=== PATIENT | male | born 1975 | race African-American/Black ===

== ENCOUNTER 2018-10-13 10:26 | Emergency (ER) | payer OTHER ==
--- NOTE | 2018-10-13 11:02 | ED ---
Influenza-Like Illness - HPI Summary HPI Summary: A 42 y/o male accompanied by his presents to the ED c/o influenza-like symptoms reaching 7/10 in severity. In the ED room, the patient has a pulse of 84 BPM, O2 saturation of 98%, and blood pressure of 158/82. As per triage, "Chills, lightheadedness, body pain, vomiting, headache, weakness for 2 days. Hx renal failure, fistula to left upper arm". 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 She stated that the patient was heading to work even though he was vomiting and feeling dizzy, however, in the midst of him going to work he called her and stated that he felt like he was going to pass out. When the patient came home, his friends were holding him up. According to the patient, his symptoms started around 0300 this morning. He denies any CP, SOB (earlier, not currently), abdominal pain, back pain, burning with urination, blood in stool, rash, depression, anxiety, edema, headache, nausea, dizziness (earlier, not currently), vomiting (earlier, not currently), diarrhea, edema, blurred vision, double vision, ear ache, sore throat, however, he feels like his ears are "beating" and does have neck pain (aching). Additionally, he had chills. He noted that he urinates frequently, but that is his baseline. He took his HBP medications this morning, but vomited shortly after that. Patient has left arm fistula on bicep. 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 - History of Current Complaint Chief Complaint: EDFluSymptoms Hx Obtained From: Patient, Family/Optometrist/Practice Owner - Onset/Duration: Sudden Onset, Lasting Days, Still Present Severity: Moderate - 7/10 Associated Signs & Symptoms: Fever, Myalgia, Headache, Vomiting - Allergy/Home Medications Allergies/Adverse Reactions: Allergies Allergy/AdvReac Type Severity Reaction Status Date / Time NSAIDS (Non-Steroidal Allergy See Comment Verified 10/13/18 10:38 Anti-Inflamma Home Medications: Home Medications Clotrimazole 1% CREAM* [Clotrimazole 1%*] 1 applic TOPICAL BID 10/13/18 [ History Confirmed 10/13/18] DOXYcycline CAP(*) [DOXYcycline 100MG CAP(*)] 100 mg PO DAILY PRN 10/13/18 [ History Confirmed 10/13/18] Diltiazem TAB* [Cardizem 60 MG Tab*] 120 mg PO BID 10/13/18 [History Confirmed 10/13/18] Febuxostat(NF) [Uloric(NF)] 40 mg PO DAILY 10/13/18 [History Confirmed 10/13/18] hydrALAZINE TAB* [Apresoline TAB*] 25 mg PO TID 10/13/18 [History Confirmed 01/26] predniSONE TAB* [Deltasone 10 MG TAB*] 10 mg PO DAILY 10/13/18 [History Confirmed 10/13/18] PMH/Surg Hx/FS Hx/Imm Hx Endocrine/Hematology History: Denies: Hx Diabetes Cardiovascular History: Reports: Hx Hypertension - Surgical History Surgery Procedure, Year, and Place: 2 FISTULAS PUT IN (2014, BOTH). Infectious Disease History: No Infectious Disease History: Denies: Traveled Outside the [place] in Last 30 Days - Family History Known Family History: Positive: Cardiac Disease - MOTHER, Diabetes, Other - CANCER - Social History Alcohol Use: None Substance Use Type: Reports: None Hx Tobacco Use: No Smoking Status (MU): Never Smoked Tobacco Review of Systems Positive: Fever, Chills Positive: Other - NEGATIVE: DOUBLE VISION. Negative: Blurred Vision Positive: Other - POSITIVE: PATIENT'S EARS ARE "BEATING". Negative: Sore Throat , Ear Ache Negative: Chest Pain Negative: Shortness Of Breath Positive: Vomiting - RESOLVED, Other - NEGATIVE: BLOOD IN STOOL, CONSTIPATION. Negative: Abdominal Pain, Diarrhea, Nausea Positive: frequency - BASELINE. Negative: dysuria, hematuria Positive: Myalgia - RESOLVED, Other - POSITIVE: NECK PAIN; NEGATIVE: BACK PAIN. Negative: Edema Negative: Rash, Bruising Neurological: Other - POSITIVE: LIGHTHEADEDNESS (RESOLVED), DIZZINESS (RESOLVED) ; NEGATIVE: LOC Positive: Headache - RESOLVED, Weakness Negative: Anxious, Depressed All Other Systems Reviewed And Are Negative: No Physical Exam - Summary Physical Exam Summary: Appearance: Alert, conversive, nontoxic appearing Skin: Warm, dry, no mottling, no rashes, no contusions HEENT: EOMI, PERRL, moist mucous membranes Neck: No masses on the neck, supple Respiratory: Clear to auscultation, breath sounds present, no rales, no rhonchi , no wheezes Cardiovascular: RRR, pulses are symmetrical in both lower and upper extremities , systolic ejection murmur Abdomen: Soft, non-tender Bowel Sounds: Present Musculoskeletal: No CVA tenderness, no obvious deformity, moving all extremities in a grossly normal manner Neurological: A&Ox3, CN II-XII Intact, moving all extremities symmetrically Psychiatric: Normal affect and mood Triage Information Reviewed: Yes Vital Signs On Initial Exam: Initial Vitals Temp Pulse Resp BP Pulse Ox 100.2 F 80 19 174/79 100 10/13/18 10:33 10/13/18 10:33 10/13/18 10:33 10/13/18 10:33 10/13/18 10:33 Vital Signs Reviewed: Yes Diagnostics - Vital Signs Vital Signs Temp Pulse Resp BP Pulse Ox 10/13/18 10:33 100.2 F 80 19 174/79 100 - Laboratory Lab Results: Lab Results 10/13/18 Range/Units 10:48 Influenza A (Rapid) Negative (Negative) Influenza B (Rapid) Negative (Negative) Result Diagrams: 10/13/18 11:45 10/13/18 15:09 Lab Statement: Any lab studies that have been ordered have been reviewed, and results considered in the medical decision making process. - Radiology CXR Radiology Interpretation Completed By: Radiologist Summary of Radiographic Findings: No evidence for acute intrathoracic disease. ED PHYSICIAN REVIEWED THIS RADIOLOGY REPORT. - EKG 1246 Cardiac Rate: NL - 81 BPM EKG Rhythm: Sinus Rhythm - 81 BPM Summary of EKG Findings: QRS NORMAL, QTc NORMAL, HYPERACUTE T-WAVES NOTED, MILD EARLY REPOLARIZATION PATTERN, NON-STEMI 1343 Cardiac Rate: NL - 94 BPM EKG Rhythm: Sinus Rhythm - 94 BPM Summary of EKG Findings: QRS NORMAL, QTc NORMAL, IMPROVEMENT OF HYPERACUTE T- WAVES, NON-STEMI. Re-Evaluation - Re-Evaluation First Eval Re-Evaluation Time: 12:28 Change: Unchanged Comment: PATIENT WAS GIVEN HIS LAB RESULTS. PATIENT ASKED MD TO CALL LIQUIFIED NATURAL GAS SPECIALIST IN [place]. CURRENTLY, PATIENT IS BEING TREATED FOR HIS HYPERKALEMIA WITH DEXTROSE, REGULAR INSULIN, CALCIUM GLUCONATE, AND MORE IV FLUIDS. Second Eval Re-Evaluation Time: 12:54 Change: Unchanged Comment: ED MD CALLED FOR PATIENT'S LIQUIFIED NATURAL GAS SPECIALIST. NO ANSWER, BUT LEFT MESSAGE. Third Eval Re-Evaluation Time: 14:15 Change: Unchanged Comment: UPDATE PATIENT ON RESULTS AND PLAN. Fourth Eval Re-Evaluation Time: 16:18 Change: Improved Comment: PATIENT CAN WALK AROUND ED, HOWEVER, HIS STOMACH IS STILL UPSET. PATIENT NOTED THAT HE FEELS LIKE HE CAN GO HOME. Fifth Eval Re-Evaluation Time: 17:00 Change: Unchanged Comment: DISCUSSED RESULTS AND PLAN/DISCHARGE WITH PATIENT. Flu Symptom Course/Dx - Course Course Of Treatment: A 42 y/o male accompanied by his presents to the ED c/ o influenza-like symptoms reaching 7/10 in severity. In the ED room, the patient has a pulse of 84 BPM, O2 saturation of 98%, and blood pressure of 158/ 82. Patient stated that he has been experiencing influenza like-symptoms since 0300 this morning such as vomiting, dizziness, lightheadedness, headache, body pain, and weakness. Physical examination findings significant for systolic ejection murmur. A CXR revealed no evidence for acute intrathoracic disease. An EKG revealed NSR of 81 BPM, normal QRS and QTc, hyperacute T-waves noted, mild early repolarization pattern, non-stemi. Another EKG revealed NSR of 94 BPM, normal QRS and QTc, improvement of hyperacute T-waves, non-stemi. Hematology, Chemistry, and serology screens were done. No significant laboratory abnormalities were found except hyperkalemia of 6 mmol/L. Additionally, influenza screens were negative. In the ED course, the patient received Calcium Gluconate, Magnesium Sulfate, Dextrose, Zofran, Regular Insulin, and IV fluids. Patient care was discussed with hospitalist, Dr. Gaetano Jaramillo, who recommended repeating potassium and having the patient walk around the ED. Patient was able to walk around ED with no issues. Patient will be discharged with a diagnosis of viral syndrome, dehydration, hyperkalemia, and acute renal insufficiency. Patient is agreeable with this plan. - Diagnoses Provider Diagnoses: Viral syndrome, Acute renal insufficiency, Dehydration, Hyperkalemia - Physician Notifications Discussed Care Of Patient With: Gaetano Jaramillo Time Discussed With Above Provider: 13:05 Instructed by Provider To: Other - ASKED ED MD TO REPEAT POTASSIUM AND HAVE HIM WALK AROUND THE ED. 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 return if worse or any new symptoms. It is important to take all medications as previously instructed. I have sent a prescription for zofran to your pharmacy. Take for nausea. Take tylenol for any fever. - Billing Disposition and Condition Condition: STABLE Disposition: Home - Attestation Statements Document Initiated by Chel: Yes Documenting Scribe: Tyrese Finley Provider For Whom Chel is Documenting (Include Credential): Meli Spencer MD Scribe Attestation: Tyrese Flowers, scribed for Meli Spencer MD on 10/13/18 at 1830. Scribe Documentation Reviewed: Yes Provider Attestation: The documentation as recorded by the Tyrese joe accurately reflects the service I personally performed and the decisions made by , Meli Spencer MD Status of Scribe Document: Viewed
[2018-10-13] MEDS ORDERED: NS 0.9% 1000 ML* 1,000 ML IV ONE ×2 (11:16→12:24)
[2018-10-13] MEDS ORDERED: Ondansetron INJ* 2 MG/ML VIAL IV ONE (11:17)
[2018-10-13 11:52] LABS: ABS Basophils 0 10^3/ul (0-0.2); ABS Eosinophils 0 10^3/ul (0-0.6); ABS Lymphocytes 0.1 10^3/ul (1.0-4.8); ABS Monocytes 0.3 10^3/ul (0-0.8); ABS Neutrophils 6.5 10^3/ul (1.5-7.7); ABS Nucleated RBC 0 10^3/ul; Eosinophil % 0 %; Hematocrit 35 % (42-52); Lymphocyte % 1.7 %; Mean Corpuscular HGB Conc 34 g/dl (31-36); Mean Corpuscular Hemoglobin 32 pg (27-31); Mean Corpuscular Volume 94 fL (80-94); Mean Platelet Volume 7.6 fL (7.4-10.4); Nucleated Red Blood Cells % 0; Platelet Count 190 10^3/ul (150-450); Red Blood Count 3.78 10^6/ul (4.00-5.40); Red Cell Distribution Width 13 % (10.5-15); White Blood Count 6.9 10^3/ul (3.5-10.8)
[2018-10-13 12:08] LABS: Albumin 4.6 g/dL (3.2-5.2); Albumin/Globulin Ratio 1.5 (1-3); BUN/Creatinine Ratio 10.2 (8-20); Calcium 8.6 mg/dL (8.6-10.3); EGFR Non-African American 7.3 (>60); Magnesium 1.7 mg/dL (1.9-2.7); Phosphorus 3.7 mg/dL (2.5-5.0); Total Bilirubin 0.6 mg/dL (0.2-1.0); Total Protein 7.6 g/dL (6.4-8.9)
[2018-10-13] MEDS ORDERED: Magnesium Sulfate 2 GM IV* 2 GM/50 ML BAG IVPB ONE (12:22)
[2018-10-13] MEDS ORDERED: Dextrose 50% Syringe 50 ML* 25 GM/50 ML SYRINGE IV PUSH ONE (12:22)
[2018-10-13] MEDS ORDERED: Calcium Gluconate INJ* 1 GM in NS 0.9% 100 ML* 100 ML IVPB ONE (12:23)
[2018-10-13] MEDS ORDERED: Insulin REGULAR(*) 1 UNITS UNIT IV PUSH ONE (12:24)
[2018-10-13] MEDS ORDERED: NS 0.9% 100 ML* 100 ML ONE (12:42)
[2018-10-13] MEDS ORDERED: Sodium Polystyrene ORAL.SOL* 15 GM/60 ML BTL PO ONE (13:09)
[2018-10-13] MEDS ORDERED: Patiromer POWDER* 8.4 GM PAK PO SCH (15:00)
[2018-10-13 15:38] LABS: BUN/Creatinine Ratio 10.4 (8-20); Calcium 8.4 mg/dL (8.6-10.3); EGFR Non-African American 7.6 (>60); Potassium 4.8 mmol/L (3.5-5.0)
[2018-10-13] MEDS ORDERED: Acetaminophen TAB* 325 MG PO ONE (15:48)
[2018-10-13] MEDS ORDERED: Ondansetron ODT TAB* 4 MG PO ONE (16:18)
[2018-10-13 17:46] VITALS: BP 133/67
== END 2018-10-13 17:45 | disposition home or self-care (01) ==
LOC: ED 10:26
DX: B34.9 Viral infection, unspecified (principal); E86.0 Dehydration; E87.5 Hyperkalemia; R50.9 Fever, unspecified; N28.9 Disorder of kidney and ureter, unspecified; R11.10 Vomiting, unspecified; R42 Dizziness and giddiness
CPT/HCPCS: 36415; 71045; 80048; 80053; 83605; 83735; 84100; 85025; 87040; 93005; 96361; 96365; 96366; 96375; 99283; A9270-GY; J0610; J2405; J3475

== ENCOUNTER → 2018-10-29 12:44 | Emergency (ER) | payer OTHER ==
[~2018-10-29 12:44] MED LIST: Morphine VIAL* 4 MG/ML VIAL (1 ml vial) IV ONE; Ondansetron INJ* 2 MG/ML VIAL IV ONE; methylPREDNISolone SOD 40 MG* 1 ML VIAL IV ONE
--- NOTE | 2018-10-29 13:06 | ED ---
Lower Extremity - HPI Summary HPI Summary: Patient presents with acute onset right lateral ankle pain over the past 2-3 days. He's noted some mild swelling here and very tender to palpation. Also hurts to bear weight and move. He has a history of gout in his hallux on this side and this feels similar. Denies injury but does play basketball - may have tweaked something? Additionally he denies numbness, tingling, weakness. No dipika fever but has felt warm and a little "off" lately. History of stage IV renal failure with fistula in place to left arm. Has been following a renal diet until he qualifies for dialysis. History of gout and has done well with prednisone in the past via IV (prefers this to PO or IM). He currently takes allopurinol and uloric prevent gout flair ups - cannot take cholchicine. Obviously due to his renal failure he cannot use NSAID's. reports he was admitted recently w/ hyperkalemia. - History of Current Complaint Chief Complaint: EDExtremityLower Stated Complaint: RIGHT ANKLE PAIN Time Seen by Provider: 10/29/18 12:49 Hx Obtained From: Patient, Family/Business Executive - , 3 young children Pain Intensity: 9 - Allergies/Home Medications Allergies/Adverse Reactions: Allergies Allergy/AdvReac Type Severity Reaction Status Date / Time NSAIDS (Non-Steroidal Allergy See Comment Verified 10/29/18 12:50 Anti-Inflamma Home Medications: Home Medications Allopurinol 100 mg PO DAILY 10/29/18 [History Confirmed 10/29/18] Calcitriol CAP* [Rocaltrol CAP*] 1 cap PO DAILY 10/29/18 [History Confirmed ] PMH/Surg Hx/FS Hx/Imm Hx Previously Healthy: Yes Endocrine/Hematology History: Denies: Hx Diabetes Cardiovascular History: Reports: Hx Hypertension History: Reports: Hx Chronic Renal Failure - stage 4, CC 17, fistula in Lt arm, pending dialysis Musculoskeletal History: Reports: Hx Gout - Lt hallux - Surgical History Surgery Procedure, Year, and Place: 2 FISTULAS PUT IN (2014, BOTH). Infectious Disease History: No Infectious Disease History: Denies: Traveled Outside the [place] in Last 30 Days - Family History Known Family History: Positive: Cardiac Disease - MOTHER, Diabetes, Other - CANCER - Social History Lives: With Family Alcohol Use: None Hx Substance Use: No Substance Use Type: Reports: None Hx Tobacco Use: No Smoking Status (MU): Never Smoked Tobacco Review of Systems Constitutional: Negative Cardiovascular: Negative Respiratory: Negative Gastrointestinal: Negative Positive: no symptoms reported Positive: Arthralgia, Edema Negative: Rash, Bruising Neurological: Negative Psychological: Normal All Other Systems Reviewed And Are Negative: Yes Physical Exam Triage Information Reviewed: Yes Vital Signs On Initial Exam: Initial Vitals Temp Pulse Resp BP Pulse Ox 99.2 F 91 16 163/85 99 10/29/18 12:54 10/29/18 12:54 10/29/18 12:54 10/29/18 12:54 10/29/18 12:54 Vital Signs Reviewed: Yes Appearance: Positive: Well-Appearing, Well-Nourished, Pain Distress - mild at rest - moderate with movement, palpation Skin: Positive: Warm, Skin Color Reflects Adequate Perfusion, Dry - no lesions, no ecchymosis Head/Face: Positive: Normal Head/Face Inspection Eyes: Positive: EOMI ENT: Positive: Hearing grossly normal Respiratory/Lung Sounds: Positive: Breath Sounds Present Cardiovascular: Positive: Pulses are Symmetrical in both Upper and Lower Extremities Musculoskeletal: Positive: Pain @ - Rt lateral ankle very tender to even light touch - mild edema compared to Lt - FROM (active and passive); no streaking, mild erythema Neurological: Positive: Normal, Sensory/Motor Intact, Alert, Oriented to Person Place, Time, CN Intact II-III Psychiatric: Positive: Normal Diagnostics - Vital Signs Vital Signs Temp Pulse Resp BP Pulse Ox 10/29/18 12:54 99.2 F 91 16 163/85 99 - Laboratory Result Diagrams: 10/29/18 13:22 10/29/18 13:22 Lab Statement: Any lab studies that have been ordered have been reviewed, and results considered in the medical decision making process. Lower Extremity Course/Dx - Course Course Of Treatment: XR: no fx, no effusion. Labs: 8.9 uric acid - BUN 75 ( better) Creat 9.25 (worse) - electrolytes WNL, ESR 24. Provided with prednisone - pt prefers IV d/t pain level and past experience. Reports no relief minutes after prednisone which he understands this will take time but will order morphine in the meantime to address acute pain - he's had this w/o difficulty. He will f/u w/ outpt team to address this issue tomorrow and return to ED if danger s/sx present. - Diagnoses Provider Diagnoses: Gout of right ankle Discharge - Sign-Out/Discharge Documenting (check all that apply): Patient Departure - Discharge Plan Condition: Stable Disposition: HOME Prescriptions: predniSONE TAB* [Deltasone TAB*] 50 mg PO DAILY #5 tab Patient Education Materials: Low Purine Diet (ED), Gout (ED) Forms: *Work Release Referrals: Anival BUSTAMANTE,Caden [Medical Doctor] - Additional Instructions: Take medication as directed Use crutches to avoid weight bearing then advance to weight bearing as tolerated Follow-up with PCP this week - call tomorrow to schedule an appointment *IF YOU FEEL WORSE, RETURN TO THE ED - Billing Disposition and Condition Condition: STABLE Disposition: Home
[2018-10-29 13:37] LABS: ABS Basophils 0 10^3/ul (0-0.2); ABS Eosinophils 0.1 10^3/ul (0-0.6); ABS Monocytes 0.6 10^3/ul (0-0.8); ABS Neutrophils 4.3 10^3/ul (1.5-7.7); ABS Nucleated RBC 0 10^3/ul; Hematocrit 36 % (42-52); Hemoglobin 12.1 g/dl (14.0-18.0); Mean Corpuscular HGB Conc 33 g/dl (31-36); Mean Corpuscular Hemoglobin 31 pg (27-31); Mean Corpuscular Volume 93 fL (80-94); Mean Platelet Volume 7.3 fL (7.4-10.4); Nucleated Red Blood Cells % 0; Platelet Count 266 10^3/ul (150-450); Red Blood Count 3.89 10^6/ul (4.00-5.40); Red Cell Distribution Width 13 % (10.5-15)
[2018-10-29 13:52] LABS: Albumin 4.5 g/dL (3.2-5.2); Albumin/Globulin Ratio 1.5 (1-3); C Reactive Protein 5.14 mg/L (<8.01); Calcium 9.2 mg/dL (8.6-10.3); EGFR Non-African American 6.3 (>60); Globulin 3.1 g/dL (2-4); Potassium 4.7 mmol/L (3.5-5.0); Total Bilirubin 0.5 mg/dL (0.2-1.0); Total Protein 7.6 g/dL (6.4-8.9); Uric Acid 8.9 mg/dL (4.4-7.6)
[2018-10-29 14:33] LABS: Erythrocyte Sed Rate 24 mm/Hr (0-14)
[2018-10-29 17:49] VITALS: BP 124/77
== END | disposition home or self-care (01) ==
LOC: ED 12:44
DX: M10.9 Gout, unspecified (principal); I10 Essential (primary) hypertension; I12.9 Hypertensive chronic kidney disease with stage 1 through stage 4 chronic kidney disease, or unspecified chronic kidney disease; N18.4 Chronic kidney disease, stage 4 (severe)
CPT/HCPCS: 36415; 80053; 83605; 84550; 85025; 85652; 86140; 96374; 96375; 99283; J2270; J2405; J2920

== ENCOUNTER → 2019-04-03 17:43 | Emergency (ER) | payer OTHER ==
[2019-04-03 19:28] LABS: ABS Eosinophils 0.1 10^3/ul (0-0.6); ABS Lymphocytes 1.2 10^3/ul (1.0-4.8); ABS Monocytes 0.4 10^3/ul (0-0.8); ABS Neutrophils 1.8 10^3/ul (1.5-7.7); Eosinophil % 2.7 %; Hematocrit 27 % (42-52); Hemoglobin 9.3 g/dL (14.0-18.0); Lymphocyte % 32.8 %; Mean Corpuscular HGB Conc 34 g/dL (31-36); Mean Corpuscular Hemoglobin 32 pg (27-31); Mean Corpuscular Volume 92 fL (80-94); Mean Platelet Volume 7.3 fL (7.4-10.4); Nucleated Red Blood Cells % 0.1; Platelet Count 167 10^3/uL (150-450); Red Blood Count 2.93 10^6 /uL (4.18-5.48); Red Cell Distribution Width 13 % (10-15); White Blood Count 3.6 10^3/uL (3.5-10.8)
[2019-04-03 19:42] LABS: ALT 36 U/L (7-52); AST 29 U/L (13-39); Albumin 3.8 g/dL (3.2-5.2); Albumin/Globulin Ratio 1.5 (1-3); Alkaline Phosphatase 72 U/L (34-104); Anion Gap 12 mmol/L (2-11); BUN/Creatinine Ratio 8.9 (8-20); Blood Urea Nitrogen 122 mg/dL (6-24); C Reactive Protein < 1.00 mg/L (<8.01); CO2 Carbon Dioxide 21 mmol/L (22-32); Calcium 6.7 mg/dL (8.6-10.3); Chloride 104 mmol/L (101-111); EGFR African American 4.9 (>60); Globulin 2.6 g/dL (2-4); Glucose 83 mg/dL (70-100); Potassium 5.6 mmol/L (3.5-5.0); Sodium 137 mmol/L (135-145); Total Protein 6.4 g/dL (6.4-8.9)
[2019-04-03 19:43] LABS: Troponin I 0.01 ng/mL (<0.04)
[2019-04-03 19:50] LABS: Urine Appearance Cloudy; Urine Bacteria Absent (Absent); Urine Bilirubin Negative (Negative); Urine Blood 2+ (Negative); Urine Color Straw; Urine Glucose Negative (Negative); Urine Ketones Negative (Negative); Urine Nitrite Negative (Negative); Urine Protein 2+(100 mg/dL) (Negative); Urine Red Blood Cell Trace(0-2/hpf) (Absent); Urine Specific Gravity 1.006 (1.010-1.030); Urine Urobilinogen Negative (Negative); Urine White Blood Cell Trace(0-5/hpf) (Absent)
--- NOTE | 2019-04-03 19:58 | ED ---
Complaint/Male - History of Current Complaint Chief Complaint: EDUrogenitalProblems Time Seen by Provider: 04/03/19 18:05 - Allergies/Home Medications Allergies/Adverse Reactions: Allergies Allergy/AdvReac Type Severity Reaction Status Date / Time NSAIDS (Non-Steroidal Allergy See Comment Verified 04/03/19 17:50 Anti-Inflamma PMH/Surg Hx/FS Hx/Imm Hx Endocrine/Hematology History: Denies: Hx Diabetes Cardiovascular History: Reports: Hx Hypertension Denies: Hx Pacemaker/ICD History: Reports: Hx Chronic Renal Failure - stage 4, CC 17, fistula in Lt arm, pending dialysis, Hx Renal Disease Musculoskeletal History: Reports: Hx Gout - Lt hallux Sensory History: Denies: Hx Hearing Aid Psychiatric History: Denies: Hx Panic Disorder - Surgical History Surgery Procedure, Year, and Place: 2 FISTULAS PUT IN (2014, BOTH). Infectious Disease History: No Infectious Disease History: Denies: Traveled Outside the [place] in Last 30 Days - Family History Known Family History: Positive: Cardiac Disease - MOTHER, Diabetes, Other - CANCER - Social History Alcohol Use: None Hx Substance Use: No Substance Use Type: Reports: None Hx Tobacco Use: No Smoking Status (MU): Never Smoked Tobacco Physical Exam Vital Signs On Initial Exam: Initial Vitals Temp Pulse Resp BP Pulse Ox 97.6 F 77 16 173/101 100 04/03/19 17:47 04/03/19 17:47 04/03/19 17:47 04/03/19 17:47 04/03/19 17:47 Diagnostics - Vital Signs Vital Signs Temp Pulse Resp BP Pulse Ox 04/03/19 19:31 68 3 160/96 100 04/03/19 19:01 72 150/91 98 04/03/19 19:00 68 100 04/03/19 18:31 67 146/87 99 04/03/19 18:04 65 100 04/03/19 18:03 71 158/94 100 04/03/19 18:01 69 170/99 100 04/03/19 17:47 97.6 F 77 16 173/101 100 - Laboratory Lab Results: Lab Results 04/03/19 04/03/19 04/03/19 Range/Units 19:17 19:17 19:19 WBC 3.6 (3.5-10.8) 10^3/uL RBC 2.93 L (4.18-5.48) 10^6 /uL Hgb 9.3 L (14.0-18.0) g/dL Hct 27 L (42-52) % MCV 92 (80-94) fL MCH 32 H (27-31) pg MCHC 34 (31-36) g/dL RDW 13 (10-15) % Plt Count 167 (150-450) 10^3/uL MPV 7.3 L (7.4-10.4) fL Neut % (Auto) 51.7 % Lymph % (Auto) 32.8 % [place] % (Auto) 11.7 % Eos % (Auto) 2.7 % Baso % (Auto) 1.1 % Absolute Neuts (auto) 1.8 (1.5-7.7) 10^3/ul Absolute Lymphs (auto) 1.2 (1.0-4.8) 10^3/ul Absolute Monos (auto) 0.4 (0-0.8) 10^3/ul Absolute Eos (auto) 0.1 (0-0.6) 10^3/ul Absolute Basos (auto) 0.0 (0-0.2) 10^3/ul Absolute Nucleated RBC 0.0 10^3/ul Nucleated RBC % 0.1 Sodium 137 (135-145) mmol/L Potassium 5.6 H (3.5-5.0) mmol/L Chloride 104 (101-111) mmol/L Carbon Dioxide 21 L (22-32) mmol/L Anion Gap 12 H (2-11) mmol/L BUN 122 H (6-24) mg/dL Creatinine 13.68 H (0.67-1.17) mg/dL Est GFR ( Amer) 4.9 (>60) Est GFR (Non-Af Amer) 4.0 (>60) BUN/Creatinine Ratio 8.9 (8-20) Glucose 83 (70-100) mg/dL Calcium 6.7 L (8.6-10.3) mg/dL Total Bilirubin 0.40 (0.2-1.0) mg/dL AST 29 (13-39) U/L ALT 36 (7-52) U/L Alkaline Phosphatase 72 (34-104) U/L Troponin I 0.01 (<0.04) ng/mL C-Reactive Protein < 1.00 (<8.01) mg/L Total Protein 6.4 (6.4-8.9) g/dL Albumin 3.8 (3.2-5.2) g/dL Globulin 2.6 (2-4) g/dL Albumin/Globulin Ratio 1.5 (1-3) Urine Color Straw Urine Appearance Cloudy Urine pH 5.0 (5-9) Ur Specific [place] 1.006 L (1.010-1.030) Urine Protein 2+(100 mg/dl) A (Negative) Urine Ketones Negative (Negative) Urine Blood 2+ A (Negative) Urine Nitrate Negative (Negative) Urine Bilirubin Negative (Negative) Urine Urobilinogen Negative (Negative) Ur Leukocyte Esterase Negative (Negative) Urine WBC (Auto) Trace(0-5/hpf) (Absent) Urine RBC (Auto) Trace(0-2/hpf) (Absent) Urine Bacteria Absent (Absent) Urine Glucose Negative (Negative) Result Diagrams: 04/03/19 19:17 04/03/19 19:17 Lab Statement: Any lab studies that have been ordered have been reviewed, and results considered in the medical decision making process.
--- NOTE | 2019-04-03 21:11 | ED ---
GI/ HPI - HPI Summary HPI Summary: Patient complains of increased urinary frequency and irritation at the tip of his penis with urination. States he had similar symptoms when he had a UTI before. Also complains of exertional SOB 1 week. Patient states he works out with weights with no decrease in function, but has noticed that when he walks up a hill he has to stop 5 or 6 times with some associated chest tightness. Denies fever, cough, sore throat, CP, N/V/D, abdominal pain, change in BM, testicular symptoms or pain or penile discharge. Medical history is FSGS, associated hypertension. Nonsmoker. Sexually active with one partner. Patient states he has fistula in his left arm but has not started dialysis. 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 - History of Current Complaint Chief Complaint: EDUrogenitalProblems Time Seen by Provider: 04/03/19 18:05 Stated Complaint: FUNNY TASTE IN MOUTH LIKE METAL, UTI PER PT Hx Obtained From: Patient Onset/Duration: Started Days Ago Timing: Intermittent Severity: Mild Current Severity: Mild Pain Intensity: 2 Additional Locations for Males: Penis Associated Signs and Symptoms: Positive: Dysuria Aggravating Factor(s): Urination Alleviating Factor(s): Nothing - Allergy/Home Medications Allergies/Adverse Reactions: Allergies Allergy/AdvReac Type Severity Reaction Status Date / Time NSAIDS (Non-Steroidal Allergy See Comment Verified 04/03/19 17:50 Anti-Inflamma PMH/Surg Hx/FS Hx/Imm Hx Endocrine/Hematology History: Denies: Hx Diabetes Cardiovascular History: Reports: Hx Hypertension Denies: Hx Pacemaker/ICD History: Reports: Hx Chronic Renal Failure - stage 4, CC 17, fistula in Lt arm, pending dialysis, Hx Renal Disease Musculoskeletal History: Reports: Hx Gout - Lt hallux Sensory History: Denies: Hx Hearing Aid Opthamlomology History: Denies: Hx Eye Prosthesis EENT History: Denies: Hx Deafness Neurological History: Denies: Hx Dementia Psychiatric History: Denies: Hx Panic Disorder - Surgical History Surgery Procedure, Year, and Place: 2 FISTULAS PUT IN (2014, BOTH). Infectious Disease History: No Infectious Disease History: Denies: Traveled Outside the [place] in Last 30 Days - Family History Known Family History: Positive: Cardiac Disease - MOTHER, Diabetes, Other - CANCER - Social History Alcohol Use: None Hx Substance Use: No Substance Use Type: Reports: None Hx Tobacco Use: No Smoking Status (MU): Never Smoked Tobacco Review of Systems Constitutional: Negative Eyes: Negative ENT: Negative Cardiovascular: Negative Respiratory: Negative Gastrointestinal: Negative Positive: dysuria. Negative: discharge Musculoskeletal: Negative Skin: Negative Neurological: Negative Psychological: Normal All Other Systems Reviewed And Are Negative: Yes Physical Exam - Summary Physical Exam Summary: No peripheral edema. Lung sounds clear to auscultation bilaterally. Fistula in left arm pain by auscultation. Vital Signs On Initial Exam: Initial Vitals Temp Pulse Resp BP Pulse Ox 97.6 F 77 16 173/101 100 04/03/19 17:47 04/03/19 17:47 04/03/19 17:47 04/03/19 17:47 04/03/19 17:47 Vital Signs Reviewed: Yes Appearance: Positive: Well-Appearing Skin: Positive: Warm Head/Face: Positive: Normal Head/Face Inspection Eyes: Positive: Normal Neck: Positive: Supple Respiratory/Lung Sounds: Positive: Clear to Auscultation Cardiovascular: Positive: Normal Abdomen Description: Positive: Nontender Male Genital Exam: Positive: Normal Genitalia Musculoskeletal: Positive: Normal Neurological: Positive: Normal Psychiatric: Positive: Normal AVPU Assessment: Alert - [place] Coma Scale Best Eye Response: 4 - Spontaneous Best Motor Response: 6 - Obeys Commands Best Verbal Response: 5 - Oriented Coma Scale Total: 15 Diagnostics - Vital Signs Vital Signs Temp Pulse Resp BP Pulse Ox 04/03/19 19:31 68 3 160/96 100 04/03/19 19:01 72 150/91 98 04/03/19 19:00 68 100 04/03/19 18:31 67 146/87 99 04/03/19 18:04 65 100 04/03/19 18:03 71 158/94 100 04/03/19 18:01 69 170/99 100 04/03/19 17:47 97.6 F 77 16 173/101 100 - Laboratory Lab Results: Lab Results 04/03/19 04/03/19 04/03/19 Range/Units 19:17 19:17 19:19 WBC 3.6 (3.5-10.8) 10^3/uL RBC 2.93 L (4.18-5.48) 10^6 /uL Hgb 9.3 L (14.0-18.0) g/dL Hct 27 L (42-52) % MCV 92 (80-94) fL MCH 32 H (27-31) pg MCHC 34 (31-36) g/dL RDW 13 (10-15) % Plt Count 167 (150-450) 10^3/uL MPV 7.3 L (7.4-10.4) fL Neut % (Auto) 51.7 % Lymph % (Auto) 32.8 % [place] % (Auto) 11.7 % Eos % (Auto) 2.7 % Baso % (Auto) 1.1 % Absolute Neuts (auto) 1.8 (1.5-7.7) 10^3/ul Absolute Lymphs (auto) 1.2 (1.0-4.8) 10^3/ul Absolute Monos (auto) 0.4 (0-0.8) 10^3/ul Absolute Eos (auto) 0.1 (0-0.6) 10^3/ul Absolute Basos (auto) 0.0 (0-0.2) 10^3/ul Absolute Nucleated RBC 0.0 10^3/ul Nucleated RBC % 0.1 Sodium 137 (135-145) mmol/L Potassium 5.6 H (3.5-5.0) mmol/L Chloride 104 (101-111) mmol/L Carbon Dioxide 21 L (22-32) mmol/L Anion Gap 12 H (2-11) mmol/L BUN 122 H (6-24) mg/dL Creatinine 13.68 H (0.67-1.17) mg/dL Est GFR ( Amer) 4.9 (>60) Est GFR (Non-Af Amer) 4.0 (>60) BUN/Creatinine Ratio 8.9 (8-20) Glucose 83 (70-100) mg/dL Calcium 6.7 L (8.6-10.3) mg/dL Total Bilirubin 0.40 (0.2-1.0) mg/dL AST 29 (13-39) U/L ALT 36 (7-52) U/L Alkaline Phosphatase 72 (34-104) U/L Troponin I 0.01 (<0.04) ng/mL C-Reactive Protein < 1.00 (<8.01) mg/L Total Protein 6.4 (6.4-8.9) g/dL Albumin 3.8 (3.2-5.2) g/dL Globulin 2.6 (2-4) g/dL Albumin/Globulin Ratio 1.5 (1-3) Urine Color Straw Urine Appearance Cloudy Urine pH 5.0 (5-9) Ur Specific [place] 1.006 L (1.010-1.030) Urine Protein 2+(100 mg/dl) A (Negative) Urine Ketones Negative (Negative) Urine Blood 2+ A (Negative) Urine Nitrate Negative (Negative) Urine Bilirubin Negative (Negative) Urine Urobilinogen Negative (Negative) Ur Leukocyte Esterase Negative (Negative) Urine WBC (Auto) Trace(0-5/hpf) (Absent) Urine RBC (Auto) Trace(0-2/hpf) (Absent) Urine Bacteria Absent (Absent) Urine Glucose Negative (Negative) Result Diagrams: 04/03/19 19:17 04/03/19 19:17 Lab Statement: Any lab studies that have been ordered have been reviewed, and results considered in the medical decision making process. GIGU Course/Dx - Course Course Of Treatment: Patient complains of increased urinary frequency and irritation at the tip of his penis with urination. States he had similar symptoms when he had a UTI before. Also complains of exertional SOB 1 week. Patient states he works out with weights with no decrease in function, but has noticed that when he walks up a hill he has to stop 5 or 6 times with some associated chest tightness. Denies fever, cough, sore throat, CP, N/V/D, abdominal pain, change in BM, testicular symptoms or pain or penile discharge. Medical history is FSGS, associated hypertension. Nonsmoker. Sexually active with one partner. Patient states he has fistula in his left arm but has not started dialysis. 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 Vital signs within normal limits. No peripheral edema. Lung sounds clear to auscultation bilaterally. Fistula in left arm pain by auscultation. Chest X-ray unremarkable. Hgb 9.3. Potassium 5.6. BUN 122. Creatinine 13.68. Calcium 6.7. Discussed patient and patient labs with patient's haunted history tour guide. on-call for patient's haunted history tour guide recommended transfer to their affiliate [facility] in [place] for dialysis. Patient agreed. Accepting physician at [place] Dr. Mckee attending for family medicine. Patient will be transferred ED to floor bed. - Diagnoses Provider Diagnoses: Acute renal failure Discharge - Sign-Out/Discharge Documenting (check all that apply): Patient Departure Patient Received Moderate/Deep Sedation with Procedure: No - Discharge Plan Condition: Stable Disposition: TRANS HIGHER LVL OF CARE FAC Referrals: Caden Florian MD [Primary Care Provider] - - Billing Disposition and Condition Condition: STABLE Disposition: Trans Higher Lvl of Care Fac
[2019-04-03 23:10] VITALS: BP 144/92
[2019-04-04 13:28] LABS: Neisseria gonorrhoeae (GC) RNA Negative (Negative)
== END | disposition short-term general hospital (02) ==
LOC: ED 17:43
DX: N17.9 Acute kidney failure, unspecified (principal); I12.9 Hypertensive chronic kidney disease with stage 1 through stage 4 chronic kidney disease, or unspecified chronic kidney disease; N18.4 Chronic kidney disease, stage 4 (severe)
CPT/HCPCS: 36415; 71046; 80053; 81003; 81015; 83880; 84484; 85025; 86140; 87086; 87491; 87591; 93005; 99284

== ENCOUNTER 2019-06-12 18:07 | Emergency (ER) | payer OTHER ==
[2019-06-12 20:44] LABS: ABS Basophils 0.1 10^3/ul (0-0.2); ABS Eosinophils 0.1 10^3/ul (0-0.6); ABS Monocytes 0.5 10^3/ul (0-0.8); ABS Neutrophils 2.4 10^3/ul (1.5-7.7); Eosinophil % 3.5 %; Hematocrit 26 % (42-52); Lymphocyte % 25.3 %; Mean Corpuscular HGB Conc 34 g/dL (31-36); Mean Corpuscular Hemoglobin 31 pg (27-31); Mean Corpuscular Volume 92 fL (80-94); Mean Platelet Volume 7.1 fL (7.4-10.4); Nucleated Red Blood Cells % 0.1; Platelet Count 187 10^3/uL (150-450); Red Blood Count 2.87 10^6 /uL (4.18-5.48); Red Cell Distribution Width 13 % (10-15); White Blood Count 4.1 10^3/uL (3.5-10.8)
[2019-06-12 21:01] LABS: Albumin/Globulin Ratio 1.5 (1-3); Calcium 6.6 mg/dL (8.6-10.3); EGFR African American 4.1 (>60); EGFR Non-African American 3.4 (>60); Globulin 2.6 g/dL (2-4); Potassium 4.8 mmol/L (3.5-5.0); Total Bilirubin 0.4 mg/dL (0.2-1.0); Total Protein 6.6 g/dL (6.4-8.9)
--- NOTE | 2019-06-12 21:18 | ED ---
GI/ HPI - HPI Summary HPI Summary: This patient is a 43 year old M w a hx of focal sclerosing glomerulonephritis presenting to ED with a chief complaint of bilateral flank pain since two days ago. His last urine two days ago was dark and he feels like his bladder is distended. While urinating, patient had abdominal cramping and low back pain, which has been constant since. Patient has not urinated in two days. Patient is not on dialysis but had fistula placed years ago for concern he may need dialysis. The patient rates the pain 6/10 in severity, achy in his lower abdomen and kidneys. Patient reports diarrhea for the past two days. Patient denies fever. His electro plater is out of [facility]. - History of Current Complaint Chief Complaint: EDUrogenitalProblems Time Seen by Provider: 06/12/19 20:17 Stated Complaint: I HAVENT PEED IN TWO DAYS,BAKE HURTS PER PT Hx Obtained From: Patient Onset/Duration: Started Days Ago - 2 days ago, Still Present Timing: Constant Severity: Moderate Current Severity: Moderate Pain Intensity: 6 Pain Characteristics: Cramping Associated Signs and Symptoms: Positive: Back Pain, Diarrhea, Flank Pain. Negative: Fever Aggravating Factor(s): Nothing Alleviating Factor(s): Nothing - Allergy/Home Medications Allergies/Adverse Reactions: Allergies Allergy/AdvReac Type Severity Reaction Status Date / Time NSAIDS (Non-Steroidal Allergy See Comment Verified 04/03/19 17:50 Anti-Inflamma Home Medications: Home Medications Diltiazem TAB* [Cardizem 60 MG Tab*] 120 mg PO BID 06/12/19 [History Confirmed 06/12/19] hydrALAZINE TAB* [Apresoline TAB*] 40 mg PO BID 06/12/19 [History Confirmed 12/26] PMH/Surg Hx/FS Hx/Imm Hx Endocrine/Hematology History: Denies: Hx Diabetes Cardiovascular History: Reports: Hx Hypertension Denies: Hx Pacemaker/ICD History: Reports: Hx Chronic Renal Failure - stage 4, CC 17, fistula in Lt arm, pending dialysis, Hx Renal Disease - focal segmental glomerulosclerosis Musculoskeletal History: Reports: Hx Gout - Lt hallux Sensory History: Denies: Hx Eye Prosthesis, Hx Deafness, Hx Hearing Aid Opthamlomology History: Denies: Hx Eye Prosthesis Neurological History: Denies: Hx Dementia Psychiatric History: Denies: Hx Panic Disorder - Surgical History Surgery Procedure, Year, and Place: 2 FISTULAS PUT IN (2015, BOTH). Infectious Disease History: No Infectious Disease History: Denies: Traveled Outside the US in Last 30 Days - Family History Known Family History: Positive: Cardiac Disease - MOTHER, Diabetes, Other - CANCER - Social History Alcohol Use: None Hx Substance Use: No Substance Use Type: Reports: None Hx Tobacco Use: No Smoking Status (MU): Never Smoked Tobacco Review of Systems Negative: Fever Positive: Abdominal Pain - Cramping, Diarrhea Positive: flank pain, other - Unable to urinate Musculoskeletal: Other - Low back pain All Other Systems Reviewed And Are Negative: Yes Physical Exam - Summary Physical Exam Summary: Constitutional: Well-developed, Well-nourished, Alert. (-) Distressed Skin: Warm, Dry HENT: Normocephalic; Atraumatic Eyes: Conjunctiva normal Neck: Musculoskeletal ROM normal neck. (-) JVD, (-) Stridor, (-) Nuchal rigidity Cardio: Rhythm regular, rate normal, Heart sounds normal; Intact distal pulses; Radial pulses are 2+ and symmetric (-) Murmur Pulmonary/Chest wall: Effort normal. (-) Respiratory distress, (-) Wheezes, (-) Rales Abd: Suprapubic fullness Musculoskeletal: (-) Edema, fistula in LUE Lymph: (-) Cervical adenopathy Neuro: Alert, Oriented x3 Psych: Mood and affect Normal Triage Information Reviewed: Yes Vital Signs On Initial Exam: Initial Vitals Temp Pulse Resp BP Pulse Ox 98.8 F 77 18 154/93 100 06/12/19 18:23 06/12/19 18:23 06/12/19 18:23 06/12/19 18:23 06/12/19 18:23 Vital Signs Reviewed: Yes Diagnostics - Vital Signs Vital Signs Temp Pulse Resp BP Pulse Ox 06/12/19 18:23 98.8 F 77 18 154/93 100 - Laboratory Lab Results: Lab Results 06/12/19 06/12/19 Range/Units 20:36 20:36 WBC 4.1 (3.5-10.8) 10^3/uL RBC 2.87 L (4.18-5.48) 10^6 /uL Hgb 9.0 L (14.0-18.0) g/dL Hct 26 L (42-52) % MCV 92 (80-94) fL MCH 31 (27-31) pg MCHC 34 (31-36) g/dL RDW 13 (10-15) % Plt Count 187 (150-450) 10^3/uL MPV 7.1 L (7.4-10.4) fL Neut % (Auto) 58.5 % Lymph % (Auto) 25.3 % Lucas % (Auto) 11.2 % Eos % (Auto) 3.5 % Baso % (Auto) 1.5 % Absolute Neuts (auto) 2.4 (1.5-7.7) 10^3/ul Absolute Lymphs (auto) 1.0 (1.0-4.8) 10^3/ul Absolute Monos (auto) 0.5 (0-0.8) 10^3/ul Absolute Eos (auto) 0.1 (0-0.6) 10^3/ul Absolute Basos (auto) 0.1 (0-0.2) 10^3/ul Absolute Nucleated RBC 0.0 10^3/ul Nucleated RBC % 0.1 Sodium 137 (135-145) mmol/L Potassium 4.8 (3.5-5.0) mmol/L Chloride 102 (101-111) mmol/L Carbon Dioxide 22 (22-32) mmol/L Anion Gap 13 H (2-11) mmol/L BUN Pending Creatinine 15.99 H (0.67-1.17) mg/dL Est GFR ( Amer) 4.1 (>60) Est GFR (Non-Af Amer) 3.4 (>60) BUN/Creatinine Ratio Pending Glucose 85 (70-100) mg/dL Calcium 6.6 L (8.6-10.3) mg/dL Total Bilirubin 0.40 (0.2-1.0) mg/dL AST 12 L (13-39) U/L ALT 16 (7-52) U/L Alkaline Phosphatase 80 (34-104) U/L Total Protein 6.6 (6.4-8.9) g/dL Albumin 4.0 (3.2-5.2) g/dL Globulin 2.6 (2-4) g/dL Albumin/Globulin Ratio 1.5 (1-3) Result Diagrams: 06/12/19 20:36 06/12/19 20:36 Lab Statement: Any lab studies that have been ordered have been reviewed, and results considered in the medical decision making process. - Ultrasound Renal Ultrasound Interpretation Completed By: Radiologist Summary of Ultrasound Findings: 1. Mild prostatomegaly with bladder outlet obstruction. 2. Right vesicoureteral reflux versus distal ureteral obstruction. 3. Severe right renal atrophy. Dr. Redd has reviewed this radiology report. Re-Evaluation - Re-Evaluation First Eval Re-Evaluation Time: 22:00 Comment: Patient states his is at work, so he wants to go home to watch his kids. He also does not want the Pickering and would prefer a pill to urinate. Second Eval Re-Evaluation Time: 23:20 Comment: US w enlarged prostate and >300 cc urine in bladder. d/w patient need for pickering but he wants to try and urinate. Patient also states he still wants leave despite being told that this could worsen his kidney failure and he could be on dialysis Third Eval Re-Evaluation Time: 23:50 Comment: Patient insists on leaving due to family concerns. Reports he was able to urinate a small amount but forgot to get sample. Repeat bladder scan w >300 cc urine. Declining pickering at this time. Given flomax. Patient will be signed out AMA. Discussed risks of leaving with patient including worsening of his renal failure, hyperkalemia leading to cardiac arrest. Patient understands. Patient is AAOx4 with clear sensorium, no signs of intoxication, no SI/HI, a normal gait and normal speech pattern and capacity to refuse care. I had an extensive conversation with the patient regarding return precautions and encouraged them to return sooner for any worsening condition, new symptoms or ANY other concerns. GIGU Course/Dx - Course Course Of Treatment: 43-year-old male with a history of focal sclerosing glomerulonephritis who presents with anuria. - Physical exam w palpable bladder , about 300 cc on bladder scan. Check ultrasound kidneys and bladder, concern for bladder obstruction. Check UA. Creatinine 15.9 from 13. Normal potassium. Patient is high risk for renal failure. - Diagnoses Provider Diagnoses: Urinary retention, Chronic kidney disease - Physician Notifications Discussed Care Of Patient With: Corry Cameron Time Discussed With Above Provider: 21:33 Instructed by Provider To: Other - Discussed patient case with Dr. Cameron who accepted patient for admission to [facility] [place]. At [id number], discussed patient case with Dr. Cameron and updated her on patient's decision to AMA. Discharge ED - Sign-Out/Discharge Documenting (check all that apply): Patient Departure - AMA Patient Received Moderate/Deep Sedation with Procedure: No - Discharge Plan Condition: Fair Disposition: AGAINST MEDICAL ADVICE Prescriptions: Tamsulosin CAP* [Flomax CAP*] 0.4 mg PO BEDTIME 10 Days #10 cap Patient Education Materials: Chronic Kidney Disease (ED) Referrals: Anival BUSTAMANTE,Caden [Primary Care Provider] - Ashley Medina MD [Medical Doctor] - Additional Instructions: You were seen in the emergency department for inability to urinate. Your ultrasound showed an enlarged prostate and a bladder obstruction which is why you cannot urinate. We recommended that you stay, and be seen by our electro plater as well as get a Pickering. We understand that you are unable to stay , however recommend that you seek medical attention as soon as you are able to come back to the emergency department as your kidneys are very fragile and you could end up on dialysis. You can call the electro plater as well for an outpatient appointment. Please return for continued inability to urinate, pain , or if you are concerned. If any studies were not completed at the time of discharge you will be called with the relevant results. Please follow up with your primary care doctor in next 2-3 days and return to emergency department for worsening or concerning symptoms. - Billing Disposition and Condition Condition: FAIR Disposition: Against Medical Advice - Attestation Statements Document Initiated by Chel: Yes Documenting Scribe: Edward Patterson Provider For Whom Chel is Documenting (Include Credential): Wale Redd MD Scribe Attestation: I, Edward Patterson, scribed for Wale Redd MD on 06/13/19 at 0157. Scribe Documentation Reviewed: Yes Provider Attestation: The documentation as recorded by the Edward joe accurately reflects the service I personally performed and the decisions made by me, Wale Redd MD Status of Scribe Document: Viewed
[2019-06-12 21:24] LABS: BUN/Creatinine Ratio 9.5 (8-20)
[2019-06-12] MEDS ORDERED: Tamsulosin CAP* 0.4 MG PO ONE ×2 (21:57→23:49)
[2019-06-13 00:14] VITALS: BP 178/109
== END 2019-06-13 00:12 | disposition left against medical advice (07) ==
LOC: ED 18:07
DX: R33.9 Retention of urine, unspecified (principal); N18.4 Chronic kidney disease, stage 4 (severe); M54.9 Dorsalgia, unspecified; R19.7 Diarrhea, unspecified; R10.84 Generalized abdominal pain; I10 Essential (primary) hypertension; I12.9 Hypertensive chronic kidney disease with stage 1 through stage 4 chronic kidney disease, or unspecified chronic kidney disease; M10.9 Gout, unspecified; Z53.21 Procedure and treatment not carried out due to patient leaving prior to being seen by health care provider
CPT/HCPCS: 36415; 76775; 80053; 85025; 99282

== ENCOUNTER 2019-09-28 10:35 | Emergency (ER) | payer OTHER ==
--- NOTE | 2019-09-28 11:28 | ED ---
GI/ HPI - HPI Summary HPI Summary: This pt is a 43 y/o male presenting to [facility] c/o urinary urgency and dysuria for the past few weeks. Pt reports he has hx of ESRD (for 30 years) and is on dialysis Tuesdays, , and Saturdays. He notes he did not have dialysis yesterday () but did have it 3 days ago (Tuesday). Pt reports for the past few weeks when he is done urinating he feels like "something is stuck" at the tip of his penis. He also notes he has the urgency to urinate every 15 minutes but only has urine dribbling out and not a normal stream. Additionally pt states he has dysuria. Pt reports he is straining so hard and has a bowel movement every 30 minutes, described as not loose stool but also not solid. Denies fever, chills, nausea, vomiting. Pt denies having these symptoms in the past. Yesterday he notes he had right testicular pain, "like something was there" along with lower abd pain. Denies testicular pain today. Denies penile discharge. He reports he can smell urine in his underwear. Denies hx of STDs. Pt reports he only has 1 sexual partner but notes he has not had recent sex. 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 Allergic to NSAIDs. Pt notes he used to smoke marijuana. Denies tobacco or alcohol use. Medications reviewed. Allergies noted. - History of Current Complaint Chief Complaint: EDUrogenitalProblems Time Seen by Provider: 09/28/19 11:13 Stated Complaint: POSSIBLE UTI Hx Obtained From: Patient Onset/Duration: Started Weeks Ago, Still Present Timing: Lasting Weeks Current Severity: Moderate Pain Intensity: 10 Additional Locations for Males: Penis Pain Characteristics: Burning Associated Signs and Symptoms: Positive: Dysuria, UTI Symptoms - urinary urgency. Negative: Nausea, Vomiting, Fever, Chills, New Sexual Partner Additional Signs & Symptoms: Negative: Penile Discharge Aggravating Factor(s): Nothing Alleviating Factor(s): Nothing - Allergy/Home Medications Allergies/Adverse Reactions: Allergies Allergy/AdvReac Type Severity Reaction Status Date / Time NSAIDS (Non-Steroidal Allergy See Comment Verified 09/28/19 10:47 Anti-Inflamma Home Medications: Home Medications Calcium Acetate CAP* [Phoslo CAP*] 667 mg PO TID WITH MEALS 09/28/19 [History Confirmed 09/28/19] PMH/Surg Hx/FS Hx/Imm Hx Endocrine/Hematology History: Denies: Hx Diabetes Cardiovascular History: Reports: Hx Hypertension Denies: Hx Pacemaker/ICD History: Reports: Hx Chronic Renal Failure - stage 4, CC 17, fistula in Lt arm, pending dialysis, Hx Renal Disease - focal segmental glomerulosclerosis Musculoskeletal History: Reports: Hx Gout - Lt hallux Sensory History: Denies: Hx Eye Prosthesis, Hx Deafness, Hx Hearing Aid Opthamlomology History: Denies: Hx Eye Prosthesis Neurological History: Denies: Hx Dementia Psychiatric History: Denies: Hx Panic Disorder - Surgical History Surgical History: Yes Surgery Procedure, Year, and Place: 2 FISTULAS PUT IN (2014, BOTH). Infectious Disease History: No Infectious Disease History: Denies: Traveled Outside the [place] in Last 30 Days - Family History Known Family History: Positive: Cardiac Disease - MOTHER, Diabetes, Other - CANCER Family History: No FHx of kidney problems. - Social History Alcohol Use: None Hx Substance Use: No Substance Use Type: Reports: None Hx Tobacco Use: No Smoking Status (MU): Never Smoked Tobacco Review of Systems Negative: Fever, Chills Negative: Vomiting, Nausea Genitourinary: Other - POSITIVE: right testicle pain Positive: dysuria, frequency. Negative: discharge All Other Systems Reviewed And Are Negative: Yes Physical Exam - Summary Physical Exam Summary: Constitutional: Well-developed, Well-nourished, Alert. (-) Distressed Skin: Warm, Dry HENT: Normocephalic; Atraumatic Eyes: Conjunctiva normal Neck: Musculoskeletal ROM normal neck. (-) JVD, (-) Stridor, (-) Tracheal deviation Cardio: Rhythm regular, rate normal, Heart sounds normal; Intact distal pulses; The pedal pulses are 2+ and symmetric. Radial pulses are 2+ and symmetric. (-) Murmur Pulmonary/Chest wall: Effort normal. (-) Respiratory distress, (-) Wheezes, (-) Rales Abd: Soft, (-) tenderness, (-) Distension, (-) Guarding, (-) Rebound Musculoskeletal: (-) Edema. Left AV fistula, benign. Lymph: (-) Cervical adenopathy Neuro: Alert, Oriented x3 Psych: Mood and affect Normal Triage Information Reviewed: Yes Vital Signs On Initial Exam: Initial Vitals Temp Pulse Resp BP Pulse Ox 98.7 F 74 16 194/111 100 09/28/19 10:46 09/28/19 10:46 09/28/19 10:46 09/28/19 10:46 09/28/19 10:46 Vital Signs Reviewed: Yes Procedures - Sedation Patient Received Moderate/Deep Sedation with Procedure: No Diagnostics - Vital Signs Vital Signs Temp Pulse Resp BP Pulse Ox 09/28/19 10:46 98.7 F 74 16 194/111 100 - Laboratory Result Diagrams: 09/28/19 11:29 09/28/19 11:29 Lab Statement: Any lab studies that have been ordered have been reviewed, and results considered in the medical decision making process. Re-Evaluation - Re-Evaluation First Eval Re-Evaluation Time: 12:25 Comment: Pt reports he is having issues at home, having worsening thoughts. He thinks about hurting himself but he is not there yet. Pt is not telling me all the details but wants to speak with psychiatrist. He is medically cleared. Second Eval Re-Evaluation Time: 14:21 Comment: Arianne, mental health radio repairman, did an evaluation and reports patient is not suicidal. Case was reviewed by Dr. Sweet, psychiatrist, and recommends discharge. Patient will be discharged home with referral to [facility]. GIGU Course/Dx - Course Course Of Treatment: Patient is here dysuria and urgency over the past week. Patient is on dialysis and missed his dialysis yesterday. Patient had a UA which showed UTI and was started on Bactrim. Patient does not need emergent dialysis per his labs and clinical picture. Patient did state that he is having some mental health issues related to his family life and his starting dialysis. Patient was seen by the psychiatric team and they recommended outpatient treatment. - Diagnoses Provider Diagnoses: UTI (urinary tract infection), Mood disorder Discharge ED - Sign-Out/Discharge Documenting (check all that apply): Patient Departure - Discharge home - Discharge Plan Condition: Stable Disposition: HOME Prescriptions: Sulfamethox/Trimethoprim DS* [Bactrim DS 800/160 TAB*] 1 tab PO BID 7 Days #14 tab Referrals: No Primary Care Phys,NOPCP [Primary Care Provider] - - Billing Disposition and Condition Condition: STABLE Disposition: Home - Attestation Statements Document Initiated by Chel: Yes Documenting Scribe: Mary Crawley Provider For Whom Chel is Documenting (Include Credential): Gómez Naqvi MD Scribe Attestation: Mary Flowers, scribed for Gómez Naqvi MD on 09/28/19 at 1625. Scribe Documentation Reviewed: Yes Provider Attestation: The documentation as recorded by the Mary joe accurately reflects the service I personally performed and the decisions made by me, Gómez Naqvi MD Status of Scribe Document: Viewed
[2019-09-28 11:46] LABS: ABS Eosinophils 0.1 10^3/ul (0-0.6); ABS Lymphocytes 1.1 10^3/ul (1.0-4.8); ABS Monocytes 0.4 10^3/ul (0-0.8); ABS Neutrophils 2.9 10^3/ul (1.5-7.7); Eosinophil % 1.8 %; Hematocrit 32 % (42-52); Hemoglobin 10.7 g/dL (14.0-18.0); Lymphocyte % 24.1 %; Mean Corpuscular HGB Conc 33 g/dL (31-36); Mean Corpuscular Hemoglobin 32 pg (27-31); Mean Corpuscular Volume 95 fL (80-94); Mean Platelet Volume 6.9 fL (7.4-10.4); Nucleated Red Blood Cells % 0.1; Platelet Count 246 10^3/uL (150-450); Red Cell Distribution Width 15 % (10-15); White Blood Count 4.5 10^3/uL (3.5-10.8)
[2019-09-28 11:52] LABS: Urine Appearance Clear; Urine Bilirubin Negative (Negative); Urine Blood Negative (Negative); Urine Color Straw; Urine Glucose Negative (Negative); Urine Ketones Negative (Negative); Urine Nitrite Negative (Negative); Urine Protein 2+(100 mg/dL) (Negative); Urine Specific Gravity 1.009 (1.010-1.030); Urine Urobilinogen Negative (Negative)
[2019-09-28 12:04] LABS: BUN/Creatinine Ratio 3.9 (8-20); Calcium 9.5 mg/dL (8.6-10.3); EGFR African American 4.5 (>60); EGFR Non-African American 3.7 (>60); Potassium 5.1 mmol/L (3.5-5.0)
[2019-09-28 12:05] LABS: Urine Bacteria Absent (Absent); Urine Red Blood Cell Trace(0-2/hpf) (Absent); Urine Squamous Epithelial Cell Present (Absent); Urine White Blood Cell 2+(11-20/hpf) (Absent)
[2019-09-28] MEDS ORDERED: Sulfamethox/Trimethoprim DS 800/160* TAB PO ONE (12:26)
[2019-09-28 13:06] LABS: HIV 4th Generation Nonreactive (Nonreactive)
[2019-09-28 14:45] VITALS: BP 163/97
== END 2019-09-28 14:44 | disposition home or self-care (01) ==
LOC: ED 10:35
DX: N39.0 Urinary tract infection, site not specified (principal); I12.9 Hypertensive chronic kidney disease with stage 1 through stage 4 chronic kidney disease, or unspecified chronic kidney disease; N18.4 Chronic kidney disease, stage 4 (severe); Z99.2 Dependence on renal dialysis; Z88.6 Allergy status to analgesic agent
CPT/HCPCS: 36415; 80048; 81003; 81015; 85025; 87086; 87389; 99284; A9270-GY

== ENCOUNTER → 2020-01-06 15:01 | Emergency (ER) | payer SELFPAY ==
--- NOTE | 2020-01-06 15:17 | ED ---
GI/ HPI - HPI Summary HPI Summary: Patient is a 44 y/o M presenting to the ED for a chief complaint of urinary frequency and urinary urgency. Patient reports having difficulty with urinary voiding which he describes as having to "strain." Patient denies fever. Prior to this episode, patient last had urinary problems 2-3 months ago. At that time , he was [facility] at [facility] and prescribed antibiotics with some relief. No aggravating or alleviating factors are reported. PMHx is significant for a left AV fistula and focal segmental glomerulosclerosis. In the past, patient has had a Lynn catheter placed for a urinary problem. Patient is on dialysis which he receives at [facility] 3 times weekly, last receiving treatment on 01/04/20. Dr. Juno Bundy is his urologist. - History of Current Complaint Chief Complaint: EDUrogenitalProblems Time Seen by Provider: 01/06/20 15:04 Stated Complaint: CANT URINATE PER PT Hx Obtained From: Patient Onset/Duration: Atraumatic Timing: Constant Severity: Moderate Current Severity: Moderate Associated Signs and Symptoms: Positive: UTI Symptoms - Positive urinary frequency, urinary urgency, and difficulty with urinary voiding. Negative: Fever Aggravating Factor(s): Nothing Alleviating Factor(s): Nothing - Allergy/Home Medications Allergies/Adverse Reactions: Allergies Allergy/AdvReac Type Severity Reaction Status Date / Time NSAIDS (Non-Steroidal Allergy See Comment Verified 09/28/19 10:47 Anti-Inflamma Home Medications: Home Medications Diltiazem TAB* [Cardizem 60 MG Tab*] 120 mg PO BID 06/12/19 [History Confirmed 09/28/19] hydrALAZINE TAB* [Apresoline TAB*] 25 mg PO TID 06/12/19 [History Confirmed ] Calcium Acetate CAP* [Phoslo CAP*] 667 mg PO TID WITH MEALS 09/28/19 [History Confirmed 09/28/19] Sulfamethox/Trimethoprim DS* [Bactrim DS 800/160 TAB*] 1 tab PO BID 7 Days #14 tab 09/28/19 [Rx] PMH/Surg Hx/FS Hx/Imm Hx Previously Healthy: Yes Endocrine/Hematology History: Denies: Hx Diabetes Cardiovascular History: Reports: Hx Hypertension Denies: Hx Pacemaker/ICD History: Reports: Hx Chronic Renal Failure - stage 4, CC 17, fistula in Lt arm, pending dialysis, Hx Dialysis - M, W, F, Hx Renal Disease - focal segmental glomerulosclerosis, Other Problems/Disorders - Left AV fistula Musculoskeletal History: Reports: Hx Gout - Lt hallux Sensory History: Denies: Hx Eye Prosthesis, Hx Legally Blind, Hx Deafness, Hx Hearing Aid Opthamlomology History: Denies: Hx Eye Prosthesis, Hx Legally Blind EENT History: Denies: Hx Deafness Neurological History: Denies: Hx Dementia Psychiatric History: Denies: Hx Panic Disorder - Surgical History Surgical History: Yes Surgery Procedure, Year, and Place: 2 FISTULAS PUT IN (2015, BOTH). Infectious Disease History: No Infectious Disease History: Denies: Traveled Outside the [place] in Last 30 Days - Family History Known Family History: Positive: Cardiac Disease - MOTHER, Diabetes, Other - CANCER Family History: No FHx of kidney problems. - Social History Occupation: Employed Full-time Lives: With Family Alcohol Use: None Hx Substance Use: No Substance Use Type: Reports: None Substance Use Comment - Amount & Last Used: weekly Hx Tobacco Use: No Smoking Status (MU): Never Smoked Tobacco Review of Systems Negative: Fever Positive: frequency - Urinary, urgency - Urinary, other - Positive difficulty with urinary voiding All Other Systems Reviewed And Are Negative: Yes Physical Exam - Summary Physical Exam Summary: Constitutional: Well-developed, Well-nourished, Alert. (-) Distressed Skin: Warm, Dry HENT: Normocephalic; Atraumatic Eyes: Conjunctiva normal Neck: Musculoskeletal ROM normal neck. (-) JVD, (-) Stridor, (-) Nuchal rigidity Cardio: Rhythm regular, rate normal, Heart sounds normal; Intact distal pulses; Radial pulses are 2+ and symmetric. (-) Murmur Pulmonary/Chest wall: Effort normal. (-) Respiratory distress, (-) Wheezes, (-) Rales Abd: Soft, (-) tenderness, (-) Distension, (-) Guarding, (-) Rebound Musculoskeletal: (-) Edema Lymph: (-) Cervical adenopathy Neuro: Alert, Oriented x3 Psych: Mood and affect Normal Triage Information Reviewed: Yes Vital Signs Reviewed: Yes Procedures - Sedation Patient Received Moderate/Deep Sedation with Procedure: No Diagnostics - Laboratory Result Diagrams: 01/06/20 15:27 03/29/20 15:27 Lab Statement: Any lab studies that have been ordered have been reviewed, and results considered in the medical decision making process. - EKG 16:37 Cardiac Rate: NL - 68 BPM EKG Rhythm: Sinus Rhythm ST Segment: Normal Ectopy: None EKG Comparison: No Significant Change - From 04/03/19 Summary of EKG Findings: An EKG at 16:37 reveals normal sinus rhythm with 68 BPM , T wave inversion in lead III, nml axis, nml intervals. No STEMI. No acute changes. When compared to 04/03/19, no significant change. ED physician has reviewed and interpreted this EKG. Re-Evaluation - Re-Evaluation First Eval Re-Evaluation Time: 15:20 Change: Unchanged Comment: At 15:20, patient emptied all 11 mL shown on bladder scan. GIGU Course/Dx - Course Course Of Treatment: 44 y/o male w hx ESRD on dialysis T/Th/Sat p/w dysuria and frequency. - PE well appearing. Abd soft. Post void 11 mL. Recent UC negative, will resend UA, Gc/Chlam. - check basic labwork. - K 5.5, no EKG changes. Has dialysis tomorrow. - Diagnoses Provider Diagnoses: ESRD (end stage renal disease), Dysuria, Hyperkalemia Discharge ED - Sign-Out/Discharge Documenting (check all that apply): Patient Departure - Discharge - Discharge Plan Condition: Stable Disposition: HOME Patient Education Materials: Dysuria (ED) Referrals: [facility] [Outside] Additional Instructions: You were seen in the emergency department for dysuria. Your urine showed trace bacteria, last time your urine culture did not show any growth therefore we will hold off on antibiotics until urine culture results. Please go to dialysis tomorrow, your potassium is 5.5 today which is slightly high. Please follow up with your primary care doctor in next 2-3 days and return to emergency department for worsening or concerning symptoms. It was a pleasure taking care of you today. - Billing Disposition and Condition Condition: STABLE Disposition: Home - Attestation Statements Document Initiated by Scribe: Yes Documenting Scribe: Jagruti King Provider For Whom Scribe is Documenting (Include Credential): Wale Redd MD Scribe Attestation: I, Jagruti King, scribed for Wale Redd MD on 01/06/20 at 1736. Scribe Documentation Reviewed: Yes Provider Attestation: The documentation as recorded by the scribe, Jagruti King accurately reflects the service I personally performed and the decisions made by me, Wale Redd MD Status of Scribe Document: Viewed
[2020-01-06 15:37] LABS: ABS Eosinophils 0.1 10^3/ul (0-0.6); ABS Monocytes 0.4 10^3/ul (0-0.8); ABS Neutrophils 2.4 10^3/ul (1.5-7.7); Eosinophil % 3.6 %; Hematocrit 32 % (42-52); Hemoglobin 11.1 g/dL (14.0-18.0); Lymphocyte % 25.9 %; Mean Corpuscular HGB Conc 35 g/dL (31-36); Mean Corpuscular Hemoglobin 34 pg (27-31); Mean Corpuscular Volume 99 fL (80-94); Mean Platelet Volume 7.2 fL (7.4-10.4); Platelet Count 237 10^3/uL (150-450); Red Blood Count 3.25 10^6 /uL (4.18-5.48); Red Cell Distribution Width 14 % (10-15)
[2020-01-06 15:38] LABS: Urine Appearance Clear; Urine Bilirubin Negative (Negative); Urine Blood 1+ (Negative); Urine Color Yellow; Urine Glucose 1+(50 mg/dL) (Negative); Urine Ketones Negative (Negative); Urine Nitrite Negative (Negative); Urine Protein 2+(100 mg/dL) (Negative); Urine Urobilinogen Negative (Negative)
--- OUTSIDE RECORDS SUMMARY | 2020-01-06 15:47 | XMS REPORT | Continuity of Care Document ---
:1975 Author Organization 0001 - [employer] [facility] Address [address] [place] [address] Phone Care Team Providers Name Role Phone JYOTSNA GALVAN MD Unavailable Unavailable Allergies, Adverse Reactions, Alerts Substance Reaction Status Substance Type Unknown WARNIN allergy(ies) could not be collected because the type is not supported. Please contact [facility] for further details. Medications Medication Instructions Dosage Effective Dates Status Comments (start - stop) sildenafil 50 mg take 1 tablet by oral 50 MG - Active tablet route every day as needed approximately 1 hour before sexual activity Cardizem 120 mg take 1 tablet by oral 120 MG - Active tablet route 2 times every day hydralazine 25 mg take 1 tablet by oral 25 MG - Active tablet route 3 times every day with food Renvela 800 mg tablet take 1 (800MG) by oral 800 MG - Active route 4 times every day with meals calcitriol 0.25 mcg take 1 capsule once a - Active capsule day Viagra 100 mg tablet take 1 tablet by oral 100 MG - Active route every day as needed approximately 1 hour before sexual activity Viagra 25 mg tablet take 1 tablet by oral 25 MG - Active route every day as needed approximately 1 hour before sexual activity Blood Pressure Cuff Large, automatic - Active Problems Condition Effective Dates (start - Clinical Status stop) Superior glenoid labrum lesion of right - shoulder, subs Other chronic pain - Other articular cartilage disorders, - right shoulder Elevated blood-pressure reading, w/o - diagnosis of htn Incomplete rotatr-cuff tear/ruptr of r - shoulder, not trauma Superior glenoid labrum lesion of right - shoulder, subs Chronic right shoulder pain Other chronic pain Dysuria Erectile dysfunction, unspecified erectile dysfunction type Chronic kidney disease, stage 5 Hyp chr kidney disease w stage 5 chr - kidney disease or ESRD Secondary hyperparathyroidism of renal - origin Anemia in chronic kidney disease - Unspecified hydronephrosis - Personal history of nicotine dependence - Chronic kidney disease, stage 5 Hypertension secondary to other renal disorders Other specified disorders of kidney and ureter Pre-op evaluation Superior glenoid labrum lesion of right shoulder, subs Encounter for immunization - Superior glenoid labrum lesion of right - shoulder, subs Other sprain of right shoulder joint, - subsequent encounter Separation of right acromioclavicular joint, subsequent encounter Chronic kidney disease, stage 5 Hyp chr kidney disease w stage 5 chr - kidney disease or ESRD Secondary hyperparathyroidism of renal - origin Anemia in chronic kidney disease - Personal history of nicotine dependence - Superior glenoid labrum lesion of right - shoulder, subs Unspecified sprain of right shoulder - joint, subs encntr Elevated blood-pressure reading, w/o - diagnosis of htn Chronic kidney disease, stage 5 Erectile dysfunction due to diseases classified elsewhere Obstructive uropathy Essential hypertension ESRD (end stage renal disease) Chronic right shoulder pain Hyp chr kidney disease w stage 5 chr - kidney disease or ESRD Personal history of nicotine dependence - End stage renal disease Pain in right shoulder - Elevated blood-pressure reading, w/o - diagnosis of htn Right anterior shoulder pain Chronic kidney disease, stage 5 Essential hypertension Hyp chr kidney disease w stage 5 chr - kidney disease or ESRD Pain in unspecified shoulder Pain in unspecified shoulder Chronic kidney disease, stage 5 Hyp chr kidney disease w stage 5 chr - kidney disease or ESRD Unspecified hydronephrosis - Separation of right acromioclavicular joint, sequela Chronic kidney disease, stage 5 Essential hypertension Hyp chr kidney disease w stage 5 chr - kidney disease or ESRD Hydronephrosis, unspecified hydronephrosis type Chronic kidney disease, stage 4 (severe) Testicular pain Impotence Incomplete bladder emptying Nocturia Chronic kidney disease, stage 5 Erectile dysfunction due to diseases classified elsewhere Essential hypertension Hypertensive chronic kidney disease w - stg 1-4/unsp chr kdny Hyp chr kidney disease w stage 5 chr - kidney disease or ESRD Encounter for screening for other viral - diseases Encounter for screening for human - immunodeficiency virus Essential (primary) hypertension Chronic kidney disease, stage 5 Tinea corporis Hypertensive chronic kidney disease w - stg 1-4/unsp chr kdny Personal history of nicotine dependence - Hyp chr kidney disease w stage 5 chr - kidney disease or ESRD Chronic kidney disease, stage 5 FSGS (focal segmental glomerulosclerosis) Essential hypertension Obstructive uropathy Hyp chr kidney disease w stage 5 chr - kidney disease or ESRD Personal history of nicotine dependence - Arm numbness left Chronic kidney disease, stage 5 Essential (primary) hypertension Obstructive uropathy Hyp chr kidney disease w stage 5 chr - kidney disease or ESRD Personal history of nicotine dependence - Left arm pain Essential (primary) hypertension Chronic kidney disease, stage 4 (severe) Hypertensive chronic kidney disease w - stg 1-4/unsp chr kdny Nicotine dependence, cigarettes, - uncomplicated Chronic kidney disease, stage 4 (severe) Hypertensive kidney disease with CKD stage IV Obstructive uropathy Focal segmental glomerulosclerosis Nicotine dependence, cigarettes, - uncomplicated Dysuria Encounter for screening for other viral - diseases Other prostatic inflammatory diseases Tinea unguium Essential (primary) hypertension Personal history of nicotine dependence - Chronic kidney disease, stage 5 Stage 5 chronic kidney disease due to benign hypertension Chronic kidney disease, stage 5 Obstructive uropathy Gout of big toe Tinea Hypertension Dysuria Chronic Kidney Disease, Stage IV (severe) Hypertension, Unspecified Disease, hypertensive renal NOS, w/o RF - Pain in shoulder Urinary frequency Pain in joint, shoulder region Hypertension, essential NOS Pain in joint, shoulder region Varix, scrotal - Shoulder pain Accidental fall NEC Shoulder pain Wrist pain Hypertension, essential NOS Accidental fall on/from stairs or steps - NEC Gout NOS Chronic renal insufficiency Testicular pain Hypertension, essential NOS Testicular pain Gout NOS Gout NOS Chronic Kidney Disease, Stage IV (severe) Chronic Kidney Disease, Stage IV (severe) Erectile dysfunction Hypertension, essential NOS Urethritis Discharge, urethral - Dysuria Fx closed radius, head Dislocation closed acromioclavicular Wrist pain Aftercare, healing traumatic fx, upper - arm Aftercare, healing traumatic fx, lower - arm Radial head fracture Acromioclavicular joint separation Lumbago Lumbago Accidental fall NEC - Place of occurrence, industrial - Chronic renal insufficiency Lumbago Lumbago - Lumbago - Lumbago - UPJ obstruction, acquired Gout NOS Gout NOS - Gout NOS - Open wound Wound open, scalp w/o complication - Wound open, site NOS w/o complication - Wound open, site NOS w/o complication - Gout Gout NOS - Gout NOS Hypertension, essential NOS Screening for viral disease NEC - Gout NOS - Hypertension, essential NOS - Gout NOS - Gout NOS - Dermatophytosis, scalp and myers Hypertension, essential NOS Dermatitis NEC - Dermatophytosis, scalp and myers - Hypertension, essential NOS - Dermatophytosis, scalp and myers Hypertension, essential NOS Retention, urine NOS Chronic Kidney Disease, Stage IV (severe) Dermatophytosis, scalp and myers - Hypertension, essential NOS - Retention, urine NOS - Urinary retention Retention, urine NOS - Gout Gout NOS - Tinea capitis Cerumen impaction Dermatophytosis, scalp and myers - Impacted cerumen - Urinary Tract Infection - Urethritis NEC - Urethritis NEC - Dysuria Dysuria - Bleeding nose Epistaxis - Hypertension, essential NOS Chronic Kidney Disease, Stage IV (severe) Dermatitis NOS Chronic renal disease, stage IV Erectile dysfunction Hypertension Foot pain, left Disorder, psychosexual NOS - Renal failure, acute NOS - Chest pain Acute Gout NOS Acute Urethritis NEC Acute Urethritis NEC Acute Orchitis/epididymitis NOS Acute Urethritis NEC Acute Orchitis/epididymitis NOS Acute Hypertension, essential NOS - Chronic Procedures Procedure Date Procedure Unknown Results Test Name Date and Time Measure Units Reference Range Abnormal Flag Status Comments Unknown Encounters Encounter Practice Location Reason(s) Diagnoses Date Provider Providers Description For Visit Copied on Encounter 0001 - S Ortho Superior MANDY S Inc, Ctr Ortho glenoid labrum [facility] 33-57 lesion of 0 [address] right Tristiany Miguel, [place], [place], [place] subsOther [address]. [place], [facility] tel:[phone], [place] painOther [address] tel:+60 articular [phone] cartilage disorders, right shoulderElevat ed blood-pressure reading, w/o diagnosis of htnIncomplete rotatr-cuff tear/ruptr of r shoulder, not trauma 0001 - S Ortho ISABELLA MOSELEY. S Inc, Ctr Ortho S [address] Sean E, [place], [address]. [place] tel:[phone] [place], [address], [place] tel:[phone] 0001 - S Ortho Superior ISABELLA MOSELEY. S Inc, Ctr Ortho glenoid labrum [facility] [address] lesion of [address] Sean right E, [place], Street, [place], [place], [address]. [place] tel:[phone] [place], [address], [place] tel:[phone] 0001 - [facility] Primary Chronic right Castro-0 TREADWELL S Inc, Care [place] shoulder 3- DANISHA. [address] [place] [address], [place] [address], painDysuriaEre [place], [place] ctile [address]. [place], dysfunction, tel:[phone], [place] unspecified [address] tel:[phone] erectile [phone] dysfunction type 0001 - [facility] Primary Oct-0 TREADWELL S Inc, Care [place] 2-OctE. [address] [place] [address] City 0 [facility] [address], Sean [place] [address], [place], [place] [address]. [place], tel:[phone], [place] [address] tel:[phone] 0001 - [facility] Primary Nov- AMELIA GRACE. [facility] Inc, Care [place] 1-[address] [place] [address] 9 [place], [place], Street, [address]. [place] tel:[phone] [place], [address], [place] tel:[phone] 0001 - [facility] Chronic kidney Sep-1 MICHAEL [facility], Nephrology disease, stage 9-201 [facility]. -57 5Hyp chr [address], [place] kidney disease Floor 5, Street, w stage 5 chr [place], [place], [address]. [place], or tel:[phone], [place] ESRDSecondary [address] tel:[phone] hyperparathyro [phone] idism of renal originAnemia in chronic kidney diseaseUnspeci fied hydronephrosis Personal history of nicotine dependence 0001 - [facility] Primary Chronic kidney Sep-1 AMELIA GRACE. S Inc, Care [place] disease, stage 8-[address] [place] [address] 5Hypertension 9 [facility] secondary to [place], [place], Street, other renal [address]. [place] disordersOther tel:[phone] [place], specified [phone], [place] disorders of tel: kidney and [phone] ureterPre-op evaluationSupe rior glenoid labrum lesion of right shoulder, subs 0001 - [facility] Primary Encounter for BAKARI S Inc, Care [place] immunization SHARIF. [address], Sean [facility], Street, [place], [place], [place], [address]. [address], [place] tel:[phone] tel: [phone] 0001 - [facility] Ortho Superior Calvin-0 GALVAN [facility] Inc, Ctr Ortho glenoid labrum - JYOTSNA. [facility] 33- lesion of 9 4433 [facility] right [address], Street, [facility], [place], [place], [place] subsOther [address]. [place], sprain of tel:[phone], [place] right shoulder [address] tel: joint, [phone] subsequent encounter 2019 - [facility] Primary Separation of TREADWELL S Inc, Care [place] right DANISHA. [facility] -57 [facility] acromioclavicu [address], [place] lar joint, [place] Street, subsequent [place], [place] encounter [address]. [place], tel:[phone], [place] [address] tel: [phone] 0001 - [facility] Chronic kidney Nov- MICHAEL S Inc, Nephrology disease, stage 5-201 [facility]. Leonard 5Hyp chr [address], Sean kidney disease Floor 5, Street, w stage 5 chr [place], [place], [address]. [place], or tel:[phone], [place] ESRDSecondary [address] tel:60 hyperparathyro [phone] idism of renal originAnemia in chronic kidney diseasePersona l history of nicotine dependence 0001 - S Ortho Superior Feb- GALVAN [employer] Inc, Ctr Ortho glenoid labrum 1- JYOTSNA. [facility] 33-57 lesion of 9 [address], Street, shoulder, [place], [place], [place] subsUnspecifie [address]. [place], [place], d sprain of tel:[phone], [place] right shoulder [address] tel: joint, subs [phone] encntrElevated blood-pressure reading, w/o diagnosis of htn 0001 - [facility] Urology Chronic kidney b-0 IOFFE [facility] Inc, disease, stage 8-201 EDWARD. 30 -57 5Erectile 9 [facility], [place] dysfunction [address], Street, due to [facility] diseases [place], [place], classified [address]. [address], [place] elsewhereObstr tel:776 tel:60 uctive [phone] uropathy 0001 - [facility] Primary Essential Nov-0 TREADWELL S Inc, Care [place] hypertensionES 7- DANISHA. [address] (end stage 9 [facility] renal [facility], disease)Chroni [place], [place] c right [address]. [place], shoulder tel:[phone], [place] painHyp chr [address]901 tel: kidney disease [phone] w stage 5 chr kidney disease or ESRDPersonal history of nicotine dependence 0001 - [facility] Primary End stage Castro-2 TREADWELL [employer] Inc, Care [place] renal disease OctE. 507 -57 City 9 [facility], [facility] Street, [place], [place] [address]. [place], tel:[phone], [place] [address] tel: [phone] 0001 - [facility] Ortho Pain in right LOWRIE PRADIP. S Inc, Ctr O Rad shoulderElevat 6- [facility] 4433 33-[address] Sean blood-pressure E, [place], [place], tensed, [place], [address]. [place] diagnosis of tel:[phone] [place], htn [address], [place] tel:[phone] 0001 - S Ortho Right anterior LOWRIE PRADIP. S Inc, Ctr Ortho shoulder pain [facility] 4433 33[address], [place], [place], [address]. [place] tel:[phone] [place], [address], [place] tel:+ [phone] 0001 - S Primary Chronic kidney Oct- TREADWELL S Inc, Care [place] disease, stage 5-201 DANISHA. 507 33-57 City [address], Sean hypertensionHy [place] [address], p chr kidney [facility], [place], [place] [address]. [place], stage 5 chr tel:[phone], [place] kidney disease [address] tel:+60 or ESRD [phone] 0001 - S Ortho Pain in LOWRIE PRADIP. [facility] Inc, Ctr Ortho unspecified 5-201 S 4433 33-[address], [place], [place], [address]. [place] tel:[phone] [place], [address], [place] tel:[phone] 0001 - S Ortho Pain in GALVAN S Inc, Ctr Ortho unspecified - JYOTSNA. [facility] 33-57 shoulder 9 [address], [place], [place], [place] [address]. [place], tel:[phone], [place] [address] tel:[phone] 0001 - S Chronic kidney Oct-0 MICHAEL S Inc, Nephrology disease, stage 3-201 [facility]. 57 5Hyp chr [address], Sean kidney disease Floor 5, Street, w stage 5 chr [place], [place], [address]. [place], or tel:[phone], [place] ESRDUnspecifie [address] tel:+[phone] d [phone] hydronephrosis 0001 - S Primary Separation of TREADWELL [employer] Inc, Care [place] right 7-201 DANISHA. 507 33-57 [facility] acromioclavicu [address], Sean lar joint, [place] Street, sequelaChronic [place], [place] kidney [address]. [place], disease, stage tel:[phone], [place] 5Essential [address] tel:[phone] hypertensionHy [phone] p chr kidney disease w stage 5 chr kidney disease or ESRD 0001 - [facility] Urology Hydronephrosis Nov- IOFFE [facility], , unspecified 0-201 EDWARD. 30 33-57 hydronephrosis 8 [facility] typeChronic [address], Street, kidney [facility] disease, stage [place], [place], [address]. [address], [place] (severe)Testic tel:+[phone] tel:+[phone] ular [phone] painImpotenceI ncomplete bladder emptyingNoctur ia 0001 - [facility] Primary Nov-0 TREADWELL S Inc, Care [place] 1-OctE. 50 33-57 City 8 [facility], [facility] Street, [place], [place] [address]. [place], tel:[phone], [place] [address] tel:[phone] [place] [address] Primary Chronic kidney Oct-2 TREADWELL [facility] Inc, Care [place] disease, stage 6-201 DANISHA. 50 33-57 City 5Erectile 8 [facility], [facility], due to [place], [place] diseases [address]. [place], classified tel:[phone], [place] elsewhereEssen [address] tel:+60 tial [phone] hypertensionHy pertensive chronic kidney disease w stg 1-4/unsp chr kdnyHyp chr kidney disease w stage 5 chr kidney disease or ESRD 0001 - [facility] Walk-In Encounter for Sep-2 JAZMYN [facility] Inc, Center screening for 0-201 YENNI. [address] 33[address]57 [place] other viral 6 [facility] diseasesEncoun [facility], Street, ter for [place], [place], [address]. [place], human tel:[phone], [place] immunodeficien [address] tel:+60 cy virus [phone] 0001 - [facility] Primary Essential Aug-0 PONTICIELLO S Inc, Care (primary) 5-201 SHARIF. 33-57 Gabriel hypertensionCh 6 [address] [place] ronic kidney [address], [place], disease, stage [place], [place], [place] 5Tinea [address]. [place], corporisHypert tel:[phone], [place] ensive chronic [address] tel:+60 kidney disease [phone] w stg 1-4/unsp chr kdnyPersonal history of nicotine dependenceHyp chr kidney disease w stage 5 chr kidney disease or ESRD 0001 - [facility] Chronic kidney Han-1 QUASEM [employer] Inc, Nephrology disease, stage 9-201 [place]. 3357 5FSGS (focal 6 [facility] [address], Street, glomeruloscler [facility] [place], [address]. [place], hypertensionOb tel:[phone], [place] structive [address] tel:+160 uropathyHyp [phone] chr kidney disease w stage 5 chr kidney disease or ESRDPersonal history of nicotine dependence 0001 - [facility] Surgery Arm numbness Calvin-1 [facility], left 0-201 MYRANDA. 30 57 6 [facility], [place], [address], [place], [place], [place], [address], [place] [address]. tel:+60 tel:[phone] 2019 - [facility] Chronic kidney Aclvin-0 [facility], Nephrology disease, stage 9 [place]. 33 5Essential 6 [facility] [address] (primary) [address] Fl 5, Street, hypertensionOb [facility] [place], [address]. [place], uropathyHyp tel:[phone], chr kidney [address] tel:+60 disease w [phone] stage 5 chr kidney disease or ESRDPersonal history of nicotine dependence 0001 - [facility] Walk-In Left arm pain Calvin-0 TOKOS RONAL. [facility] [facility], Center [address], [facility], [place], [address]. [place] tel:[phone] [place], [address], [place] tel:[phone] 0001 - [facility] Primary Essential Mar-2 PONTICIELLO [facility], Care (primary) 8 SHARIF. 57 Gabriel hypertensionCh 6 [address] [place] ronic kidney [facility], [place], disease, stage [place], [facility] 4 [address]. [place], (severe)Hypert tel:[phone], [place] ensive chronic [address] tel: kidney disease [phone] w stg 1-4/unsp chr kdnyNicotine dependence, cigarettes, uncomplicated 0001 - [facility] Chronic kidney Mar-0 [facility], Nephrology disease, stage 3-201 [place]. 33-57 4 6 [facility] [address] (severe)Hypert [address] Fl 5, Street, ensive [place], [address]. [place], CKD stage tel:[phone], [place] IVObstructive [address] tel:60 uropathyFocal [phone] segmental glomeruloscler osisNicotine dependence, cigarettes, uncomplicated 0001 - [facility] Walk-In DysuriaEncount TOKOS RONAL. [facility], Center er for [address]57 Gabriel screening for 6 , [facility] other viral [place], [place], [place], [address]. [place] tel:775 [place], [address], [place] tel: [phone] 0001 - [facility] Primary Other Oct-2 PONTICIELLO S Inc, Care prostatic 7- SHARIF. 33-57 Gabriel inflammatory 6 [address], Street, unguiumEssenLake [facility] al (primary) [address]. [place], hypertensionPe tel:[phone], [place] rsonal history [address] tel: of nicotine [phone] dependence 0001 - [facility] Surgery Chronic kidney LINDA [facility] Inc, disease, stage 3-201 MYRANDA. 30 33-57 5 6 [address] [place], Street, [address], [place], [place], [place], [address], [place] [address]. tel: tel:[phone] 39581 0001 - [facility] Stage 5 Castro-0 [employer], Nephrology chronic kidney 8-201 [place]. 33-57 disease due to 6 [facility] [address], Street, hypertensionCh [place], [address]. [place], disease, stage tel:[phone], [place] 5Obstructive [address] tel:+60 uropathy [phone] 0001 - S Walk-In Gout of big Castro-0 TOKOS RONAL. S Inc, Center toe 7-201 [address], [facility], [facility], [place], [address]. [place] tel:+[phone] [place], [address], [place] tel:[phone] 0001 - S Walk-In TineaHypertens Dec-2 YARDE S Inc, Center ion 3-201 DAVINIA. 33-57 Gabriel [address] [place] [address], [place], [place], [place], [address]. [address], [place] tel:[phone] tel:[phone] 0001 - S Walk-In Dysuria Apr-0 [facility] Inc, Center 9-201 CED. 33-57 [place] 5 [facility]7 [facility], [place], [place], [place], [address]. [address], [place] tel:[phone] tel:[phone] 0001 - S Chronic Kidney Mar-1 S Inc, Nephrology Disease, Stage 2-201 33-57 Leonard IV 5 [place] (severe)[facility] UnspecifiedDis [place], ease, [address], [place] hypertensive tel:+60 renal NOS, w/o [phone] RF 0001 - S Pain in Mar-0 BENTLEY S Inc, Orthopedics shoulder 4-201 KIKI. 93 33-57 [place] 5 [facility], [facility], [place], [facility], [address]. [place], tel:[phone], [place] [address] tel:[phone] 0001 - S Walk-In Urinary Mar-0 YARDE [employer] Inc, Center frequency 1-201 DAVINIA. 33-57 [address] [place] [address], [place], [place], [place], [address]. [address], [place] tel:[phone] tel:[phone] 0001 - [facility] Primary Pain in joint, Fe- PONTICIELLO S Inc, Care shoulder SHARIF. [facility] 5 [address] [facility], Street, [facility] NOS [place], [place], [place] [address]. [place], tel:[phone], [place] [address] tel:[phone] 0001 - [facility] Walk-In Chest pain Dec-0 S Inc, Center [place] 4 [place], [address], [place] tel:[phone] 0001 - [facility] Pain in joint, XIAO ELAINE. S Inc, Orthopedics shoulder 30 [place] 57 [facility] 4 [place] [address], [place], [place], [place], [address]. [address], [place] tel:[phone] tel:[phone] 0001 - S Urology Varix, scrotal Aug- PAREEK S Inc, NATWAR. 30 4 [facility], [place], [address], [place], [place], [address], [place] [address]. tel:+[phone] tel:[phone] 23066 0001 - [facility] Primary Shoulder pain Nov- HORNE S Inc, Care 0 KHUSHBOO. [address] [place] 4 [facility] Center, [facility], [facility], [address]. [place], tel:[phone], [place] [address] tel:[phone] 0001 - Outpatient - Accidental Nov-0 PONTICGlobal Registry of [employer] S Inc, Other - [facility] fall NEC SHARIF. 4 [address] Sean [facility], [place], [facility] [address]. [place], tel:[phone], [place] [address] tel:[phone] 0001 - [facility] Primary Shoulder Oct-3 HORNE S Inc, Care painWrist 1-201 KHUSHBOO. 1302 E 33-57 Gabriel painHypertensi [address], Sean on, essential [facility]HSP[facility], Street, NOSAccidental [facility] [place], [address]. [place], stairs or tel:[phone], [place] steps NEC [address] tel:[phone] 0001 - S Primary Gout Jul-2 PONTICIELLO S Inc, Care NOSChronic 0-201 SHARIF. 33-57 Gabriel renal 4 116 A Sean insufficiencyT [facility], Street, [place], [place] painHypertensi [address]. [facility], [place], on, essential tel:[phone], [place] [address] tel:[phone] 0001 - S Walk-In Testicular Oct-0 [email or web address] S Inc, Center pain 7-201 CHAVA. 33-57 [place] 4 [address] [facility], [facility], [place], [facility], [address]. [place], tel:[phone], [place] [address] tel:[phone] 0001 - S Walk-In Gout NOS Sep-2 ZAJasper S Inc, Center 6-201 CHAVA. 33-57 [place] 4 [address] [facility], [facility], [place], [facility], [address]. [place], tel:[phone], [place] [address] tel:[phone] 0001 - S Walk-In Gout Sep-1 GIANGRIECO S Inc, Center NOSChronic 6-201 MONISHA. 33-57 [place] Kidney 4 [address] [place] [facility], Stage St, Street, IV (severe) [facility], [address]. [place], tel:[phone], [place] [address] tel:[phone] 0001 - [facility] Primary Chronic Kidney February- HORNE S [facility], Care Disease, Stage 3-201 KHUSHBOO. 130[address] 33-57 [place] IV [address], Sean (severe)Erecti SPC, Street, [place], [address]. [place], ertension, tel:[phone], [place] essential NOS [address] tel:[phone] 0001 - S Walk-In UrethritisDisc Referring S [facility], [facility], Provider: Sally Leonard urethral 4 WALKIN [facility], Street, [address] [facility] [address], [place], [place], [place], [address], [place] [address]. tel:+ [phone] 0001 - S Walk-In Dysuria Referring S [facility], [place] Provider: Sally Kaplanicott [address] [facility] [place], [address], [place] tel:[phone] 0001 - [facility] Fx closed [facility][note 3], Orthopedics radius, [place]. [facility] [place] headDislocatio 3 [address] [facility] n [address], [place], acromioclavicu [facility] larWrist [address]. [place], painAftercare, tel:[phone], [place] healing [address] tel:[phone] traumatic fx, [phone] upper armAftercare, healing traumatic fx, lower arm 0001 - [facility] Radial head [facility], Orthopedics fractureAcromi [place]. [facility] 57 [place] oclavicular 3 [address] [facility] [facility] [address], Street, [place], [place], [place] [address]. [place], tel:[phone], [place] [address] tel:[phone] 0001 - S Walk-In LumbagoLumbago Referring S Inc, [place] Accidental Provider: Sally Gabriel fall NECPlace 3 NDWI Sean of occurrence, GABRIEL. Street, [place], [address], [place] tel:[phone] 0001 - [facility] Urology Chronic renal AJIT S Inc, insufficiency 6- AHMED. [facility] -57 2 30 [facility] [address], [place], [place], [place], [place], [address]. [address], [place] tel:[phone] tel:[phone] 0001 - S Walk-In LumbagoLumbago ZARRINI Referring S Inc, Center LumbagoLumbago CHAVA. Provider: Sally [place] 2 [address] [facility], SWIC, GABRIEL. Street, [facility], [address]. [place], tel:[phone], [place] [address] tel:[phone] 0001 - [facility] Urology UPJ May- AJIT S Inc, obstruction, 7 AHMED. [facility] acquired 2 30 [facility] [address], [place], [place], [place], [address]. [address], [place] tel:[phone] tel:[phone] 0001 - [facility] Primary Gout NOSGout May- [facility] Inc, Care NOS 1-201 SHARIF. Gabriel [address], [place], [place], [place] [address]. [place], tel:[phone], [place] [address] tel:[phone] 0001 - [facility] Primary Gout NOS Apr- [facility] Inc, Care 4-201 SHARIF. Gabriel [address], [place], [place] [address]. [place], tel:[phone], [place] [address] tel:[phone] 0001 - S Walk-In Open Apr- WALKER Referring S Inc, Center woundWound 5-201 RADHA. 1302 Provider: Sally Zelaya open, scalp [address], NDWI Sean w/o [place], GABRIEL. [facility], [address]. [facility] nanette, site tel:[phone] [place], N[place] w/o [phone], [place] complicationWo tel:+ und open, site [phone] NOS w/o complication 0001 - S Primary GoutGout NOS Calvin-1 PONTICIELLO S Inc, Care 2-201 SHARIF. Gabriel 2 [address] Jacquese, [place], [place], [place], [place] [address]. [place], tel:[phone], [place] [address] tel:[phone] 0001 - S Primary Gout May-1 PONTICIELLO S Inc, Care NOSHypertensio 6-201 SHARIF. Gabriel n, essential 2 [address] Sean NOSScreening [facility], [place], for viral [place], [place], [place] disease [address]. [place], NECGout tel:[phone], NOSHypertensio [address] tel:+ n, essential [phone] NOS 0001 - S Walk-In Gout NOSGout May-0 WALKER Referring S Inc, Center NOSGout NOS RADHA. 1302 Provider: [place] [address] [facility] [place], [address]. [place] tel:[phone] [place], [address], [place] tel:[phone] 0001 - [facility] Urology Hypertension, Fe- AJIT S Inc, essential NOS 9201 AHMED. [facility] 57 2 30 [facility] [address], Street, [place], [place], [place], [address]. [address], [place] tel:[phone] tel:[phone] 0001 - S Primary Dermatophytosi Nov-1 PONTICIELLO S Inc, Care s, scalp and 8 SHARIF. [place] beardHypertens 1 [address] A Sean ion, essential [facility], [place], NOSDermatitis [place], [place], [place] NECDermatophyt [address]. [place], osis, scalp tel:[phone], [place] and [address] tel:[phone] beardHypertens [phone] ion, essential NOS 0001 - [facility] Primary Dermatophytosi Nov- [facility] Inc, Care s, scalp and SHARIF. 3357 [place] beardHypertens 1 [address] A Sean ion, essential [facility], Street, NOSRetention, [place], [place], [place] urine [address]. [place], NOSChronic tel:[phone], [place] Kidney [address] tel:[phone] Disease, Stage [id number] IV (severe)Dermat ophytosis, scalp and beardHypertens ion, essential NOSRetention, urine NOS 0001 - [facility] Walk-In Urinary Jul- Referring [facility], [place] retentionReten Provider: Sally Gabriel tion, urine 1 NDWI Sean NOS GABRIEL. [place], [place], [address], [place] tel:[phone] 0001 - [facility] Walk-In GoutGout NOS Sep-0 WALKER Referring S [facility], [place] RADHA. 1302 Provider: Sally Gabriel [address], JAYLENE Estrada Gabriel, [place], [address]. [place] tel:[phone] [place], [address], [place] tel: [phone] 0001 - [facility] Primary Tinea Aug- [facility] Referring S [facility], Care capitisCerumen SHARIF. Provider: 33-57 Gabriel impactionDerma 1 116 A SHARIF Estrada tophytosis, [facility], [facility] Street, scalp and [place], [place], , 116 A [place] beardImpacted [address]. [place], [place], cerumen tel:[phone] Av, [address], [place] [address] [place], [place], tel:[phone] tel:[phone] - [facility] Walk-In Urinary Tract LOWRIMiguel MOSELEY. Referring S [facility], Center InfectionUreth S 4433 Provider: 33-57 Gabriel ritis [address] NDWI Sean NECUrethritis E, Leonard, GABRIEL. [place], [place], [address]. [place] NEC tel:[phone] [place], [address], [place] tel:[phone] 0001 - [facility] Walk-In DysuriaDysuria Apr- WALKER Referring [facility], Center 2201 RADHA. 1302 Provider: 33-57 [place] 1 E [facility], NDNH Sean [place], [place], [address]. [place] tel:[phone] [place], [address], [place] tel:[phone] 0001 - [facility] Walk-In Bleeding Calvin- WALK[place] Referring [facility], Center noseEpistaxis RADHA. 1302 Provider: 33-57 Gabriel 1 E [facility], NDISIDRA Estrada Gabriel, [place], [address]. [place] tel:[phone] [place], [address], [place] tel:[phone] 0001 - [facility] Primary Hypertension, Apr-0 [facility] Referring [facility] essential 6 SHARIF. Provider: 33-Hung Zelaya NOSChronic 1 116 A SHARIF Sean Kidney [facility], Disease, Stage [place], [place], , [address] [place] [address]. [place], [place], (severe)Dermat tel:[phone] [facility], [address], [place] itis [place] [address] [place], [place], tel:[phone]. [phone] tel:[phone] - [facility] Walk-In Urethritis Apr-0 LOWRIE PRADIP. Referring [facility], Center NECOrchitis/ep 4-201 [facility] 4433 Provider: 33-57 [place] ididymitis [address] NDNH Sean NOSUrethritis E, Leonard, GABRIEL. Street, NECOrchitis/[place], [address]. [place] ididymitis NOS tel:[phone] [place], [address], [place] tel:[phone] 0001 - [facility] Primary Chronic renal Feb-2 [facility], Care [address] disease, stage 4-201 33-57 [address], ertensionFoot [place], [place], [address], [place] tel:[phone] [facility] - [facility] Primary Calvin- MICHAEL [employer], Care 5-200 FLORY. [place] [address], Sean Floor 5, Street, [place] [facility], [address]. [place], tel:[phone], [place] [address] tel:[phone] [facility] - [facility] Primary Disorder, Calvin- MICHAEL [employer], Care psychosexual 4-200 [facility]. [place] NOSRenal [address], Sean failure, acute Floor 5, Street, NOS [place] [facility], [address]. [place], tel:[phone], [place] [address] tel:[phone] Family History Family Member Diagnosis Age At Onset Brother Alive and well Brother Alive and well Sister Alive and well Sister Alive and well Brother Alive and well Sister Alive and well Father Mother Alive and well Brother Alive and well Father AIDs (Cause Of ) Sister Alive and well Immunizations Vaccine Date Status Comments Hep B, adult, 3 dose administered Source: New Immunization Record Influenza, injectable, pending Source: New Immunization quadrivalent, preservative Record free, split virus Pneumococcal conjugate PCV 13 pending Source: New Immunization Record TDAP (Boostrix or Adacel) pending Source: New Immunization Record Payers Payer name Insurance type Covered constitution party ID Authorization(s) Blake Malik [facility] [place] [id number] [place] He [id number] Social History Type Description Quantity Date Captured Comments Alcohol Use Details Unknown Caffeine Use Details Unknown Tobacco Use Status Unknown Smoking Status Unknown Vital Signs Date / Height Weight BMI Pulse Blood Temperature Respiratory Body Head BMI Time: Rate Pressure Rate Surface Circumference percentile Area Unknown Chief Complaint And Reason For Visit No information Reason For Referral Reason For Referral Unknown Plan Of Care Date Type Action Status Referral Ordered: ordered Physical Therapy (related to Separation of right acromioclavicular joint, subsequent encounter) Referral Referred To: ordered Physical Therapy Ordered: Referrals: Physical Therapy. Evaluate and treat Referral Ordered: ordered MRI upr extr joint, w/o contrast RT shoulder Referral Referred To: ordered Physical Therapy Ordered: Referrals: Physical Therapy. Location: [facility] Director Of Events & Rehab Ves. Evaluate and treat Referral Ordered: ordered Transplant Surgery (related to Chronic kidney disease, stage 5) Referral Ordered: ordered Referrals: Transplant Surgery. Evaluate and treat Appointment date/timeframe: 4 Weeks Referral Ordered: ordered Transplant Surgery AT [facility] Appointment date/timeframe: 4 Weeks Referral Ordered: ordered Referrals: Orthopedic Surgery. Evaluate and treat Appointment date/timeframe: 10/20/2018 Referral Ordered: ordered CT Abdomen & Pelvis w/o Contrast Appointment date/timeframe: 10/05/2018 Referral Ordered: ordered U/S Arterial Duplex upper extremity unilateral specify side Left Appointment date/timeframe: Stat Referral Ordered: ordered U/S Vascular Vein Mapping Hemodialysis Appointment date/timeframe: Today Referral Referred To: ordered JOHAN ALMENDAREZ [address], [address] [phone] Ordered: Vascular Surgery REFERRAL WITH JOHAN ALMENDAREZ AT [facility] Surgery - Vascular Appointment date/timeframe: 1 Month Referral Ordered: ordered . Ortho Surg. Appointment date/timeframe: 2014 Referral Ordered: ordered . Cardiology/Leonard. Appointment date/timeframe: 01/02/2015 Referral Ordered: ordered . Ortho Surg. Consult and treat. Appointment date/timeframe: 09/03/2014 Referral Ordered: ordered Xray Humerus (Must choose side) Left Referral Ordered: ordered MRI upr extr joint, w/o contrast Right shoulder Appointment date/timeframe: 08/16/2014 Referral Ordered: ordered . Urology. Referral Ordered: ordered . Nephrology. Consult and treat. Appointment date/timeframe: 04/25/2014 Referral Ordered: ordered MRI upr extr joint, w/o contrast Right wrist Referral Ordered: ordered Arthrogram, Upper Extremity Right wrist Referral Ordered: ordered Xray Elbow 2 views (Must choose side) Right elbow Referral Ordered: ordered Xray Spine Lumbar complete Referral Ordered: ordered . Physical Therapy. Evaluate patient, develop plan and implement plan. Referral Ordered: ordered . Rheumatology. Referral Ordered: ordered . Dermatology. Referral Ordered: ordered . Nephrology. Referral Referred To: ordered FLORY RODRIGUEZ [address] [place], [address] [phone] Ordered: FLORY RODRIGUEZ. Nephrology. Consult and treat. Appointment date/timeframe: 12/29/2010 Referral Referred To: ordered MARTY CAMACHO [facility] [address] [place], [address] [phone] Ordered: MARTY CAMACHO. Urology. Consult and treat. Appointment date/timeframe: 12/16/2010 Unknown Immunization Influenza, injectable, quadrivalent, preservative ordered free, split virus Unknown Immunization Pneumococcal conjugate PCV 13 ordered Unknown Immunization TDAP (Boostrix or Adacel) ordered Date Type Problem Goal Intervention Status Start Date Unknown History Of Present Illness Encounter Date Complaint History Of Present Illness No information Functional Status Encounter Date Functional Assessment Cognitive Assessment Unknown Medications Administered Medication Instructions Dosage Effective Dates (start - stop) Status Comments Drug Treatment Unknown Instructions Date Instruction Additional Information You do not have a UTI today. Please Related to Chronic right shoulder pain call your urologist to talk about your scrotal pain, also call your orthopaedic surgeon for your shoulder. I have sent your medication to your preferred pharmacy. Please let us know if you need anything else I have called your kidney doctor, Related to Chronic kidney disease, they will be reaching out to you to stage 5 set up an appointment to ensure from his stand point you are ok for surgery. If he is ok with you going for surgery we will follow recommendation.Your blood pressure also needs to be under better control so I have refilled your hydralazine and you need to be taking that and the cardizem to have better blood pressure control. Right now it is too high and if it doesn't improve for surgery you will not be able to have it Please take medication: Cardizem Related to Essential hypertension twice a dayHydralazine 3 times a day you can try to set alarms on your phone to remember! please try to take all your medications before coming to see me next (and Dr flores) so we know what your blood pressure looks like. Please follow up with Dr Flores Related to ESRD (end stage renal on Tuesday. Please talk to him about disease) the headache you are getting from blood pressure medications. Also let him know about [place] putting you on uloric. Filled out your form, please come Related to Chronic kidney disease, and see me in 1 month or earlier if stage 5 needed Please take your medication as soon Related to Essential hypertension as you get home!! and make sure to take it three times a day (morning, noon, and night) Please follow up with Dr Flores, Related to Essential hypertension I would not like to change medications before he sees you. Please see Dr Flores! We need to Related to Chronic kidney disease, know what he would like to do about stage 5 your blood pressure, as well as what he is thinking about your kidneys. I have sent in apt for Related to Separation of right Orthopaedics, they will call you acromioclavicular joint, sequela with date and time rx sent Related to Erectile dysfunction due to diseases classified elsewhere See above Related to Essential hypertension Please start taking 2 of your Related to Chronic kidney disease, Diltiazem a day, We will see how stage 5 this effects your blood pressure at your apt with Dr Flores, He will continue to adjust your medications. continue lwo protein diet. Please have labs done, please follow up with me after your apts with specialists so we can follow up on their plan. Schedule apt in 1 month. HIV testing is non-reactive in the Related to Encounter for screening for office. Thank you for choosing the other viral diseases [facility] Walk [facility]. We hope that you will be feeling better soon.Any condition can change and some diseases may worsen despite proper treatment. Other problems may begin with vague or unusual symptoms and only over time will the problem become more clear, making it possible to arrive at the correct diagnosis. Your visit today is not a substitute for, or an effort to provide complete medical care. In most cases, you should let your primary care doctor check you again. Tell your doctor about any new or lasting problems. If you do not have a primary care provider, you have been given a list today of local providers who are accepting new patients. All x-rays are interpreted by a radiologist, usually within 48 hours. If there is any important difference between the radiologist's interpretation and what you were told today by the provider, you will be notified. If you had cultures done today, results will be available in 72 hours, depending on specimen. Continue care of specialist Related to Chronic kidney disease, stage 5 Use cream Related to Tinea corporis Resume cardizem and hydralazine, Related to Essential (primary) home BP cuff ordered, return in 1 hypertension week on meds stat left arterial to rule out Related to Arm numbness left ischemia due to worsening pain of left arm Related to Left arm pain it is recommended to seek Er attention for further evaluation ?cellulitis, gout, clot?an ambulance has been called as you do not have transportation - Thank you for choosing the [facility] Walk In. We hope that you will be feeling better soon.Any condition can change and some diseases may worsen despite proper treatment. Other problems may begin with vague or unusual symptoms and only over time will the problem become more clear, making it possible to arrive at the correct diagnosis. Your visit today is not a substitute for, or an effort to provide complete medical care. In most cases, you should let your primary care doctor check you again. Tell your doctor about any new or lasting problems. If you do not have a primary care provider, you have been given a list today of local providers who are accepting new patients. All x-rays are interpreted by a radiologist, usually within 48 hours. If there is any important difference between the radiologist's interpretation and what you were told today by the provider, you will be notified. If you had cultures done today, the results will be available in 72 hours, depending on the specimen. Continue cardizem 120mg 2 x daily, Related to Essential (primary) your BP is high, but I am hesitant hypertension to give you anything else due to your kidney functions decreasing Continue care of marketing research coordinator, Related to Chronic kidney disease, fistula site healing well stage 4 (severe) Avoid sexual intercourse until Related to Dysuria cultures return.For future encounters pelase have safe sex.Follow up with primary doctor, urologist, and marketing research coordinator - Thank you for choosing the [facility] Walk In. We hope that you will be feeling better soon.Any condition can change and some diseases may worsen despite proper treatment. Other problems may begin with vague or unusual symptoms and only over time will the problem become more clear, making it possible to arrive at the correct diagnosis. Your visit today is not a substitute for, or an effort to provide complete medical care. In most cases, you should let your primary care doctor check you again. Tell your doctor about any new or lasting problems. If you do not have a primary care provider, you have been given a list today of local providers who are accepting new patients. All x-rays are interpreted by a radiologist, usually within 48 hours. If there is any important difference between the radiologist's interpretation and what you were told today by the provider, you will be notified. If you had cultures done today, the results will be available in 72 hours, depending on the specimen. UNcontrolled, take medication, Related to Essential (primary) increase morning dose, continue pm hypertension dose take antibiotic fully, follow up Related to Other prostatic with marketing research coordinator, and urologist as inflammatory diseases scheduled Cream faxed Related to Tinea unguium Patient scheduled for left AVF Related to Chronic kidney disease, creation with Dr. Almendarez. Vein stage 5 mapping ordered see educational handouttake Related to Gout of big toe medication as directed - Thank you for choosing the [facility] Walk In. We hope that you will be feeling better soon.Any condition can change and some diseases may worsen despite proper treatment. Other problems may begin with vague or unusual symptoms and only over time will the problem become more clear, making it possible to arrive at the correct diagnosis. Your visit today is not a substitute for, or an effort to provide complete medical care. In most cases, you should let your primary care doctor check you again. Tell your doctor about any new or lasting problems. If you do not have a primary care provider, you have been given a list today of local providers who are accepting new patients. All x-rays are interpreted by a radiologist, usually within 48 hours. If there is any important difference between the radiologist's interpretation and what you were told today by the provider, you will be notified. If you had cultures done today, the results will be available in 72 hours, depending on the specimen. Use medication as directed. Avoid Related to Tinea over-drying skin. No scratching, use mild moisturizing soaps such as olay or dove. Take lukewarm showers. Use moisturizing creams such as aquaphor, cetaphil or [employer]. Follow-up with your primary doctor within 2 weeks for recheck. Please monitor your blood Related to Hypertension pressure, stop into a pharmacy and check it daily, record readings. Low salt diet, increase fruits, vegetables in your diet. If you develop chest pain, SOB, vision changes, numbness or weakness in extremities please go to ER. Thank you for choosing the [facility]. We hope that you will be feeling better soon.Any condition can change and some diseases may worsen despite proper treatment. Other problems may begin with vague or unusual symptoms and only over time will the problem become more clear, making it possible to arrive at the correct diagnosis. Your visit today is not a substitute for, or an effort to provide complete medical care. In most cases, you should let your primary care doctor check you again. Tell your doctor about any new or lasting problems. If you do not have a primary care provider, you have been given a list today of local providers who are accepting new patients. All x-rays are interpreted by a radiologist, usually within 48 hours. If there is any important difference between the radiologist's interpretation and what you were told today by the provider, you will be notified. If you had cultures done today, the results will be available in 72 hours, depending on the specimen. Please take new medication as Related to Dysuria directed. Drink plenty of fluids. We will call with results of urine testing in 2-3 days. Thank you for choosing a [facility]. We hope and expect that you will be feeling better soon.Any condition can change and some diseases may worsen despite proper treatment. Other problems may begin with vague or unusual symptoms and only over time will the problem become more clear, making it possible to arrive at the correct diagnosis. Your visit today is not a substitute for, or an effort to provide complete medical care. In most cases, you should let your primary care doctor check you again. Tell your doctor about any new or lasting problems. If you do not have a primary care provider, you have been given a list today of local providers who are accepting new patients. All x-rays are interpreted by a radiologist, usually within 48 hours. If there is any important difference between the radiologist's interpretation and what you were told today by the provider, you will be notified. If you had cultures done today, the results will generally be available within 2-3 days. I explained the diagnosis to the Related to Pain in shoulder patient, including common signs and symptoms, natural course, prognostic factors and treatment options, surgical vs non-surgical. After discussion we agreed upon the following treatment plan:- A course of physical therapy, focusing on modalities to decrease inflammation and pain, improve painless range of motion, endurance and function ([facility] PT Gabriel, java front end web developer to schedule).- He is not interested in discussing surgical options at this time, but understands this consultation could be requested in the future if conservative treatment fails and is in agreement with that.- Follow up scheduled in 8 weeks. To consider corticosteroid injection(s) and/or surgical consult if symptoms worsen or fail to improve. The patient was advised and encouraged to call the office with any questions or concerns. U/A has protein, no leukocytes or Related to Urinary frequency blood, will send for culture. Will also send urine for gonorrhea and chlamydia, call office in two days for results. Please follow up with PCP this week, any new or worsening of symptoms go to ER. Thank you for choosing the [facility]. We hope that you will be feeling better soon.Any condition can change and some diseases may worsen despite proper treatment. Other problems may begin with vague or unusual symptoms and only over time will the problem become more clear, making it possible to arrive at the correct diagnosis. Your visit today is not a substitute for, or an effort to provide complete medical care. In most cases, you should let your primary care doctor check you again. Tell your doctor about any new or lasting problems. If you do not have a primary care provider, you have been given a list today of local providers who are accepting new patients. All x-rays are interpreted by a radiologist, usually within 48 hours. If there is any important difference between the radiologist's interpretation and what you were told today by the provider, you will be notified. If you had cultures done today, the results will be available in 72 hours, depending on the specimen. 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 We hope that you will be feeling better soon. Any condition can change and some diseases may worsen despite treatment. Other problems may begin with vague or unusual symptoms and only over time will the problem become more clear, making it possible to arrive at the correct diagnosis. Your visit today is not a substitute for, or an effort to provide complete medical care. In most cases, you should let your primary care doctor check you again. Tell your doctor about any new or lasting problems. If you do not have a primary care provider, ask at the java front end web developer for a list of local providers who are accepting new patients. X-rays are interpreted by a radiologist, usually within 48 hours. If there is any important difference between the radiologist's interpretation and what you were told today by the provider, you will be notified. If you had cultures done today, the results will be available in 72 hours, depending on the specimen. Referral to urology Related to Testicular pain High today, but you missed your Related to Hypertension, essential NOS pill today. 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 prednisone for 7 days , vicodin for pain f/u with your pcp in one week. Thank you for choosing the Related to Chronic Kidney Disease, [place] Stage IV (severe) Walk In. We hope and expect that you will be feeling better soon.Any condition can change and some diseases may worsen despite proper treatment. Other problems may begin with vague or unusual symptoms and only over time will the problem become more clear, making it possible to arrive at the correct diagnosis. Your visit today is not a substitute for, or an effort to provide complete medical care. In most cases, you should let your primary care doctor check you again. Tell your doctor about any new or lasting problems. If you do not have a primary care provider, you have been given a list today of local providers who are accepting new patients. All x-rays are interpreted by a radiologist, usually within 48 hours. If there is any important difference between the radiologist's interpretation and what you were told today by the provider, you will be notified. If you had cultures done today, the results will generally be availab
--- OUTSIDE RECORDS SUMMARY | 2020-01-06 15:47 | XMS REPORT | Continuity of Care Document ---
:1975 Author Organization 0001 - [employer] Address [address] [place] [address] Phone Care Team Providers Name Role Phone JYOTSNA GALVAN MD Unavailable Unavailable Allergies, Adverse Reactions, Alerts Substance Reaction Status Substance Type Unknown WARNIN allergy(ies) could not be collected because the type is not supported. Please contact [facility] for further details. Medications Medication Instructions Dosage [...] For Visit Copied on Encounter 0001 - [facility] Ortho Superior MANDY [employer], Ctr Ortho glenoid labrum JYOTSNA. [facility] 3357 lesion of 0 [address], Street, shoulder, [place], [place], [place] subsOther [address]. [place], [facility] tel:[phone], [place] painOther [address] tel:[phone] articular [phone] cartilage disorders, right shoulderElevat ed blood-pressure reading, w/o diagnosis of htnIncomplete rotatr-cuff tear/ruptr of r shoulder, not trauma 0001 - S Ortho Superior ISABELLA MOSELEY. [employer] Inc, Ctr Ortho glenoid labrum [facility] 4433 33[address] lesion of [address] Sean right E, Leonard, [place], [place], [place], [address]. [place] tel:[phone] [place], [address], [place] tel:[phone] 0001 - Physician JONATHAN S Inc, Services DIANA. [facility] [address], [facility], Street, [place], [place], [place], [address]. [address], [place] tel:[phone] tel:[phone] 0001 - [facility] Primary Chronic right Castro- TREADWELL S Inc, Care [place] shoulder OctE. [address] [place] [address] painOther 0 [facility], [place] chronic [facility], painDysuriaEre [place], [place] ctile [address]. [place], dysfunction, tel:[phone], [place] unspecified [address] tel:+60 erectile [phone] dysfunction type 0001 - [facility] Primary Oct- TREADWELL S Inc, Care [place] OctE. [address] [place] [address], [facility], [place], [place] [address]. [place], tel:[phone], [place] [address] tel:[phone] 0001 - [facility] Primary Nov- AMELIA GRACE. [facility], Care [place] 1- [address] [place] [address] 9 [place], [place], Street, [address]. [place] tel:[phone] [place], [address], [place] tel:[phone] 0001 - [facility] Chronic kidney Sep-1 MICHAEL [facility], Nephrology disease, stage 9-201 [facility]. 5Hyp chr [address], [place] kidney disease Floor 5, Street, w stage 5 chr [place], [place], [address]. [place], or tel:[phone], [place] ESRDSecondary [address] tel:+60 hyperparathyro [phone] idism of renal originAnemia in chronic kidney diseaseUnspeci fied hydronephrosis Personal history of nicotine dependence 0001 - [facility] Primary Chronic kidney Sep-1 AMELIA GRACE. S Inc, Care [place] disease, stage 8-[address] [place] [address] 5Hypertension 9 [facility] secondary to [place], [place], Street, other renal [address]. [place] disordersOther tel:[phone] [place], specified [address], [place] disorders of tel:+60 kidney and [phone] ureterPre-op evaluationSupe rior glenoid labrum lesion of right shoulder, subs 0001 - [facility] Primary Encounter for BAKARI S Inc, Care [place] immunization SHARIF. [address], Sean [facility], Street, [place], [place], [place], [address]. [address], [place] tel:[phone] tel: [phone] 0001 - S Ortho Superior Calvin-0 GALVAN S Inc, Ctr Ortho glenoid labrum JYOTSNA. [facility] - lesion of 9 4433 [facility] right [address], Street, [facility], [place], [place], [place] subsOther [address]. [place], sprain of tel:[phone], [place] right shoulder [address] tel: joint, [phone] subsequent encounter 2019 - [facility] Primary Separation of TREADWELL S Inc, Care [place] right DANISHA. [facility] -57 [facility] acromioclavicu [address], [place] lar joint, [place] Street, subsequent [place], [place] encounter [address]. [place], tel:[phone], [place] [address] tel: [phone] 0001 - [facility] Chronic kidney Nov- MICHAEL S Inc, Nephrology disease, stage 5-201 [facility]. [address] 5Hyp chr [address], [place] kidney disease Floor 5, [place], w stage 5 chr [place], [place], [address]. [place], or tel:[phone], [place] ESRDSecondary [address] tel:60 hyperparathyro [phone] idism of renal originAnemia in chronic kidney diseasePersona l history of nicotine dependence 0001 - S Ortho Superior Feb- GALVAN [employer] Inc, Ctr Ortho glenoid labrum - JYOTSNA. [facility] 33-57 lesion of 9 [address], Street, shoulder, [place], [place] subsUnspecifie [address]. [facility], [place], d sprain of tel:[phone], [place] right shoulder [address] tel: joint, subs [phone] encntrElevated blood-pressure reading, w/o diagnosis of htn 0001 - [facility] Urology Chronic kidney b-0 IOFFE S Inc, disease, stage 8-201 EDWARD. 30 [address], [place] dysfunction [address], Street, due to [facility] diseases [place], [place], classified [address]. [address], [place] elsewhereObstr tel:776 tel: uctive [phone] uropathy 0001 - [facility] Primary Essential Nov-0 [facility] Inc, Care [place] hypertensionES 7-OctE. [address] (end stage 9 [facility], [place] renal [facility], disease)Chroni [place], [place] c right [address]. [place], shoulder tel:[phone], [place] painHyp chr [address]97 tel: kidney disease [phone] w stage 5 chr kidney disease or ESRDPersonal history of nicotine dependence 0001 - [facility] Primary End stage Oct- TREADWELL [employer] Inc, Care [place] renal disease OctE. 507 [address] 9 [facility], [place] [address], [place], [place] [address]. [place], tel:[phone], [place] [address] tel: [phone] 0001 - [facility] Ortho Pain in right LOWRIE PRADIP. [employer] Inc, Ctr O Rad shoulderElevat [facility] [address] Sean blood-pressure E, [place], [place], [place], [place], [address]. [place] diagnosis of tel:+ [place], [place] [address], [place] tel:+ [phone] 0001 - S Ortho Right anterior LOWRIE PRADIP. [employer] Inc, Ctr Ortho shoulder pain [facility] 4433 [address] Sean [address], [place], [place], [address]. [place] tel:+[phone] [place], [address], [place] tel:+ [phone] 0001 - S Primary Chronic kidney Oct- TREADWELL S Inc, Care [place] disease, stage 5-201 DANISHA. 507 33[address], Sean hypertensionHy [place] [address], p chr kidney [place], [place] [address]. [place], stage 5 chr tel:[phone], [place] kidney disease [address] tel:+60 or ESRD [phone] 0001 - S Ortho Pain in LOWRIE PRADIP. S Inc, Ctr Ortho unspecified - S 4433 33[address], [place], [place], [address]. [place] tel:[phone] [place], [address], [place] tel:[phone] 0001 - S Ortho Pain in GALVAN [facility] Inc, Ctr Ortho unspecified JYOTSNA. [facility] 33-57 shoulder 9 [address], [place], [place] [address]. [place], tel:[phone], [place] [address] tel:[phone] 0001 - S Chronic kidney Oct- MICHAEL S Inc, Nephrology disease, stage 3-201 [facility]. 5Hyp chr [address], Sean kidney disease Floor 5, [place], w stage 5 chr [place], [place], [address]. [facility], [place], or tel:[phone], [place] ESRDUnspecifie [address] tel:[phone] hydronephrosis 0001 - S Primary Separation of Dec- TREADWELL [employer] Inc, Care [place] right 7-201 DANISHA. 507 33-57 [facility] acromioclavicu [address], [place] lar joint, Dav[place] Street, sequelaChronic [place], [place] kidney [address]. [place], disease, stage tel:[phone], [place] 5Essential [address] tel:[phone] hypertensionHy [phone] p chr kidney disease w stage 5 chr kidney disease or ESRD 0001 - S Urology Hydronephrosis Aug- IOFFE S Inc, , unspecified 0-201 EDWARD. 30 33-57 hydronephrosis 8 [facility], [place] typeChronic [address], Street, kidney [facility] disease, stage [place], [place], 4 [address]. [address], [place] (severe)Testic tel:+[phone] tel:+160 ular [phone] painImpotenceI ncomplete bladder emptyingNoctur ia 0001 - [facility] Primary Nov-0 TREADWELL S Inc, Care [place] 1-201 DANISHA. 50 33-57 City 8 [facility], [facility] [address], [place], [place] [address]. [place], tel:[phone], [place] [address] tel:[phone] 0001 [facility] Primary Chronic kidney Oct-2 TREADWELL [facility], Care [place] disease, stage 6-201 DANISHA. 507 33-57 City 5Erectile 8 [facility], [facility], due to [place], [place] diseases [address]. [place], classified tel:[phone], [place] elsewhereEssen [address] tel:+60 tial [phone] hypertensionHy pertensive chronic kidney disease w stg 1-4/unsp chr kdnyHyp chr kidney disease w stage 5 chr kidney disease or ESRD 0001 - [facility] Walk-In Encounter for Sep-2 JAZMYN [facility] Inc, Center screening for 0-201 YENNI. 1302 E 33-57 Gabriel other viral 6 [facility], Street, ter for [place], [place], [address]. [place], human tel:[phone], [place] immunodeficien [address] tel:+160 cy virus [phone] 0001 - [facility] Primary Essential Aug-0 PONTICIELLO [facility] Inc, Care (primary) 5-201 SHARIF. 33-57 [place] hypertensionCh 6 [address] [place] ronic kidney [address], [place], disease, stage [place], [place] 5Tinea [address]. [place], corporisHypert tel:[phone], [place] ensive chronic [address] tel:+[phone] kidney disease [phone] w stg 1-4/unsp chr kdnyPersonal history of nicotine dependenceHyp chr kidney disease w stage 5 chr kidney disease or ESRD 0001 - [facility] Chronic kidney Han- QUASEM [employer] [facility], Nephrology disease, stage 9-201 [place]. 3357 5FSGS (focal 6 [facility] [address], Street, glomeruloscler [facility] [place], [address]. [place], hypertensionOb tel:[phone], [place] structive [address] tel:+60 uropathyHyp [phone] chr kidney disease w stage 5 chr kidney disease or ESRDPersonal history of nicotine dependence 0001 - [facility] Surgery Arm numbness Calvin-1 [facility], left 0-201 MYRANDA. 30 57 6 Pending Sale To [facility], [place], [address], [place], [place], [place], [address], [place] [address]. tel:+60 tel:[phone] 04871 0001 - [facility] Chronic kidney Calvin-0 ElastifileMID MISS[facility] MENTAL HEALTH CENTERPersonics Labs [facility], Nephrology disease, stage 9 [place]. 33 5Essential 6 [facility] [address] (primary) Ave Fl 5, Street, hypertensionOb [facility] [place], [address]. [place], uropathyHyp tel:[phone], [place] chr kidney [address] tel:+60 disease w [phone] stage 5 chr kidney disease or ESRDPersonal history of nicotine dependence 0001 - [facility] Walk-In Left arm pain Calvin-0 TOKOS RONAL. [facility], Center 6 [address] [place] [address], [facility], [place], [address]. [place] tel:[phone] [place], [address], [place] tel:[phone] 0001 - [facility] Primary Essential Mar-2 PONTICIELLO [facility], Care (primary) SHARIF. 57 [place] hypertensionCh 6 [address] [place] ronic kidney [address], Street, disease, stage [place], [facility] 4 [address]. [place], (severe)Hypert tel:[phone], [place] ensive chronic [address] tel:+[phone] kidney disease [phone] w stg 1-4/unsp chr kdnyNicotine dependence, cigarettes, uncomplicated 0001 - [facility] Chronic kidney Mar-0 [facility], Nephrology disease, stage 3-201 [place]. 33-57 4 6 S [address] (severe)Hypert Ave Fl 5, Street, ensive [place], [address]. [place], CKD stage tel:[phone], [place] IVObstructive [address] tel:+60 uropathyFocal [phone] segmental glomeruloscler osisNicotine dependence, cigarettes, uncomplicated 0001 - [facility] Walk-In DysuriaEncount TOKOS RONAL. [facility], Center er for [address] 33[address]57 Gabriel screening for , [facility] other viral [place], [place], [address]. [place] tel:[phone] [place], [address], [place] tel: [phone] 0001 - [facility] Primary Other PONTICIELLO S Inc, Care prostatic SHARIF. 33-57 [place] inflammatory 6 [address] diseasesTinea [address], Street, unguiumEssenti [place], [place] al (primary) [address]. [place], hypertensionPe tel:[phone], [place] rsonal history [address] tel: of nicotine [phone] dependence 0001 - [facility] Surgery Chronic kidney [facility], disease, stage 3-201 MYRANDA. 30 33-57 5 6 Sean [address] [place], Street, [address], [place], [place], [place], [address], [place] [address]. tel:+ tel:[phone] 72575 0001 - [facility] Stage 5 Castro-0 4LessMID MISSOU[facility] MENTAL HEALTH CENTERSmartHabitat, Nephrology chronic kidney 8-201 [place]. 33-57 disease due to 6 [facility] [address], Street, hypertensionCh [place], [address]. [place], disease, stage tel:[phone], [place] 5Obstructive [address] tel:+160 uropathy [phone] 0001 - S Walk-In Gout of big Castro-0 TOKOS RONAL. S Inc, Center toe 7-201 [address], [facility], [facility], [place], [address]. [place] tel:[phone] [place], [address], [place] tel:[phone] 0001 - S Walk-In TineaHypertens Dec-2 YAE S Inc, Center ion 3-201 DAVINIA. 33-57 [place] [address] [place] [address], [place], [place], [place], [address]. [address], [place] tel:[phone] tel:[phone] 0001 - S Walk-In Dysuria Apr-0 [facility] Inc, Center 9-201 CED[address] 33-[address] [facility]7 [facility], [place], [place], [place], [address]. [address], [place] tel:[phone] tel:[phone] 0001 - S Chronic Kidney Mar-1 S Inc, Nephrology Disease, Stage 2-201 33-57 Leonard IV 5 [place] (severe)[facility] UnspecifiedDis [place], [place], [address], [place] hypertensive tel:+60 renal NOS, w/o [phone] RF 0001 - S Pain in Mar-0 BENTLEY S Inc, Orthopedics shoulder 4-201 KIKI. 93 33-57 [place] 5 [facility], [facility], [facility], [address]. [place], tel:[phone], [place] [address] tel:[phone] 0001 - S Walk-In Urinary Mar-0 [facility] [employer] Inc, Center frequency 1-201 DAVINIA. 33-57 Gabriel 5 4417 [facility], [place], [place], [place], [address]. [address], [place] tel:[phone] tel:[phone] 0001 - [facility] Primary Pain in joint, Fe- PONTICIELLO S Inc, Care shoulder SHARIF. [facility] 5 [address] [facility], Street, [place], [place], [place] [address]. [place], tel:[phone], [place] [address] tel:[phone] 0001 - [facility] Walk-In Chest pain Dec-0 S Inc, Center [place] 4 [place], [address], [place] tel:[phone] 0001 - [facility] Pain in joint, XIAO ELAINE. S Inc, Orthopedics shoulder [address] [place] [address] [facility] 4 [place], [place] [address], [place], [place], [place], [address]. [address], [place] tel:[phone] tel:[phone] 0001 - S Urology Varix, scrotal Aug- PAREEK S Inc, NATWAR. 30 4 Pending [facility], [place], [address], [place], [place], [place], [address], [place] [address]. tel:+60 tel:[phone] [phone] - [facility] Primary Shoulder pain Aug- HORNE S Inc, Care 0 KHUSHBOO. [address] [place] 4 [facility], Street, [facility], [address]. [place], tel:[phone], [place] [address] tel:[phone] 0001 - Outpatient - Accidental Nov-0 [employer] S Inc, Other - [facility] fall NEC SHARIF. 4 [address] A Sean DuttaIntermountain Healthcare, [place], [place], [place] [address]. [place], tel:[phone], [place] [address] tel:[phone] 0001 - [facility] Primary Shoulder Jul- [facility] Inc, Care painWrist 1-201 KHUSHBOO. 1302 E 33-57 [place] painHypertensi [address], Sean on, essential SP, Street, NOSAccidental [facility] [place], [address]. [place], stairs or tel:[phone], [place] steps NEC [address] tel:[phone] 0001 - S Primary Gout Oct-2 PONTICIELLO S Inc, Care NOSChronic 0-201 SHARIF. 33-57 Gabriel renal [address] [place] [address], Street, esticular [place], [place] painHypertensi [address]. [facility], [place], on, essential tel:[phone], [place] NOS [address] tel:[phone] 0001 - S Walk-In Testicular Oct-0 ZARRINI S Inc, Center pain 7-201 CHAVA. -57 [place] 4 [address] [facility], [facility], [place], [facility], [address]. [place], tel:[phone], [place] [address] tel:[phone] 0001 - S Walk-In Gout NOS Sep-2 ZARRINI S Inc, Center 6-201 CHAVA. - Gbariel 4 [address] [facility], [facility], [place], [facility], [address]. [place], tel:[phone], [place] [address] tel:[phone] 0001 - S Walk-In Gout Sep-1 GIANGRIECO S Inc, Center NOSChronic 6-201 MONISHA. 33-57 Gabriel Kidney 4 [address] [place] Disease, Stage St, Street, IV (severe) [facility], [address]. [place], tel:[phone], [place] [address] tel:[phone] 0001 - [facility] Primary Chronic Kidney May-2 HORNE S Inc, Care Disease, Stage 3-201 KHUSHBOO. 1302 E 33-57 [place] IV [address], Sean (severe)Erecti [facility], [facility] [place], [address]. [place], ertension, tel:[phone], [place] essential NOS [address] tel:+ [phone] 0001 - S Walk-In UrethritisDisc Referring [facility], [facility], Provider: Sally Leonard urethral 4 WALKIN [facility], [place], [address] [facility] [address], [place], [address], [place] [address]. tel:[phone] 0001 - S Walk-In Dysuria Referring [facility], [place] Provider: Sally Zelaya 4 NDWI [facility] [place], [address], [place] tel:[phone] 0001 - [facility] Fx closed [facility], Orthopedics radius, GLEN. [facility] 57 [place] headDislocatio 3 4433 [facility] n closed Pkw[address] E, [place], acromioclavicu [place], [place] larWrist [address]. [place], painAftercare, tel:[phone], [place] healing [address] tel:+60 traumatic fx, [phone] upper armAftercare, healing traumatic fx, lower arm 0001 - [facility] Radial head [facility], Orthopedics fractureAcromi GLEN. [facility] [place] oclavicular 3 [address] [facility] [address], Street, [place], [place], [place] [address]. [place], tel:[phone], [place] [address] tel:[phone] 0001 - S Walk-In LumbagoLumbago Referring S [facility] [place] Accidental Provider: Sally Zelaya fall NECPlace 3 NDWI Sean of [facility], GABRIEL. Street, [place], [address], [place] tel:+ [phone] 2019 - [facility] Urology Chronic renal AJIT [facility], insufficiency 6- AHMED. [facility] 57 2 30 [facility] [address], [address], [place], [place], [place], [address]. [address], [place] tel:[phone] tel:[phone] 0001 - S Walk-In LumbagoLumbago ZARRINI Referring S Inc, Center LumbagoLumbago 9 CHAVA. Provider: Kori-Hung Gabriel 2 [address] [facility], SWIC, GABRIEL. Street, [facility], [address]. [place], tel:[phone], [place] [address] tel:[phone] 0001 - [facility] Urology UPJ May- AJIT S Inc, obstruction, 7 AHMED. [facility] acquired 2 30 [facility] [address], [place], [place], [place], [address]. [address], [place] tel:[phone] tel:[phone] 0001 - [facility] Primary Gout NOSGout May- PONTICIELLO S Inc, Care NOS 1- SHARIF. Gabriel 2 [address], [place], [place], [place] [address]. [place], tel:[phone], [place] [address] tel:[phone] 0001 - S Primary Gout NOS Apr- PONTICIELLO S Inc, Care 4- SHARIF. Gabriel 2 [address] [place], [place], [place], [place] [address]. [place], tel:[phone], [place] [address] tel:[phone] 0001 - S Walk-In Open Apr- WALKER Referring S Inc, Center woundWound 5 RADHA. 1302 Provider: Sally Zelaya open, scalp [address], [facility] w/o [place], GABRI[address]. Street, [facility], [address]. [place] und nanette, site tel:[phone] [place], NOS w/o [phone], [place] complicationWo tel:+ und open, site [phone] NOS w/o complication 0001 - S Primary GoutGout NOS Calvin-1 PONTICOHIOHE[facility] H[facility]ALL[facility] S Inc, Care 2-201 SHARIF. [place] 2 [address], [place], [place], [place] [address]. [place], [place], tel:[phone], [place] [address] tel:+ [phone] 0001 - S Primary Gout May- PONTICOHIOHEALTH P[facility] H[facility]ITALLO S Inc, Care NOSHypertensio 6-201 SHARIF. Gabriel n, essential 2 [address] Sean NOSScreening [facility], [place], for viral [place], [place], [place] disease [address]. [place], NECGout tel:[phone], NOSHypertensio [address] tel:+ n, essential [phone] NOS 0001 - S Walk-In Gout NOSGout February-0 WALKER Referring S Inc, Center NOSGout NOS RADHA. 1302 Provider: Gabriel 2 E [facility] [place], [place], [address]. Kirvin tel:+[phone] [place], [address], [place] tel:[phone] 0001 - [facility] Urology Hypertension, Nov- AJIT S Inc, essential NOS 9201 AHMED. [facility] 57 2 30 [facility] [address], [place], [place], [place], [place], [address]. [address], [place] tel:+[phone] tel:[phone] 0001 - S Primary Dermatophytosi Nov- PONTICOHIOHE[facility] P[facility]ALL[facility] S Inc, Care s, scalp and 8 SHARIF. [place] beardHypertens 1 [address] Sean ion, essential [address], [place], NOSDermatitis [place], [place] NECDermatophyt [address]. [place], osis, scalp tel:[phone], [place] [address] tel:+160 beardHypertens [phone] ion, essential NOS 0001 - [facility] Primary Dermatophytosi Nov- PONTICREDWOOD LLCS Inc, Care s, scalp and SHARIF. 3357 Gabriel beardHypertens 1 [address] A Sean ion, essential [address], Street, NOSRetention, [place], [place] urine [address]. [place], NOSChronic tel:[phone], [place] Kidney [address] tel:+60 Disease, Stage [id number] IV (severe)Dermat ophytosis, scalp and beardHypertens ion, essential NOSRetention, urine NOS 0001 - [facility] Walk-In Urinary Jul- Referring [facility] [place] retentionReten Provider: Sally [place] tion, urine 1 NDWI Sean NOS GABRIEL. [place], [place], [address], [place] tel:[phone] 0001 - [facility] Walk-In GoutGout NOS Sep-0 WALKER Referring S [facility], Center RADHA. 1302 Provider: Sally [place] 1 E [address], JAYLENE Kaplanicott, [place], [address]. [place] tel:[phone] [place], [phone], [place] tel:[phone] - [facility] Primary Tinea Aug- [facility] Referring S [facility], Care capitisCerumen SHARIF. Provider: Sally [place] impactionDerma 1 [address] SHARIF Estrada tophytosis, [facility], [facility] Street, scalp and [place], [place], , [address] A [place] beardImpacted [id number]. [place], [place], cerumen tel:[phone] Av, [phone], [place] [address] [place], [place], tel:[phone] tel:[phone] - [facility] Walk-In Urinary Tract Apr- LOWRIMiguel MOSELEY. Referring S [facility], Center InfectionUreth S 4433 Provider: Kori-Hung Gabriel ritis [address] NDISIDRA Estrada NECUrethritis E, [place], [place]ABRI[address]. [place], [place], [address]. [place] NEC tel:[phone] [place], [address], [place] tel:[phone] - [facility] Walk-In DysuriaDysuria Apr- WALKER Referring [facility], Center 2 RADHA. 1302 Provider: 33-57 [place] [address] , NDWI Sean [place], [place], [address]. [place] tel:[phone] [place], [address], [place] tel:[phone] - [facility] Walk-In Bleeding Calvin- WALKER Referring [facility], Center noseEpistaxis RADHA. 1302 Provider: 33-57 [place] [address] , NDTX Sean [place], [place], [address]. Dav[place] tel:[phone] [place], [address], [place] tel:[phone] 2019 - [facility] Primary Hypertension, Apr-0 [facility] Referring [facility] essential SHARIF. Provider: 33Yemi [place] NOSChronic 1 [address] SHARIF Sean Kidney [facility], Disease, Stage [place], [place], , [address] [place] [address]. [place], [place], (severe)Dermat tel:[phone] [facility], [address], [place] itis NOS [address] [place], [place], tel:[phone] tel:[phone] - [facility] Walk-In Urethritis Apr-0 LOWRIE PRADIP. Referring [facility], Center NECOrchitis/ep 4- [facility] 4433 Provider: 33-57 [place] ididymitis [address] NDTX Sean NOSUrethritis E, [place], GABRIEL. [place], NECOrchitis/[place], [address]. [place] ididymitis NOS tel:[phone] [place], [address], [place] tel:[phone] 2019 - [facility] Primary Chronic renal Feb-2 [facility], Care [facility] disease, stage 4-201 33-[address], ertensionFoot [place] pain, [place], [address], [place] tel:[phone] - [facility] Primary Calvin-2 [employer], Care 5-200 FL[place]. 33- [place] [address], Sean Floor [address], Street, formerly [facility], [address]. [place], [place], tel:[phone], [place] [address] tel:[phone] 2019 - [facility] Primary Disorder, Calvin-2 [employer], Care psychosexual 4-200 [facility]. 33- [place] NOSRenal [address], Sean failure, acute Floor 5, Street, NOS [facility], [address]. [place], [place], tel:[phone], [place] [address] tel:[phone] Family History Family Member Diagnosis Age At [...] Record Payers Payer name Insurance type Covered libertarian ID Authorization(s) Blake Malik [facility] [place] [id number] [place] He [id number] Social History Type Description Quantity Date Captured Comments Unknown Vital Signs Date / Height Weight [...] Physical Therapy Ordered: Referrals: Physical Therapy. Location: [facility] Tra[facility]. Evaluate and treat Referral Ordered: ordered Transplant Surgery (related to Chronic kidney disease, stage 5) Referral Ordered: ordered Referrals: Transplant Surgery. Evaluate and treat Appointment date/timeframe: 4 Weeks Referral Ordered: ordered Transplant Surgery AT [facility] Appointment date/timeframe: 4 Weeks Referral Ordered: ordered Referrals: Orthopedic Surgery. Evaluate and treat Appointment date/timeframe: 10/20/2018 Referral Ordered: ordered CT Abdomen & Pelvis w/o Contrast Appointment date/timeframe: 10/05/2018 Referral Ordered: ordered U/S Arterial Duplex upper extremity unilateral specify side Left Appointment date/timeframe: Stat Referral Ordered: ordered U/S Vascular Vein Mapping Hemodialysis Appointment date/timeframe: Today Referral Referred To: ordered JOHAN ALMENDAREZ [id number] [place], [phone] Ordered: Vascular Surgery REFERRAL WITH JOHAN ALMENDAREZ AT [facility] Surgery - Vascular Appointment date/timeframe: 1 Month [...] Referral Referred To: ordered FLORY RODRIGUEZ [address] [place], [address] [phone] Ordered: FLORY RODRIGUEZ. Nephrology. Consult and treat. Appointment date/timeframe: 12/29/2010 Referral Referred To: ordered MARTY CAMACHO [facility] [address] [place], [phone] Ordered: MARTY CAMACHO. Urology. Consult and treat. [...] transportation - Thank you for choosing the [facility] Walk In. We hope that you will [...] your kidney functions decreasing Continue care of form drafter, Related to Chronic kidney disease, fistula site healing well stage 4 (severe) Avoid sexual intercourse until Related to Dysuria cultures return.For future encounters pelase have safe sex.Follow up with primary doctor, urologist, and form drafter - Thank you for choosing the [facility] Walk In. We hope that you will [...] follow up Related to Other prostatic with form drafter, and urologist as inflammatory diseases scheduled Cream faxed Related to Tinea unguium Patient scheduled for left AVF Related to Chronic kidney disease, creation with Dr. Almendarez. Vein stage 5 mapping ordered see educational handouttake Related to Gout of big toe medication as directed - Thank you for choosing the [facility] Walk In. We hope that you will [...] to ER. Thank you for choosing the [facility] Walk In. We hope that you will [...] 2-3 days. Thank you for choosing a [facility] Walk In. We hope and expect that [...] painless range of motion, endurance and function ([facility] PT Gabriel, front man to schedule).- He is not interested in [...] to ER. Thank you for choosing the [facility] Walk In. We hope that you will [...] referral to Related to Hypertension, essential NOS pharmacy associate Given your clinical presentation Related to Chest pain and physical exam, I am sending you to the emergency room to rule out heart infarct.Disclaimer:Thank you for using the [facility] walk-in. We hope that you will be [...] a primary care provider, ask at the front man for a list of local providers who [...] come to follow up We will consider form drafter Related to Chronic renal insufficiency referral after [...] choosing the Related to Chronic Kidney Disease, [place] Stage IV (severe) Walk In. We hope [...]
--- OUTSIDE RECORDS SUMMARY | 2020-01-06 15:47 | XMS REPORT | Continuity of Care Document ---
:1975 Author Organization 0001 - [facility] Local [facility] Source Address [address] [place] [address] Phone Care Team Providers Name Role Phone JYOTSNA GALVAN MD Unavailable Unavailable Allergies, Adverse Reactions, Alerts Substance Reaction Status Substance Type Unknown WARNIN allergy(ies) could not be collected because the type is not supported. Please contact [facility] for further details. Medications Medication Instructions Dosage [...] MANDY S Inc, Ctr Ortho glenoid labrum [facility] 33-57 lesion of 0 4433 [address] right Tristiany Miguel, [place], [place], [place] subsOther [address]. [place], [facility] tel:[phone], [place] painOther [address] tel:+60 articular [phone] cartilage disorders, right shoulderElevat ed blood-pressure reading, w/o diagnosis of htnIncomplete rotatr-cuff tear/ruptr of r shoulder, not trauma 0001 - S Ortho Oct- ISABELLA MOSELEY. S Inc, Ctr Ortho 0-202 [facility] 4433 33-[address] Sean E, [place], [address]. [place] tel:[phone] [place], [address], [place] tel:[phone] 0001 - S Ortho Superior Oct- ISABELLA MOSELEY. S Inc, Ctr Ortho glenoid labrum 9 [facility] 4433 33-57 lesion of [address] Sean right E, Leonard, Street, [place], [place], [address]. [place] tel:[phone] [place], [address], [place] tel:[phone] 0001 - [facility] Primary Chronic right Castro-0 TREADWELL S Inc, Care [place] shoulder 3- DANISHA. [address] [place] [address], [place] chronic [place] [address], painDysuriaEre [place], [place], [place] ctile [address]. [place], dysfunction, tel:[phone], [place] unspecified [address] tel:[phone] erectile [phone] dysfunction type 0001 - [facility] Primary Oct-0 TREADWELL S Inc, Care [place] 2-OctE. [address] [place] [address] City 0 [facility] [address], Sean [place] [address], [place], [place] [address]. [place], tel:[phone], [place] [address] tel:[phone] 0001 - [facility] Primary Nov- AMELIA GRACE. [facility] Inc, Care [place] 1-[address] [place] [address] 9 [place], [place], Street, [address]. [place] tel:[phone] [place], [address], [place] tel:[phone] 0001 - [facility] Chronic kidney Sep-1 MICHAEL [facility], Nephrology disease, stage 9-201 [facility]. -57 5Hyp chr [address], [place] kidney disease Floor 5, Street, w stage 5 chr Kemp, [place], [address]. [place], or tel:[phone], [place] ESRDSecondary [address] tel:[phone] hyperparathyro [phone] idism of renal originAnemia in chronic kidney diseaseUnspeci fied hydronephrosis Personal history of nicotine dependence 0001 - [facility] Primary Chronic kidney Sep-1 AMELIA GRACE. S Inc, Care [place] disease, stage 8-[address] [place] [address] 5Hypertension 9 [facility] secondary to [place], [place], Street, other renal [address]. [place] disordersOther tel:[phone] [place], specified [address], [place] disorders of tel: kidney and [phone] ureterPre-op evaluationSupe rior glenoid labrum lesion of right shoulder, subs 0001 - [facility] Primary Encounter for BAKARI S Inc, Care [place] immunization SHARIF. [address], Saen [facility], Street, [place], [place], [place], [address]. [address], [place] tel:[phone] tel: [phone] 0001 - [facility] Ortho Superior Calvin-0 GALVAN [facility] Inc, Ctr Ortho glenoid labrum - JYOTSNA. [facility] 33- lesion of 9 4433 [facility] right Pkw[address] E, Street, [facility], [place], [place], [place] subsOther [address]. [place], sprain of tel:[phone], [place] right shoulder [address] tel: joint, [phone] subsequent encounter 2019 - [facility] Primary Separation of TREADWELL S Inc, Care [place] right DANISHA. [facility] -57 [facility] acromioclavicu [address], [place] lar joint, [place] Street, subsequent [place], [place] encounter [address]. [place], tel:[phone], [place] [address] tel: [phone] 0001 - [facility] Chronic kidney Nov- MICHAEL S Inc, Nephrology disease, stage 5-201 [facility]. Leonard 5Hyp chr [address], Sean kidney disease Floor 5, Street, w stage 5 chr Kemp, [place], [address]. [place], or tel:[phone], [place] ESRDSecondary [address] tel:60 hyperparathyro [phone] idism of renal originAnemia in chronic kidney diseasePersona l history of nicotine dependence 0001 - S Ortho Superior Feb- GALVAN [facility] Inc, Ctr Ortho glenoid labrum 1- JYOTSNA. [facility] 33-57 lesion of 9 [address] Sean [address], Street, shoulder, [place], [place], [place] subsUnspecifie [address]. [place], [place], d sprain of tel:[phone], [place] right shoulder [address] tel: joint, subs [phone] encntrElevated blood-pressure reading, w/o diagnosis of htn 0001 - [facility] Urology Chronic kidney b-0 IOFFE [facility] Inc, disease, stage 8-201 EDWARD. 30 -57 5Erectile 9 [facility], [place] dysfunction [address], Street, due to [facility] diseases [place], [place], [place] [address]. [address], [place] elsewhereObstr tel:776 tel:60 uctive [phone] uropathy 0001 - [facility] Primary Essential Nov-0 TREADWELL S Inc, Care [place] hypertensionES 7- DANISHA. [address] (end stage 9 [facility] renal [facility], disease)Chroni [place], Advon c right [address]. [place], shoulder tel:[phone], [place] painHyp chr [address] tel: kidney disease [phone] w stage 5 chr kidney disease or ESRDPersonal history of nicotine dependence 0001 - [facility] Primary End stage Castro-2 TREADWELL [facility] Inc, Care [place] renal disease OctE. 507 -57 City 9 [facility], [facility], [place], [place] [address]. [place], [place], tel:[phone], [place] [address] tel: [phone] 0001 - [facility] Ortho Pain in right LOWRIE PRADIP. S Inc, Ctr O Rad shoulderElevat 6- [facility] 4433 33-[address] Sean blood-pressure E, Leonard, [place], [place], [place], [address]. [place] diagnosis of tel:[phone] [place], htn [address], [place] tel:[phone] 0001 - S Ortho Right anterior LOWRIE PRADIP. S Inc, Ctr Ortho shoulder pain [facility] 4433 33-[address] Sean E, Leonard, [place], [address]. [place] tel:[phone] [place], [address], [place] tel:+ [phone] 0001 - S Primary Chronic kidney Oct- TREADWELL S Inc, Care [place] disease, stage 5-201 DANISHA. 507 33-57 City [address]Ess[address], Sean hypertensionHy [address], p chr kidney [facility], [place], [place] [address]. [place], stage 5 chr tel:[phone], [place] kidney disease [address] tel:+60 or ESRD [phone] 0001 - S Ortho Pain in LOWRIE PRADIP. [facility] Inc, Ctr Ortho unspecified 5-201 S 4433 33-[address] Sean E, Leonard, [place], [address]. [place] tel:[phone] [place], [address], [place] tel:[phone] 0001 - S Ortho Pain in GALVAN S Inc, Ctr Ortho unspecified - JYOTSNA. [facility] 33-57 shoulder 9 [address], [place], [place] [address]. [place], tel:[phone], [place] [address] tel:[phone] 0001 - S Chronic kidney Oct-0 MICHAEL S Inc, Nephrology disease, stage 3-201 [facility]. 57 5Hyp chr [address], Sean kidney disease Floor 5, Street, w stage 5 chr Kemp, [place], [address]. [place], or tel:[phone], [place] ESRDUnspecifie [address] tel:+[phone] hydronephrosis 0001 - S Primary Separation of TREADWELL [facility] Inc, Care [place] right 7-201 DANISHA. 507 33-57 [facility] acromioclavicu [address], Sean lar joint, Davon Street, sequelaChronic [place], [place] kidney [address]. [place], disease, stage tel:[phone], [place] 5Essential [address] tel:+160 hypertensionHy [phone] p chr kidney disease w stage 5 chr kidney disease or ESRD 0001 - [facility] Urology Hydronephrosis Nov- IOFFE [facility] Inc, , unspecified 0-201 EDWARD. 30 33-57 hydronephrosis 8 [facility] typeChronic [address], Street, kidney [facility] disease, stage [place], [place], 4 [address]. [address], [place] (severe)Testic tel:+[phone] tel:+160 ular [phone] painImpotenceI ncomplete bladder emptyingNoctur ia 0001 - [facility] Primary Nov-0 TREADWELL S Inc, Care [place] 1-OctE. 50 33-57 City 8 [facility], [facility] Street, [place], [place] [address]. [place], [place], tel:[phone], [place] [address] tel:[phone] [place] [address] Primary Chronic kidney Oct-2 TREADWELL [facility] Inc, Care [place] disease, stage 6-201 DANISHA. 50 33-57 City 5Erectile 8 [facility], [facility], due to [place], [place] diseases [address]. [place], classified tel:+[phone], [place] elsewhereEssen [address] tel:+60 tial [phone] hypertensionHy pertensive chronic kidney disease w stg 1-4/unsp chr kdnyHyp chr kidney disease w stage 5 chr kidney disease or ESRD 0001 - [facility] Walk-In Encounter for Sep-2 JAZMYN [facility] Inc, Center screening for 0-201 YENNI. 1302 E 33-57 Gabriel other viral 6 [facility] diseasesEncoun [facility], Street, ter for [place], [place], [address]. [place], human tel:[phone], [place] immunodeficien [address] tel:+60 cy virus [phone] 0001 - [facility] Primary Essential Aug-0 PONTICIELLO S Inc, Care (primary) 5-201 SHARIF. 33-57 Warren hypertensionCh 6 [address] [place] ronic kidney [address], [place], disease, stage [place], [place] 5Tinea [address]. [place], corporisHypert tel:[phone], [place] ensive chronic [address] tel:+60 kidney disease [phone] w stg 1-4/unsp chr kdnyPersonal history of nicotine dependenceHyp chr kidney disease w stage 5 chr kidney disease or ESRD 0001 - [facility] Chronic kidney Han-1 QUASEM [facility] Inc, Nephrology disease, stage 9-201 [place]. 3357 5FSGS (focal 6 [facility] [address], Street, glomeruloscler [facility] [place], [address]. [place], hypertensionOb tel:[phone], [place] structive [address] tel:+160 uropathyHyp [phone] chr kidney disease w stage 5 chr kidney disease or ESRDPersonal history of nicotine dependence 0001 - [facility] Surgery Arm numbness Calvin-1 [facility], left 0-201 MYRANDA. 30 57 6 [facility], [place], [address], [place], [place], [place], [address], [place] [address]. tel:+60 tel:[phone] 2019 - [facility] Chronic kidney Calvin-0 [facility], Nephrology disease, stage 9 [place]. 33 5Essential 6 [facility] [address] (primary) Ave Fl 5, Street, hypertensionOb [facility] [place], [address]. [place], uropathyHyp tel:[phone], chr kidney 15201 tel:+60 disease w [phone] stage 5 chr kidney disease or ESRDPersonal history of nicotine dependence 0001 - [facility] Walk-In Left arm pain Calvin-0 TOKOS RONAL. [employer] [facility], Center 6[address], [facility], [place], [address]. [place] tel:[phone] [place], [address], [place] tel:[phone] 0001 - [facility] Primary Essential Mar-2 PONTICIELLO [facility], Care (primary) 8 SHARIF. 57 Gabriel hypertensionCh 6 [address] [place] ronic kidney [facility], [place], disease, stage Leonard, [facility] 4 [address]. [place], (severe)Hypert tel:[phone], [place] ensive chronic [address] tel: kidney disease [phone] w stg 1-4/unsp chr kdnyNicotine dependence, cigarettes, uncomplicated 0001 - [facility] Chronic kidney Mar-0 [facility], Nephrology disease, stage 3-201 [place]. 33-57 4 6 [facility] [address] (severe)Hypert Ave Fl 5, Street, ensive [place], [address]. [place], CKD stage tel:[phone], [place] IVObstructive [address] tel:60 uropathyFocal [phone] segmental glomeruloscler osisNicotine dependence, cigarettes, uncomplicated 0001 - [facility] Walk-In DysuriaEncount TOKOS RONAL. [facility], Center er for [address] 33-57 Gabriel screening for 6 , [facility] other viral Warren, [place], [place], [address]. [place] tel:775 [place], [address], [place] tel: [phone] 0001 - [facility] Primary Other Oct-2 PONTICIELLO S Inc, Care prostatic 7- SHARIF. 33-57 Warren inflammatory 6 [address]inea [address], Street, unguiumEssenUNC Health Nash al (primary) [address]. [place], hypertensionPe tel:[phone], [place] rsonal history [address] tel: of nicotine [phone] dependence 0001 - [facility] Surgery Chronic kidney LINDA [facility] Inc, disease, stage 3-201 MYRANDA. 30 33-57 5 6 Sean Estrada [place], Street, [address], [place], [place], [address], [place] [address]. tel: tel:[phone] 62920 0001 - [facility] Stage 5 Castro-0 OFERTALDIAJOHN J. [facility] Source, Nephrology chronic kidney 8-201 [place]. 33-57 disease due to 6 [facility] [address], Street, hypertensionCh [place], [address]. [place], disease, stage tel:[phone], [place] 5Obstructive [address] tel:+60 uropathy [phone] 0001 - S Walk-In Gout of big Castro-0 TOKOS RONAL. S Inc, Center toe 7-201 [address] 33-[address], [facility], [facility], [place], [address]. [place] tel:[phone] [place], [address], [place] tel:[phone] 0001 - S Walk-In TineaHypertens Dec-2 YARDE S Inc, Center ion 3-201 DAVINIA. 33-57 Warren [address] [place] [address], [place], [place], [place], [address]. [address], [place] tel:+[phone] tel:[phone] 0001 - S Walk-In Dysuria Apr-0 [facility] Inc, Center 9-201 CED. 33-57 Gabriel 5 [facility]7 [facility], [place], [place], [place], [address]. [address], [place] tel:+[phone] tel:[phone] 0001 - S Chronic Kidney Mar-1 S Inc, Nephrology Disease, Stage 2-201 33-57 Leonard IV 5 [place] (severe)[facility] UnspecifiedDis [place], ease, [address], [place] hypertensive tel:+60 renal NOS, w/o [phone] RF 0001 - S Pain in Mar-0 BENTLEY S Inc, Orthopedics shoulder 4-201 KIKI. 93 33-57 Kemp 5 [facility], [facility], [place], [facility], [address]. [place], tel:[phone], [place] [address] tel:[phone] 0001 - S Walk-In Urinary Mar-0 YARDE [facility] Inc, Center frequency 1-201 DAVINIA. 33-57 Warren [address] [place] [address], [place], [place], [place], [address]. [address], [place] tel:[phone] tel:[phone] 0001 - [facility] Primary Pain in joint, Fe- PONTICIELLO S Inc, Care shoulder SHARIF. [facility] 5 116 A Tra [facility], Street, [facility] NOS [place], [place] [address]. [place], tel:[phone], [place] [address] tel:[phone] 0001 - [facility] Walk-In Chest pain Dec-0 S Inc, Center Gabriel 4 [place], [address], [place] tel:[phone] 0001 - [facility] Pain in joint, XIAO ELAINE. S Inc, Orthopedics shoulder 30 [place] 57 [facility] [address] [place] [address], [place], [place], [place], [address]. [address], [place] tel:[phone] tel:[phone] 0001 - S Urology Varix, scrotal Aug- PAREEK S Inc, NATWAR. 30 4 [facility], [place], [address], [place], [place], [place], [address], [place] [address]. tel:+[phone] tel:[phone] 59933 0001 - [facility] Primary Shoulder pain Nov- HORNE S Inc, Care 0 KHUSHBOO. [address] Warren 4 [facility], [facility], [facility], [address]. [place], tel:[phone], [place] [address] tel:[phone] 0001 - Outpatient - Accidental Nov-0 PONTICmytrax S Inc, Other - [facility] fall NEC SHARIF. 4 116 A Sean [facility], [place], [facility] [address]. [place], tel:[phone], [place] [address] tel:[phone] 0001 - [facility] Primary Shoulder Oct-3 HORNE S Inc, Care painWrist 1-201 KHUSHBOO. 1302 E 33-57 Warren painHypertensi [address], Sean on, essential [facility], Street, NOSAccidental [facility] fall on/[place], [address]. [place], stairs or tel:[phone], [place] steps NEC [address] tel:[phone] 0001 - S Primary Gout Jul-2 PONTICIELLO S Inc, Care NOSChronic 0-201 SHARIF. 33-57 Gabriel renal 4 116 A Sean insufficiencyT [facility], Street, [place], [place], [place] painHypertensi [address]. [facility], [place], on, essential tel:[phone], [place] NOS [address] tel:[phone] 0001 - S Walk-In Testicular Oct-0 [employer] S Inc, Center pain 7-201 CHAVA. 33-57 Warren 4 [address] [facility], [facility], [place], [facility], [address]. [place], tel:[phone], [place] [address] tel:[phone] 0001 - S Walk-In Gout NOS Sep-2 ZAMaizhuo S Inc, Center 6-201 CHAVA. 33-57 Gabriel 4 [address] [facility], [facility], [place], [facility], [address]. [place], tel:[phone], [place] [address] tel:[phone] 0001 - S Walk-In Gout Sep-1 GIANGRIECO S Inc, Center NOSChronic 6-201 MONISHA. 33-57 Gabriel Kidney 4 [address] [place] Disease, Stage St, Street, IV (severe) [facility], [address]. [place], tel:[phone], [place] [address] tel:[phone] 0001 - [facility] Primary Chronic Kidney February- HORNE S [facility], Care Disease, Stage 3-201 KHUSHBOO. 1302 E 33-57 Warren IV [address], Sean (severe)Erecti [facility], Street, [facility] [place], [address]. [place], ertension, tel:[phone], [place] essential NOS [address] tel:+ [phone] 0001 - S Walk-In UrethritisDisc Referring S [facility], [facility], Provider: Sally Leonard urethral 4 WALKIN [facility], Street, [address], [place], [place], [address], [place] [address]. tel:+ [phone] 0001 - S Walk-In Dysuria Referring S [facility], [place] Provider: Sally Kaplanicott 4 NDWI [facility] [place], [address], [place] tel:+ [phone] 0001 - [facility] Fx closed [facility], Orthopedics radius, [place]. [facility] Kemp headDislocatio 3 [address] [facility], [place], acromioclavicu [facility] larWrist [address]. [place], [place], painAftercare, tel:[phone], [place] healing [address] tel:+60 traumatic fx, [phone] upper armAftercare, healing traumatic fx, lower arm 0001 - [facility] Radial head [facility], Orthopedics fractureAcromi [place]. [facility] 57 Kemp oclavicular 3 [address], Street, [place], [place], [place] [address]. [place], [place], tel:[phone], [place] [address] tel:+ [phone] 0001 - S Walk-In LumbagoLumbago Referring S Inc, [place] Accidental Provider: Sally Gabriel fall NECPlace 3 NDWI Sean of occurrence, GABRIEL. Street, [place], [address], [place] tel:+ [phone] 0001 - [facility] Urology Chronic renal AJIT S Inc, insufficiency 6- AHMED. [facility] -57 2 30 Count Includes [facility] [address], [place], [place], [place], [place], [address]. [address], [place] tel:[phone] tel:[phone] 0001 - S Walk-In LumbagoLumbago ZARRINI Referring S Inc, Center LumbagoLumbago CHAVA. Provider: Sally Gabriel 2 [address] [facility], SWIC, GABRIEL. Street, [facility], [address]. [place], [place], tel:[phone], [place] [address] tel:[phone] 0001 - [facility] Urology UPJ May- AJIT S Inc, obstruction, 7 AHMED. [facility] acquired 2 30 Count Includes [facility] [address], [place], [place], [place], [address]. [address], [place] tel:[phone] tel:[phone] 0001 - [facility] Primary Gout NOSGout May- [facility] Inc, Care NOS 1-201 SHARIF. Warren [address], [place], [place] [address]. [place], tel:[phone], [place] [address] tel:[phone] 0001 - [facility] Primary Gout NOS Apr- [facility] Inc, Care 4-201 SHARIF. Gabriel [address], [place], [place] [address]. [place], tel:[phone], [place] [address] tel:[phone] 0001 - S Walk-In Open Apr- WALKER Referring S Inc, Center woundWound 5-201 RADHA. 1302 Provider: Sally Zelaya open, scalp [address], NDWI Sean w/o [place], GABRIEL. [facility], [address]. [facility] nanette, site tel:[phone] [place], NOS w/o [address], [place] complicationWo tel:+ und open, site [phone] NOS w/o complication 0001 - S Primary GoutGout NOS Calvin-1 PONTICIELLO S Inc, Care 2-201 SHARIF. Gabriel 2 [address] Jacquese, [place], [place], [place] [address]. [place], tel:[phone], [place] [address] tel:+ [phone] 0001 - S Primary Gout May-1 PONTICIELLO S Inc, Care NOSHypertensio 6-201 SHARIF. Gabriel n, essential 2 116 A Sean NOSScreening [facility], [place], for viral [place], [place] disease [address]. [place], NECGout tel:[phone], NOSHypertensio [address] tel:+ n, essential [phone] NOS 0001 - S Walk-In Gout NOSGout May-0 WALKER Referring S Inc, Center NOSGout NOS RADHA. 1302 Provider: Gabriel [address] [facility] [place], [address]. [place] tel:+[phone] [place], [address], [place] tel:[phone] 0001 - [facility] Urology Hypertension, Fe- AJIT S Inc, essential NOS 9201 AHMED. [facility] 57 2 30 Count Includes [facility] [address], Street, [place], [place], [place], [address]. [address], [place] tel:[phone] tel:[phone] 0001 - S Primary Dermatophytosi Nov-1 PONTICIELLO S Inc, Care s, scalp and 8 SHARIF. Gabriel beardHypertens 1 116 A Sean ion, essential [facility], [place], NOSDermatitis [place], [place] NECDermatophyt [address]. [place], osis, scalp tel:[phone], [place] [address] tel:+160 beardHypertens [phone] ion, essential NOS 0001 - [facility] Primary Dermatophytosi Nov- [facility] Inc, Care s, scalp and SHARIF. 3357 Gabriel beardHypertens 1 116 A Sean ion, essential [facility], Street, NOSRetention, [place], [place], [place] urine [address]. [place], NOSChronic tel:[phone], [place] Kidney [address] tel:+60 Disease, Stage [id number] IV (severe)Dermat ophytosis, scalp and beardHypertens ion, essential NOSRetention, urine NOS 0001 - [facility] Walk-In Urinary Jul- Referring [facility], [place] retentionReten Provider: Sally Warren tion, urine 1 NDWI Sean NOS GABRIEL. [place], [place], [address], [place] tel:[phone] 0001 - [facility] Walk-In GoutGout NOS Sep-0 WALKER Referring S [facility], [place] RADHA. 1302 Provider: Sally Warren [address], JAYLENE Estrada Warren, [place], [address]. [place] tel:+[phone] [place], [id number], [place] tel: [phone] - [facility] Primary Tinea Aug- [facility] Referring S [facility], Care capitisCerumen SHARIF. Provider: 33-57 Gabriel impactionDerma 1 [address] SHARIF Estrada tophytosis, [facility], [facility] Street, scalp and [place], [place], , [address] beardImpacted [id number]. [place], [place], cerumen tel:[phone] Av, [address], [place] [address] [place], [place], tel:[phone] tel:[phone] - [facility] Walk-In Urinary Tract LOWRIMiguel MOSELEY. Referring S [facility], Center InfectionUreth S 4433 Provider: 33-57 Gabriel ritis [address] NDWI Sean NECUrethritis E, [place], GABRIEL. Street, [place], [address]. Davon NEC tel:[phone] [place], [address], [place] tel:[phone] - [facility] Walk-In DysuriaDysuria Apr- WALKER Referring [facility], Center 2201 RADHA. 1302 Provider: 33-57 Gabriel 1 E [facility], NDNC Sean Gabriel, [place], [address]. Davon tel:[phone] [place], [address], [place] tel:[phone] - [facility] Walk-In Bleeding Calvin- WALKER Referring [facility], Center noseEpistaxis RADHA. 1302 Provider: 33-57 Gabriel 1 E [facility], NDISIDRA Estrada Gabriel, [place], [address]. Davon tel:[phone] [place], [address], [place] tel:[phone] - [facility] Primary Hypertension, Apr-0 [facility] Referring [facility] essential 6 SHARIF. Provider: 33-Hung Zelaya NOSChronic 1 [address] SHARIF Sean Kidney [facility], Disease, Stage [place], [place], , [address] [place] [address]. [place], [place], (severe)Dermat tel:[phone] [facility], [address], [place] itis N[place] [address] [place], [place], tel:[phone] tel:[phone] - [facility] Walk-In Urethritis Apr-0 LOWRIE PRADIP. Referring [facility], Center NECOrchitis/ep 4-201 [facility] 4433 Provider: 33-57 Gabriel [address]itis [address] NDNC Sean NOSUrethritis E, [place], GABRIEL. Street, NECOrchitis/[place], [address]. Davon ididymitis NOS tel:[phone] [place], [address], [place] tel:[phone] - [facility] Primary Chronic renal Feb-2 [facility], Care [address] disease, stage 4-201 33-57 [address], ertensionFoot Davon pain, [place], [address], [place] tel:[phone] [facility] - [facility] Primary Calvin- MICHAEL [facility] [facility], Care 5-200 [address]emp [address], Sean Floor 5, Street, [facility], [address]. [place], [place], tel:[phone], [place] [address] tel:[phone] [facility] - [facility] Primary Disorder, Calvin- MICHAEL [employer], Care psychosexual 4-200 [facility]. Kemp NOSRenal [address], Sean failure, acute Floor 5, Street, NOS [facility], [address]. [place], [place], tel:[phone], [place] [address] tel:[phone] Family History Family Member Diagnosis Age At [...] type Covered libertarian ID Authorization(s) Blake Malik [facility] [id number] Medicaid [place] He [id number] Social History Type Description Quantity Date Captured [...] Physical Therapy Ordered: Referrals: Physical Therapy. Location: [facility]. Evaluate and treat Referral Ordered: ordered Transplant Surgery (related to Chronic kidney disease, stage 5) Referral Ordered: ordered Referrals: Transplant Surgery. Evaluate and treat Appointment date/timeframe: 4 Weeks Referral Ordered: ordered Transplant Surgery AT [facility] Appointment date/timeframe: 4 Weeks Referral Ordered: ordered Referrals: Orthopedic Surgery. Evaluate and treat Appointment date/timeframe: 10/20/2018 Referral Ordered: ordered CT Abdomen & Pelvis w/o Contrast Appointment date/timeframe: 10/05/2018 Referral Ordered: ordered U/S Arterial Duplex upper extremity unilateral specify side Left Appointment date/timeframe: Stat Referral Ordered: ordered U/S Vascular Vein Mapping Hemodialysis Appointment date/timeframe: Today Referral Referred To: ordered JOHAN ALMENDAREZ [address], [phone] Ordered: Vascular Surgery REFERRAL WITH JOHAN ALMENDAREZ AT [facility] Surgery - Vascular Appointment [...] Referral Referred To: ordered FLORY RODRIGUEZ [address] [place], [address] [phone] Ordered: FLORY RODRIGUEZ. Nephrology. Consult and treat. Appointment date/timeframe: 12/29/2010 Referral Referred To: ordered MARTY CAMACHO [facility] [address] [place], [phone] Ordered: MARTY CAMACHO. Urology. Consult and treat. Appointment date/timeframe: 12/16/2010 Appointment EDWIN RODRIGUEZ Appointment EDWIN RODRIGUEZ Appointment EDWIN RODRIGUEZ Unknown Immunization Influenza, injectable, quadrivalent, preservative ordered [...] you for choosing the other viral diseases [facility] Walk In. We hope [...] transportation - Thank you for choosing the [facility] Walk In. We hope [...] your kidney functions decreasing Continue care of bell clerk, Related to Chronic kidney disease, fistula site healing well stage 4 (severe) Avoid sexual intercourse until Related to Dysuria cultures return.For future encounters pelase have safe sex.Follow up with primary doctor, urologist, and bell clerk - Thank you for choosing the [facility] Walk In. We hope [...] follow up Related to Other prostatic with bell clerk, and urologist as inflammatory diseases scheduled Cream faxed Related to Tinea unguium Patient scheduled for left AVF Related to Chronic kidney disease, creation with Dr. Almendarez. Vein stage 5 mapping ordered see educational handouttake Related to Gout of big toe medication as directed - Thank you for choosing the [facility] Walk In. We hope [...] to ER. Thank you for choosing the [facility] Walk In. We hope [...] 2-3 days. Thank you for choosing a [facility] Walk In. 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 We hope that [...] primary care provider, ask at the front desk assistant for a list of local providers who [...] come to follow up We will consider bell clerk Related to Chronic renal insufficiency referral after [...] choosing the Related to Chronic Kidney Disease, [place] Stage IV (severe) Walk In. We hope [...]
--- OUTSIDE RECORDS SUMMARY | 2020-01-06 15:47 | XMS REPORT | Continuity of Care Document ---
:1975 Author Organization 0001 - [facility] Address [address] [place] [address] Phone Care Team Providers Name Role Phone PRADIP PITT Unavailable Unavailable Allergies, Adverse Reactions, Alerts Substance Reaction Status Substance Type Unknown WARNIN allergy(ies) could not be collected because the type is not supported. Please contact [facility] for further details. Medications Medication Instructions [...] Effective Dates (start - Clinical Status stop) Procedure and treatment not carried out - for other reasons Superior glenoid labrum lesion of right - [...] For Visit Copied on Encounter 0001 - [facility] Ortho Procedure and ISABELLA MOSELEY. [facility], Ctr Ortho treatment not [facility] 4433 33-57 carried out [address] Sean for other E, [place], [place], [place], [address]. [place] tel:[phone] [place], [address], [place] tel:[phone] 0001 - [facility] Ortho Superior GALVAN [facility], Ctr Ortho glenoid labrum JYOTSNA. [facility] 33-57 lesion of 0 [address], Street, shoulder, [place], [place], [place] subsOther [address]. [place], chronic tel:[phone], [place] painOther [address] tel:+[phone] articular [phone] cartilage disorders, right shoulderElevat ed blood-pressure reading, w/o diagnosis of htnIncomplete rotatr-cuff tear/ruptr of r shoulder, not trauma 0001 - Physician ISABELLA MOSELEY. [facility] Inc, Services [facility] 4433 33[address] Sean E, [place], [place], [address]. [place] tel:[phone] [place], [address], [place] tel:[phone] 0001 - [facility] Ortho Superior Oct-0 ISABELLA MOSELEY. S Inc, Ctr Ortho glenoid labrum [facility] 4433 33-57 lesion of [address] Sean right E, [place], Street, [place], [place], [address]. 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, Care [place] shoulder DANISHA. [facility] [address] [facility] 0 [facility], [facility], painDysuriaEre [place], [place] ctile [address]. [place], dysfunction, tel:[phone], [place] unspecified [address] tel:+[address] [facility] [phone] dysfunction type 0001 - [facility] Primary Oct-0 [facility] Inc, Care [place] [address] [place] [address], [facility], [place], [place] [address]. [place], tel:[phone], [place] [address] tel:[phone] 0001 - [facility] Primary Nov-1 AMELIA GRACE. [facility], Care [place] [address] [place] [address], [place], [address]. [place] tel:[phone] [place], [address], [place] tel:[phone] 0001 - [facility] Chronic kidney Sep-1 MICHAEL [facility], Nephrology disease, stage [facility]. 5Hyp chr 9 [address], [place] kidney disease Floor 5, Street, w stage 5 chr [place], [address]. [place], or tel:[phone], [place] ESRDSecondary [address] tel:[phone] hyperparathyro [phone] idism of renal originAnemia in chronic kidney diseaseUnspeci fied hydronephrosis Personal history of nicotine dependence 0001 - [facility] Primary Chronic kidney Sep- AMELIA GRACE. S Inc, Care [place] disease, stage 8-201 507 [facility], [address] [place] [address] 5Hypertension 9 [facility] secondary to [place], [place], Street, other renal [address]. [place] disordersOther tel:[phone] [place], specified [phone], [place] disorders of tel:60 kidney and [id number] ureterPre-op evaluationSupe rior glenoid labrum lesion of right shoulder, subs 0001 - [facility] Primary Encounter for BAKARI S Inc, Care [place] immunization 1- SHARIF. 33-57 City 9 507 [facility], [place] [facility], Street, [place], [place], [place], [address]. [address], [place] tel:[phone] tel: [phone] 0001 - [facility] Ortho Superior Calvin-0 GALVAN S Inc, Ctr Ortho glenoid labrum 4-201 JYOTSNA. [facility] 33-57 lesion of 9 4433 [facility] right Pkw[address] E, Street, shoulder, [place], [place], [place] subsOther [address]. [place], sprain of tel:[phone], [place] right shoulder [address] tel:60 joint, [phone] subsequent encounter 2019 - [facility] Primary Separation of Nov- TREADWELL S Inc, Care [place] right 9- DANISHA. [facility] [address] acromioclavicu 9 [facility] lar joint, [facility], subsequent [place], [place] encounter [address]. [place], tel:[phone], [place] [address] tel:[phone] 0001 - [facility] Chronic kidney b- MICHAEL S Inc, Nephrology disease, stage 5-201 FLORY. 33-57 Leonard 5Hyp chr [address], [place] kidney disease Floor 5, Street, w stage 5 chr [place], [place], [address]. [place], or tel:[phone], [place] ESRDSecondary [address] tel:+60 hyperparathyro [phone] idism of renal originAnemia in chronic kidney diseasePersona l history of nicotine dependence 2019 - [facility] Ortho Superior Nov- GALVAN S Inc, Ctr Ortho glenoid labrum JYOTSNA. [facility] lesion of 9 [address], Street, shoulder, [place], [place], [place] subsUnspecifie [address]. [facility], [place], d sprain of tel:[phone], [place] right shoulder [address] tel: joint, subs [phone] encntrElevated blood-pressure reading, w/o diagnosis of htn 2019 - [facility] Urology Chronic kidney IOFFE [facility], disease, stage 8 EDWARD. 5Erectile [address] [facility], [place] dysfunction [address], Street, due to [facility] [place], [place], classified [address]. [address], [place] elsewhereObstr tel:776 tel: uctive [phone] uropathy 2019 - [facility] Primary Essential Nov- [employer], Care [place] hypertensionES DANISHA. [address] (end stage 9 [facility], [place] renal [facility], disease)Chroni [place], [place] c right [address]. [place], shoulder tel:[phone], [place] painHyp chr [address]293 tel:60 kidney disease [id number] w stage 5 chr kidney disease or ESRDPersonal history of nicotine dependence 2019 - [facility] Primary End stage Oct-2 TREADWELL [employer] [facility], Care [place] renal disease OctE. 5057 [address] 9 [facility], [address] [address], [place], [place] [address]. [place], tel:[phone], [place] [address] tel: [phone] 0001 - [facility] Ortho Pain in right LOWRIE PRADIP. S Inc, Ctr O Rad shoulderElevat 6 [facility] 4433 33-[address] Sean blood-pressure E, [place], Street, reading, [place], [address]. [place] diagnosis of tel:[phone] [place], htn [address], [place] tel:[phone] 0001 - S Ortho Right anterior LOWRIE PRADIP. [facility], Ctr Ortho shoulder pain 6-201 S 4433 33-[address] Sean E, [place], [address]. [place] tel:[phone] [place], [address], [place] tel:[phone] 0001 - S Primary Chronic kidney Oct- TREADWELL [facility], Care [place] disease, stage 5-201 DANISHA. 507 33-57 [facility] 5Essential [address], [place] hypertensionHy [place] [address], p chr kidney [place], [place] [address]. [place], stage 5 chr tel:[phone], [place] kidney disease [address] tel:+60 or ESRD [phone] 0001 - S Ortho Pain in LOWJACKELYNE PRADIP. [facility], Ctr Ortho unspecified 5-201 S 4433 33-[address] Sean E, [place], [address]. [place] tel:[phone] [place], [address], [place] tel:[phone] 0001 - S Ortho Pain in GALVAN [facility], Ctr Ortho unspecified 9-201 JYOTSNA. [facility] 33-57 shoulder 9 [address], Street, [place], [place] [address]. [place], tel:[phone], [place] [address] tel:[phone] 0001 - S Chronic kidney Oct-0 MICHAEL S Inc, Nephrology disease, stage 3-201 FLORY. 33-57 5Hyp chr [address], Sean kidney disease Floor 5, Street, w stage 5 chr [place], [place], [address]. [place], or tel:[phone], [place] ESRDUnspecifie [address] tel:[phone] hydronephrosis 0001 - S Primary Separation of Dec- TREADWELL [facility], Care [place] right 7-201 DANISHA. 507 33-57 [facility] acromioclavicu 8 [facility] lar joint, [place] Street, sequelaChronic [place], [place] kidney [address]. [place], disease, stage tel:[phone], [place] 5Essential [address] tel:+[phone] hypertensionHy [phone] p chr kidney disease w stage 5 chr kidney disease or ESRD 0001 - [facility] Urology Hydronephrosis Nov-2 IOFFE S Inc, , unspecified 0-201 EDWARD. 30 33-57 hydronephrosis 8 [facility] typeChronic [address], Street, kidney [facility] disease, stage [facility], [place], [facility], [place], 4 [address]. [address], [place] (severe)Testic tel:+[phone] tel:+1-60 ular [phone] painImpotenceI ncomplete bladder emptyingNoctur ia 0001 - [facility] Primary Nov-0 TREADWELL S Inc, Care [place] 1-OctE. 50 33-57 [facility] 8 [facility], [facility], [place], [place] [address]. [place], tel:[phone], [place] [address] tel:[phone] 0001 - [facility] Primary Chronic kidney Oct-2 TREADWELL S Inc, Care [place] disease, stage 6-201 DANISHA. 50-57 [facility] 5Erectile 8 [facility] dysfunction [facility], due to [place], [place] diseases [address]. [place], classified tel:[phone], [place] elsewhereEssen [address] tel:+[phone] tial [phone] hypertensionHy pertensive chronic kidney disease w stg 1-4/unsp chr kdnyHyp chr kidney disease w stage 5 chr kidney disease or ESRD 0001 - [facility] Walk-In Encounter for Sep-2 JAZMYN S Inc, Center screening for 0-201 YENNI. 1302 E 33-57 Gabriel other viral 6 [facility] Arlington[facility], Street, ter [place], [address]. [place], human tel:[phone], [place] immunodeficien [address] tel:+1-60 cy virus [phone] 0001 - [facility] Primary Essential Aug-0 PONTICIELLO [facility], Care (primary) SHARIF. 33-57 [place] hypertensionCh 6 [address] A Sean ronrahel kidney [address], Street, disease, stage [facility] 5Tinea [address]. [place], corporisHypert tel:[phone], [place] ensive chronic [address] tel:+60 kidney disease [phone] w stg 1-4/unsp chr kdnyPersonal history of nicotine dependenceHyp chr kidney disease w stage 5 chr kidney disease or ESRD 0001 - [facility] Chronic kidney Apr- [facility] SERVICES[facility], Nephrology disease, stage [place]. 33-57 5FSGS (focal 6 [facility] [address], Street, glomeruloscler [facility] [place], [address]. [place], hypertensionOb tel:[phone], [place] structive [address] tel:+60 uropathyHyp [id number] chr kidney disease w stage 5 chr kidney disease or ESRDPersonal history of nicotine dependence 0001 - [facility] Surgery Arm numbness Calvin- [facility], left 0-201 MYRANDA. 30 33-57 6 [facility], [place], [address], [place], [place], [place], [address], [place] [address]. tel:+60 tel:[phone] [phone] - [facility] Chronic kidney Calvin-0 [facility] SERVICESRh[facility]ing, Nephrology disease, stage [place]. 33 5Essential 6 [facility] [address] (primary) Ave Fl 5, Street, hypertensionOb [place], [address]. [place], uropathyHyp tel:[phone], [place] chr kidney [address] tel:+60 disease w [phone] stage 5 chr kidney disease or ESRDPersonal history of nicotine dependence 0001 - [facility] Walk-In Left arm pain Calvin- TOKOS RONAL. [facility], Center [address], [facility], [facility], [place], [address]. [place] tel:[phone] [place], [address], [place] tel:[phone] 0001 - [facility] Primary Essential Mar-2 PONTICIELLO S Inc, Care (primary) 8- SHARIF. 33-57 [place] hypertensionCh 6 [address] A Sean ronic kidney [address], Street, disease, stage [place], [place], [place] 4 [address]. [place], (severe)Hypert tel:[phone], [place] ensive chronic [address] tel:+60 kidney disease [phone] w stg 1-4/unsp chr kdnyNicotine dependence, cigarettes, uncomplicated 0001 - [facility] Chronic kidney Mar-0 QUASEM [facility], Nephrology disease, stage 3-201 [place]. 4 6 [facility] [address] (severe)Hypert Ave Fl 5, Street, ensive kidney [place]ly [facility], [facility] [place], [address]. [place], CKD stage tel:[phone], [place] IVObstructive [address] tel:+160 uropathyFocal [phone] segmental glomeruloscler osisNicotine dependence, cigarettes, uncomplicated 0001 - [facility] Walk-In DysuriaEncount TOKOS RONAL. [facility], Center er for [address] [place] screening for 6 , YVETTESean other viral [place], [place], [facility], [address]. [place] tel:[phone] [place], [address], [place] tel:+ [phone] 0001 - [facility] Primary Other Castro- [employer] S Inc, Care prostatic 7- SHARIF. 33-57 Gabriel inflammatory 6 [address] Sean diseasesTinea [address], Street, unguiumEssenti [facility] al (primary) [address]. [place], hypertensionPe tel:[phone], [place] rsonal history [address] tel:+1-60 of nicotine [phone] dependence 0001 - [facility] Surgery Chronic kidney Oct- [facility] Inc, disease, stage 3-201 MYRANDA. 30 57 5 6 Sean Estrada [place], Street, [address], [place], [place], [place], [address], [place] [address]. tel:+ tel:[phone] 99084 0001 - S Stage 5 Castro-0 QUASEM [facility] Inc, Nephrology chronic kidney 8-201 [place]. 3357 disease due to 6 [facility] [address], Street, hypertensionCh [place], [address]. [place], disease, stage tel:[phone], [place] 5Obstructive [address] tel:+60 uropathy [phone] 0001 - S Walk-In Gout of big Castro-0 TOKOS RONAL. S Inc, Center toe 7-201 [address], [facility], [place] Gabriel, [place], [address]. [place] tel:[phone] [place], [address], [place] tel:+ [phone] 0001 - [facility] Walk-In TineaHypertens Dec-2 YARDE S Inc, Center ion 3-201 DAVINIA. 57 [place] 5 4417 [facility], [place], [place], [place], [address]. [address], [place] tel:+[phone] tel:+ [phone] 0001 - [facility] Walk-In Dysuria Apr-0 [facility] Inc, Center 9-201 CED. 57 Gabriel 5 4417 [place], [address]. [address], [place] tel:+[phone] tel:[phone] 0001 - S Chronic Kidney Mar-1 S Inc, Nephrology Disease, Stage 2-201 57 Leonard IV 5 Sean (severe)Hypert [place], [facility] UnspecifiedDis [place], ease, [address], [place] hypertensive tel:+60 renal NOS, w/o [phone] RF 0001 - S Pain in Mar-0 BENTLEY S Inc, Orthopedics shoulder 4-201 KIKI. 93 33-[address], [facility], Street, [facility], [address]. [place], tel:[phone], [place] [address] tel:[phone] [phone] 0001 - S Walk-In Urinary Mar-0 YARDE S Inc, Center frequency 1- DAVINIA. Gabriel 5 4417 [place], [place], [place], [address]. [address], [place] tel:[phone] tel:[phone] 0001 - S Primary Pain in joint, PONTICIELLO S Inc, Care shoulder SHARIF. [facility] 5 116 A [facility] [address]. [place], tel:[phone], [place] [address] tel:[phone] 0001 - S Walk-In Chest pain Dec-0 S Inc, Center Gabriel 4 [place], [address], [place] tel:[phone] 0001 - S Pain in joint, NINOSKA HENRY. S Inc, Orthopedics shoulder [address] [place] [address], [place], [place], [place], [address]. [address], [place] tel:[phone] tel:[phone] 0001 - S Urology [employer], scrotal Nov- PAREEK S Inc, 8 NATWAR. 30 57 4 [facility], [place], [address], [place], [place], [place], [address], [place] [address]. tel:+160 tel:[phone] 38713 0001 - S Primary Shoulder pain Nov- [facility] Inc, Care 0- KHUSHBOO. 1302 E 3357 [place] 4 [facility], [place], [facility], [address]. [place], tel:[phone], [place] [address] tel:[phone] 0001 - Outpatient - Accidental Nov-0 PONTICIELLO [employer], Other - [facility] fall NEC 7-201 SHARIF. 33-57 4 [address] [place], [place], [place] [address]. [place], tel:[phone], [place] [address] tel:[phone] 0001 - [facility] Primary Shoulder Oct-3 HORNE S Inc, Care painWrist 1-201 KHUSHBOO. 1302 E 33-57 [place] painHypertensi 4 Main [facility], essential [facility], Street, NOSAccidental [facility] [place], [address]. [place], stairs or tel:[phone], steps NEC [address] tel:[phone] 0001 - [facility] Primary Gout Oct-2 PONTICIELLO [facility] Inc, Care NOSChronic 0-201 SHARIF. 3357 Gabriel renal 4 116 [address] Sean [place], [place], esticular [place], [place], [place] painpertensi [address]. [place], , essential tel:[phone], [place] NOS [address] tel:[phone] 0001 - [facility] Walk-In Testicular Oct-0 ZARRINI [employer] Inc, Center pain 7-201 CHAVA. 57 [place] 4 1302 E [facility], [address]. [place], tel:[phone], [place] [address] tel:[phone] 0001 - [facility] Walk-In Gout NOS Sep-2 ZARRINI [facility] Inc, Center 6-201 CHAVA. -57 [place] 4 1302 E [facility], [address]. [place], tel:[phone], [place] [address] tel:[phone] 0001 - [facility] Gout Sep-1 GIANGRIECO [facility] Inc, Center NOSChronic 6-201 MONISHA. 33-57 [place] Kidney 4 [address] Sean Disease, Stage St, Street, IV (severe) [place], [address]. [place], tel:[phone], [place] [address] tel:[phone] [phone] 0001 - [facility] Primary Chronic Kidney [facility], Care Disease, Stage 3-201 KHUSHBOO. 1302 E 33-57 Gabriel IV 4 Main , Sean (severe)Erecti [facility], Street, [place], [address]. [place], ertension, tel:[phone], [place] essential NOS [address] tel:[phone] [phone] 0001 - [facility] Walk-In UrethritisDisc Referring [facility], [facility], Provider: Sally [place] urethral 4 WALKIN Sean [place], [place], [address] [facility], [place], [address], [place] [address]. tel:[phone] 0001 - [facility] Walk-In Dysuria Referring [facility], [place] Provider: Sally [place] 4 [place], [address], [place] tel:[phone] 0001 - [facility] Fx closed [facility], Orthopedics radius, [place]. [facility] - [place] headDislocatio 3 [address] Sean n closed [address], [place], acromioclavicu [place], [place] larWrist [address]. [place], painAftercare, tel:[phone], [place] healing [address] tel:+60 traumatic fx, [phone] upper armAftercare, healing traumatic fx, lower arm 0001 - [facility] Radial head May- [facility], Orthopedics fractureAcromi [place]. [facility] 33-57 [place] oclavicular 3 [address], Street, separation [place], [place], [place] [address]. [place], tel:[phone], [place] [address] tel:[phone] 0001 - S [facility] Referring S Inc, Center Accidental Provider: Sally Rios fall NECPlace 3 NDWI [facility], [address], [place] tel:[phone] 0001 - S Urology Chronic renal Aug- AJIT S Inc, insufficiency AHMED. [facility] 2 30 [facility] [address], [place], [place], [address]. [address], [place] tel:[phone] tel:[phone] 0001 - S [facility] ZARRINI Referring S Inc, [facility] CHAVA. Provider: Sally Rios 2 [address] [facility]. [facility], [address]. [place], tel:[phone], [place] [address] tel:[phone] 0001 - [facility] Urology UPJ Aug- [employer]IT S Inc, obstruction, AHMED. [facility] acquired [address] [facility] [address], [place], [place], [place], [address]. [address], [place] tel:[phone] tel:[phone] 0001 - [facility] Primary Gout NOSGout May- [facility] Inc, Care NOS SHARIF. [place] 2 [address] A Sean [address] [place], [facility] [address]. [place], tel:[phone], [place] [address] tel:[phone] 0001 - S Primary Gout NOS Apr- PONTICIELLO S Inc, Care SHARIF. Gabriel 2 116 A Sean Cummins [facility], [facility] [address]. [place], tel:[phone], [place] [address] tel:[phone] [phone] 0001 - S Walk-In Open Apr-0 WALKER Referring S Inc, Center woundWound 5 RADHA. 1302 Provider: 33- Gabriel open, scalp [address], [facility] [place], [place], [place], [address]. [place] und open, site tel:[phone] [place], NOS w/o [address], [place] complicationWo tel:+60 und open, site [id number] NOS w/o complication 0001 - S Primary GoutGout NOS Calvin- PONTICIELLO S Inc, Care 2-201 SHARIF. Gabriel 2 116 A [facility], [place], [place] [address]. [place], tel:[phone], [place] [address] tel:[phone] 0001 - S Primary Gout May- PONTICIELLO S Inc, Care NOSHypertensio 6201 SHARIF. Gabriel n, essential 2 116 A [place] NOSScreening [facility], for viral [place], [place] disease [address]. [place], NECGout tel:[phone], [place] NOSHypertensio [address] tel:+60 n, essential [id number] NOS 0001 - [facility] Gout NOSGout February-0 WALKER Referring S Inc, Center NOSGout NOS 8 RADHA. 1302 Provider: [place] [address], [facility] Gabriel, [place], [address]. [place] tel:[phone] [place], [address], [place] tel:[phone] 0001 - S Urology Hypertension, AJIT S Inc, essential NOS 9-201 AHMED. [facility] 2 30 [facility] [address], [place], [place], [place], [address]. [address], [place] tel:+[phone] tel:[phone] 0001 - [facility] Primary Dermatophytosi Nov-1 [facility] Inc, Care s, scalp and 8 SHARIF. [place] beardHypertens 1 [address] Sean ion, essential [address], [place], NOSDermatitis [place], [place] NECDermatophyt [address]. [place], osis, scalp tel:[phone], [place] [address] tel:+60 beardHypertens [id number] ion, essential NOS 0001 - S Primary Dermatophytosi Nov-1 [facility] Inc, Care s, scalp and SHARIF. Gabriel beardHypertens 1 [address] A Sean ion, essential [address], Street, NOSRetention, [place], [place] urine [address]. [place], NOSChronic tel:[phone], [place] Kidney [address] tel:+60 Disease, Stage [id number] IV (severe)Dermat ophytosis, scalp and beardHypertens ion, essential NOSRetention, urine NOS 0001 - [facility] Walk-In Urinary Oct- Referring S [facility], Center retentionReten Provider: Sally Gabriel tion, urine 1 NDWI [place], [address], [place] tel:[phone] 0001 - [facility] Walk-In GoutGout NOS Sep-[address] [facility], Center 1 RADHA. 1302 Provider: Sally [place] 1 E [facility], [facility] Sean Rios, [place], [address]. [place] tel:+[phone] [place], [address], [place] tel:[phone] 0001 - [facility] Primary Tinea Aug- [facility] Referring S Inc, Care capitisCerumen SHARIF. Provider: 33Yemi Gabriel impactionDerma 1 116 A SHARIF Estrada tophytosis, [address], [place] [address], scalp and [place], [place], , [address] beardImpacted [id number]. [place], [place], cerumen tel:[phone] [address], [address], [place] [address] [place], [place], tel:[phone] tel:[phone] - [facility] Walk-In Urinary Tract LOWRIPk MOSELEY. Referring [facility], Center InfectionUreth [facility] 4433 Provider: Sally Rios ritis [address] [facility] NECUrethritis E, Leonard, GABRIEL. [place], [place], [address]. Davon NEC tel:[phone] [place], [address], [place] tel:[phone] - [facility] Walk-In DysuriaDysuria WALKER Referring [facility], Center RADHA. 1302 Provider: Sally Kaplanicott [address] , [facility] [place], [address]. [address] tel:[phone] [place], [address], [place] tel:[phone] - [facility] Walk-In Bleeding Calvin- WALKER Referring [facility], Center noseEpistaxis RADHA. 1302 Provider: Sally [place] [address] [facility], [facility] [place], [address]. Davon tel:[phone] [place], [address], [place] tel:[phone] - [facility] Primary Hypertension, Apr-0 [facility] Referring [facility], Care essential SHARIF. Provider: Sally Rios NOSChronic 1 [address] SHARIF Estrada Kidney [facility], [facility], Disease, Stage [place], [place], , [address] [place] [address]. [place], [place], (severe)Dermat tel:[phone] [facility], [address], [place] itis NOS [address] [place], [place], tel:[phone] tel:[phone] - [facility] Walk-In Urethritis Apr-0 LOWFELICIA MOSELEY. Referring [facility], Center NECOrchitis/ep [facility] 4433 Provider: 33-57 [place] ididymitis [address] NDWI Sean NOSUrethritis E, Leonard, GABRIEL. Street, NECOrchitis/[place], [address]. [place] ididymitis NOS tel:[phone] [place], [address], [place] tel:[phone] - [facility] Primary Chronic renal Feb- S Inc, Care [address] St disease, stage 4-201 [address], ertensionFoot [place] pain, [place], [address], [place] tel:[phone] 2019 - [facility] Primary Calvin-2 MICHAEL S Inc, Care 5-200 [address]. [place] [address], Sean Floor [address], Street, [facility], [address]. [place], tel:[phone], [place] [address] tel:[phone] 2019 - [facility] Primary Disorder, Calvin- MICHAEL S Inc, Care psychosexual 4-200 [address]. [place] NOSRenal [address], Sean failure, acute Floor 5, Street, [facility], [address]. [place], [place], tel:[phone], [place] [address] tel:[phone] Family History Family Member Diagnosis Age At [...] Record Payers Payer name Insurance type Covered alliance party ID Authorization(s) Blake Malik [facility] He [id number] Medicaid [facility] He [id number] Social History Type Description Quantity Date Captured [...] Physical Therapy Ordered: Referrals: Physical Therapy. 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 Evaluate and treat Referral Ordered: ordered Transplant Surgery (related to Chronic kidney disease, stage 5) Referral Ordered: ordered Referrals: Transplant Surgery. Evaluate and treat Appointment date/timeframe: 4 Weeks Referral Ordered: ordered Transplant Surgery AT [facility] Appointment date/timeframe: 4 Weeks Referral Ordered: ordered Referrals: Orthopedic Surgery. Evaluate and treat Appointment date/timeframe: 10/20/2018 Referral Ordered: ordered CT Abdomen & Pelvis w/o Contrast Appointment date/timeframe: 10/05/2018 Referral Ordered: ordered U/S Arterial Duplex upper extremity unilateral specify side Left Appointment date/timeframe: Stat Referral Ordered: ordered U/S Vascular Vein Mapping Hemodialysis Appointment date/timeframe: Today Referral Referred To: ordered JOHAN COYLE [address], [address] [phone] Ordered: Vascular Surgery REFERRAL WITH JOHAN COYLE AT [facility] Surgery - Vascular Appointment date/timeframe: 1 [...] Referral Referred To: ordered FLORY RODRIGUEZ [address] [place], [address] [phone] Ordered: FLORY RODRIGUEZ. Nephrology. Consult and treat. Appointment date/timeframe: 12/29/2010 Referral Referred To: ordered MARTY CAMACHO [facility] [address] [place], [address] [phone] Ordered: MARTY CAMACHO. Urology. Consult and treat. Appointment date/timeframe: 12/16/2010 Appointment EDWIN RODRIGUEZ CANCELLED Appointment EDWIN RODRIGUEZ CANCELLED Unknown Immunization Influenza, injectable, quadrivalent, preservative ordered [...] blood pressure at your apt with Dr Jayaramen, He will continue to adjust your medications. continue lwo protein diet. Please have labs done, please follow up with me after your apts with specialists so we can follow up on their plan. Schedule apt in 1 month. HIV testing is non-reactive in the Related to Encounter for screening for office. Thank you for choosing the other viral diseases [facility] Walk In. We hope that you [...] transportation - Thank you for choosing the [facility] Walk In. We hope that you [...] your kidney functions decreasing Continue care of community pharmacist, Related to Chronic kidney disease, fistula site healing well stage 4 (severe) Avoid sexual intercourse until Related to Dysuria cultures return.For future encounters pelase have safe sex.Follow up with primary doctor, urologist, and community pharmacist - Thank you for choosing the [facility] Walk In. We hope that you [...] follow up Related to Other prostatic with community pharmacist, and urologist as inflammatory diseases scheduled Cream faxed Related to Tinea unguium Patient scheduled for left AVF Related to Chronic kidney disease, creation with Dr. Coyle. Vein stage 5 mapping ordered see educational handouttake Related to Gout of big toe medication as directed - Thank you for choosing the [facility] Walk In. We hope that you [...] to ER. Thank you for choosing the [facility] Walk In. We hope that you [...] 2-3 days. Thank you for choosing a [facility] Walk In. 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 We hope that you will [...] primary care provider, ask at the front office attendant for a list of local providers who [...] come to follow up We will consider community pharmacist Related to Chronic renal insufficiency referral after [...] choosing the Related to Chronic Kidney Disease, Gabriel/[place] Stage IV (severe) Walk In. We hope [...]
--- OUTSIDE RECORDS SUMMARY | 2020-01-06 15:47 | XMS REPORT | Continuity of Care Document ---
:1975 Author Organization 0001 - S [employer] Address [address] [place] [address] Phone Care Team Providers Name Role Phone PRADIP PITT Unavailable Unavailable Allergies, Adverse Reactions, Alerts Substance Reaction Status Substance Type Unknown WARNIN allergy(ies) could not be collected because the type is not supported. Please contact [facility] for further details. Medications Medication Instructions [...] kidney disease w - stg 1-4/unsp chr nitesh Nicotine dependence, cigarettes, - uncomplicated Chronic kidney [...] For Visit Copied on Encounter 0001 - [facility] Ortho Superior Castro-0 ISABELLA MOSELEY. [facility], Ctr Ortho glenoid labrum [facility] 4433 33-57 lesion of [address] [place] right , [place], [place], [facility], [address]. [place] tel:[phone] [place], [address], [place] tel:[phone] 0001 - S Ortho Castro-0 GALVAN S Inc, Ctr Ortho 6202 JYOTSNA. [facility] 33-57 [address] [place], [place] [address]. [place], tel:[phone], [place] [address] tel:[phone] 0001 - S Primary Chronic right Castro-0 TREADWELL S Inc, Care [place] shoulder 3- DANISHA. [facility] 33-57 [facility] painOther 0 [facility], painDysuriaEre [place], [place], [place] ctile [address]. [place], dysfunction, tel:[phone], [place] unspecified [address] tel:+[phone] erectile [phone] dysfunction type 0001 - S Primary Castro-0 TREADWELL [facility], Care [place] 2-202 DANISHA. 507 33-57 [address] , [place], [place], [place] [address]. [place], tel:[phone], [place] [address] tel:[phone] 0001 - [facility] Primary Nov- AMELIA GRACE. [facility], Care [place] 1-[address] [place] [address] [address] [place], [place], Street, [address]. [place] tel:[phone] [place], [address], [place] tel:[phone] 0001 - [facility] Chronic kidney Sep-1 MICHAEL [facility], Nephrology disease, stage 9-201 [facility]. 5Hyp chr 9 [address] [place], [place] kidney disease Floor 5, Street, w stage 5 chr [place], [place], [address]. [place], [place], or tel:[phone], [place] ESRDSecondary [address] tel:60 hyperparathyro [phone] idism of renal originAnemia in chronic kidney diseaseUnspeci fied hydronephrosis Personal history of nicotine dependence 0001 - [facility] Primary Chronic kidney Sep-1 AMELIA GRACE. [facility] Inc, Care [place] disease, stage 8-[address] [place] [address] 5Hypertension 9 [facility] secondary to [place], [place], [place], other renal [address]. [place] disordersOther tel:[phone] [place], specified [address], [place] disorders of tel:60 kidney and [id number] ureterPre-op evaluationSupe rior glenoid labrum lesion of right shoulder, subs 0001 - [facility] Primary Encounter for [facility] Inc, Care [place] immunization 1- SHARIF. [facility] 9 7 [facility], [facility], Street, [place], [place], [address]. [address], [place] tel:+[phone] tel:[phone] 0001 - [facility] Ortho Superior Calvin-0 GALVAN S Inc, Ctr Ortho glenoid labrum 4-201 JYOTSNA. [facility] 57 lesion of 9 4433 [facility] right [address], Street, shoulder, [place], [place], [place] subsOther [address]. [place], sprain of tel:[phone], [place] right shoulder [address] tel:+[phone] joint, [phone] subsequent encounter 2019 - [facility] Primary Separation of Feb-1 MILE S Inc, Care [place] right 9OctE. 50 City acromioclavicu 9 [facility], [place] lar joint, [place] Street, subsequent [place], [place] encounter [address]. [place], tel:[phone], [place] [address] tel: [phone] 0001 - [facility] Chronic kidney Feb- MICHAEL [facility] Inc, Nephrology disease, stage 5-201 FLORY. -57 [place] 5Hyp chr 9 [address], [place] kidney disease Floor 5, Street, w stage 5 chr [place], [place], [address]. [place], [place], or tel:[phone], [place] ESRDSecondary [address] tel: hyperparathyro [phone] idism of renal originAnemia in chronic kidney diseasePersona l history of nicotine dependence 2019 - [facility] Ortho Superior Feb- GALVAN S Inc, Ctr Ortho glenoid labrum JYOTSNA. [facility] lesion of 9 [address] [facility] [address], Street, shoulder, [place], [place], [place] subsUnspecifie [address]. [facility], d sprain of tel:[phone], [place] right shoulder [address] tel: joint, subs [phone] encntrElevated blood-pressure reading, w/o diagnosis of htn 2019 - [facility] Urology Chronic kidney Feb-0 IOFFE [facility] Inc, disease, stage 8-[address] 5Erectile 9 [facility], [place] dysfunction [address], Street, due to [place] diseases [facility], [facility], [place] [address]. [address], [place] elsewhereObstr tel:[phone] tel: uctive [phone] uropathy 0001 - [facility] Primary Essential Feb-0 TREADWELL S Inc, Care [place] hypertensionES 7- DANISHA. 50 33[address] (end stage [address] , [place] renal [facility], [place], [facility], disease)Chroni [place], [place], [place] c right [address]. [place], shoulder tel:[phone], [place] painHyp chr [address] tel:+60 kidney disease [phone] w stage 5 chr kidney disease or ESRDPersonal history of nicotine dependence 0001 - S Primary End stage 2 MILE S Inc, Care [place] renal disease -OctE. 507 33-57 [facility] 9 [facility], [facility], [place], [place] [address]. [place], tel:[phone], [place] [address] tel:+ [phone] 0001 - [facility] Pain in right LOWRIE PRADIP. S Inc, Ctr O Rad shoulderElevat - S 4433 33-[address] Delmi blood-pressure E, [place], [place], [place] maria, [place], [address]. [place] diagnosis of tel:[phone] [place], htn [address], [place] tel:[phone] 0001 - [facility] Orth[facility] Right anterior LOWRIE PRADIP. S Inc, Ctr Ortho shoulder pain S 4433 33-[address] [address], [place], [place], [address]. [place] tel:[phone] [place], [address], [place] tel:[phone] 0001 - S Primary Chronic kidney MILE S Inc, Care [place] disease, stage 5-201 DANISHA. 507 33-57 [facility] 9 [facility], [facility], p chr kidney [place], [place] w [address]. [place], stage 5 chr tel:[phone], [place] kidney disease [address] tel:+60 or ESRD [phone] 0001 - S Ortho Pain in LOWRIE PRADIP. S Inc, Ctr Ortho unspecified - S 4433 33-[address], [place], [place], [address]. [place] tel:[phone] [place], [address], [place] tel:[phone] 0001 - S Ortho Pain in Oct-0 MANDY S Inc, Ctr Ortho unspecified 9-201 JYOTSNA. [facility] 33-57 shoulder 9 [address] [place] [address], Street, [place], [place] [address]. [place], tel:[phone], [place] [address] tel:[phone] 0001 - S Chronic kidney Castro-0 MICHAEL S Inc, Nephrology disease, stage 3-201 FLORY. 33-57 5Hyp chr 9 [address], [place] kidney disease Floor 5, Street, w stage 5 chr [place], [place], [address]. [facility], or tel:[phone], [place] ESRDUnspecifie [address] tel:+60 d [phone] hydronephrosis 0001 - S Primary Separation of Dec-2 TREADWELL [employer] [facility], Care [place] right 7-OctE. 50 [facility] acromioclavicu 8 [facility], sequelaChronic [place], [place] kidney [address]. [place], disease, stage tel:[phone], [place] 5Essential [address] tel:+[phone] hypertensionHy [phone] p chr kidney disease w stage 5 chr kidney disease or ESRD 0001 - S Urology Hydronephrosis Nov-2 IOFFE [employer] [facility], , unspecified 0-201 ED. 30 57 hydronephrosis 8 [facility] typeChronic [address], [place], kidney [facility] disease, stage [place], [place], [address]. [address], [place] (severe)Testic tel:+[phone] tel:+160 ular [phone] painImpotenceI ncomplete bladder emptyingNoctur ia 0001 - S Primary Nov-0 TREADWELL [employer] [facility], Care [place] 1-OctE. 507 [facility] 8 [facility], [place], [place] [address]. [place], tel:[phone], [place] [address] tel:[phone] 0001 - S Primary Chronic kidney Oct-2 TREADWELL [employer] [facility], Care [place] disease, stage 6-201 DANISHA. 50 [facility] 5Erectile 8 [facility], due to [facility] diseases [address]. [place], classified tel:[phone], [place] elsewhereEssen [address] tel: tial [phone] hypertensionHy pertensive chronic kidney disease w stg 1-4/unsp chr kdnyHyp chr kidney disease w stage 5 chr kidney disease or ESRD 0001 [facility] Walk-In Encounter for Sep-2 JAZMYN [facility], Center screening for 0-201 YENNI. 1302 E 33-57 Hardy other viral 6 [address] , [place] diseasesEncoun [facility], Street, [place], [address]. [place], human tel:[phone], [place] immunodeficien [address] tel:+60 cy virus [phone] [facility] - [facility] Primary Essential Aug-0 PONTICIELLO [facility], Care (primary) 5-201 SHARIF. 33-57 Hardy hypertensionCh 6 116 A [place] ronic kidney [facility], [place], disease, stage [place], [facility] 5Tinea [address]. [place], corporisHypert tel:[phone], [place] ensive chronic [address] tel:60 kidney disease [phone] w stg 1-4/unsp chr kdnyPersonal history of nicotine dependenceHyp chr kidney disease w stage 5 chr kidney disease or ESRD 0001 - [facility] Chronic kidney Han- QUASEM S [facility], Nephrology disease, stage 9-201 [place]. 57 5FSGS (focal 6 [address] [place] [address], Street, glomeruloscler [facility] [place], [address]. [place], [place], hypertensionOb tel:[phone], [place] structive [address] tel:+60 uropathyHyp [phone] chr kidney disease w stage 5 chr kidney disease or ESRDPersonal history of nicotine dependence 0001 - [facility] Surgery Arm numbness Calvin- LINDA S Inc, left 0-201 MYRANDA. 30 33-57 6 Delmilucien [facility], Street, [address], [place], [place], [place], [address], [place] [address]. tel:60 tel:[phone] 28901 0001 - [facility] Chronic kidney Calvin-0 QUASEM [employer], Nephrology disease, stage 9-201 [place]. 33-57 5Essential 6 [facility] [address] (primary) Ave Fl 5, Street, [place], [address]. [place], uropathyHyp tel:[phone], [place] chr kidney [address] tel:+60 disease w [phone] stage 5 chr kidney disease or ESRDPersonal history of nicotine dependence 0001 - [facility] Walk-In Left arm pain Calvin-0 TOKOS RONAL. [employer], Center [address] 33-57 Gabriel , [facility], [place], [address]. [place] tel:+[phone] [place], [address], [place] tel:[phone] 0001 - [facility] Primary Essential Mar-2 PONTICIELLO [employer] [facility], Care (primary) SHARIF. 33-57 Gabriel hypertensionCh 6 [address] ronic kidney [address], Street, disease, stage [place], [place], [place] 4 [address]. [place], (severe)Hypert tel:[phone], [place] ensive chronic [address] tel:+60 kidney disease [phone] w stg 1-4/unsp chr kdnyNicotine dependence, cigarettes, uncomplicated 0001 - [facility] Chronic kidney Mar-0 QUASEM [employer], Nephrology disease, stage 3-201 [place]. 3357 4 6 [facility] [address] (severe)Hypert Ave Fl 5, Street, ens[place], [address]. [place], CKD stage tel:[phone], [place] IVObstructive 12179 tel:+60 uropathyFocal [phone] segmental glomeruloscler osisNicotine dependence, cigarettes, uncomplicated 0001 - [facility] Walk-In DysuriaEncount Nov- TOKOS RONAL. [employer], Center er for [address] 33-57 Gabriel screening for 6 , [facility], Delmi other viral [place], [place], [place], [address]. [place] tel:[phone] [place], [address], [place] tel:[phone] 0001 - [facility] Primary Other PONTICIELLO S Inc, Care prostatic 7-201 SHARIF. 33-57 Hardy inflammatory 6 [address] A [place] diseasesTinea [address], Street, unguiumEssenti [place], [place], [place] al (primary) [address]. [place], hypertensionPe tel:[phone], [place] rsonal history [address] tel:+60 of nicotine [phone] dependence 0001 - [facility] Surgery Chronic kidney [facility] Inc, disease, stage 3-201 MYRANDA. 30 57 5 6 [facility], [place], [address], [place], [place], [address], [place] [address]. tel:+60 tel:[phone] 66002 0001 - [facility] Stage 5 QUASEM S Inc, Nephrology chronic kidney 8-201 [place]. 3357 disease due to 6 [facility] [address] [place] [address], Street, hypertensionCh [place], [place], [address]. [place], disease, stage tel:[phone], [place] 5Obstructive [address] tel:+60 uropathy [phone] 0001 - S Walk-In Gout of big TOKOS RONAL. S Inc, Center toe 7201 [address] 33[address], [facility], [place], [place], [address]. [place] tel:[phone] [place], [address], [place] tel:[phone] 0001 - S Walk-In TineaHypertens Dec-2 YARDE S Inc, Center ion 3-201 DAVINIA. 57 Gabriel 5 4417 Leonard [facility], [facility], [place], [place], [place], [address]. [address], [place] tel:[phone] tel:60 [phone] 0001 - [facility] Walk-In Dysuria Apr-0 [facility] Inc, Center 9-201 CED. 33-57 Gabriel 5 4417 [place], [place], [place], [address]. [address], [place] tel:[phone] tel:[phone] 0001 - [facility] Chronic Kidney Mar-1 S Inc, Nephrology Disease, Stage 2-201 33-57 Leonard IV 5 [place] (severe)[facility], [facility] UnspecifiedDis [place], ease, [address], [place] hypertensive tel:+[phone] renal NOS, w/o [phone] RF 0001 - [facility] Pain in Mar-0 BENTLEY [facility] Inc, Orthopedics shoulder 4- KIKI. [address] [facility], [facility], [address]. [place], tel:[phone], [place] [address] tel:[phone] 0001 - [facility] Walk-In Urinary Mar-0 YARDE S Inc, Center frequency 1-201 DAVINIA. 33-57 Hardy 5 4417 [place], [place], [place], [address]. [address], [place] tel:[phone] tel:[phone] 0001 - S Primary Pain in joint, Fe- PONTICIELLO S Inc, Care shoulder 4201 SHARIF. 33-57 Hardy [facility] 5 116 A [address] Iglesias, [place], essential NOS [facility] [address]. [place], tel:[phone], [place] [address] tel:+[phone] [phone] 0001 - [facility] Walk-In Chest pain Dec-0 [facility], Center 8201 33-57 Hardy 4 [place], [address], [place] tel:[phone] 0001 - [facility] Pain in joint, Nov- NINOSKA HENRY. S Inc, Orthopedics shoulder 6 30 [place] 33-[address], Street, [place], [place], [address]. [address], [place] tel:+[phone] tel:[phone] 0001 - S Urology [employer], scrotal Nov-1 PAREEK S Inc, 8-201 NATWAR. 30 33-57 4 [facility], [place], [address], [place], [place], [address], [place] [address]. tel:+60 tel:[phone] 99075 0001 - S Primary Shoulder pain Nov-1 HORNE [facility] Inc, Care 0-201 KHUSHBOO. 1302 E 33-57 Hardy 4 [facility], [facility], Street, [facility], 1928[facility]1983, [address]. [place], tel:[phone], [place] [address] tel:[phone] 0001 - Outpatient - Accidental Nov-0 [facility]ITAL[facility]ort[facility] Management S Inc, Other - [facility] fall NEC 7 SHARIF. 3357 4 116 A [place], [place], [facility] [address]. [place], tel:[phone], [place] [address] tel:[phone] 0001 - S Primary Shoulder Oct-3 HORNE S Inc, Care painWrist 1-201 KHUSHBOO. 1302 E 33-57 Hardy painHypertensi 4 [facility], [facility], essential [facility], Street, NOSAccidental [facility] fall on/[place], [address]. [place], stairs or tel:[phone], [place] steps NEC [address] tel:[phone] 0001 - S Primary Gout Oct-2 PONTICIELLO S Inc, Care NOSChronic 0-201 SHARIF. 33-57 Gabriel renal 4 116 A [place]mi Tomy [place], [place], esticular [facility] painHypertensi [address]. [place], on, essential tel:[phone], [place] NOS [address] tel:[phone] 0001 - S Walk-In Testicular Oct-0 ZARRINI S Inc, Center pain 7-201 CHAVA. 33-57 Gabriel 4 1302 E [facility], [facility], [place], [facility], [address]. [place], tel:[phone], [place] [address] tel:[phone] 0001 - S Walk-In Gout NOS Sep-2 [facility] 6-201 CHAVA. 33-57 Hardy 4 [address] [facility], [facility], [place], [facility], [address]. [place], tel:[phone], [place] [address] tel:[phone] 2019 - [facility] Walk-In Gout Sep-1 GIANGRIECO [facility], [place] NOSChronic 6-201 MONISHA. 33-57 Gabriel Kidney 4 [address] [place] Disease, Stage St, [place], [place] (severe) [facility], 1928[facility]1983, [address]. [place], tel:[phone], [place] [address] tel:[phone] 0001 - [facility] Primary Chronic Kidney May- [facility], Care Disease, Stage 3-201 KHUSHBOO. 1302 E 33-57 Hardy IV 4 Main [facility] (severe)Erecti SPC, [place], [facility] dysfunctionHy[facility]acon Behavioral [facility], [address]. [place], ertension, tel:[phone], [place] essential NOS [address] tel:[phone] 0001 - [facility] Walk-In UrethritisDisc Referring [facility] [place] harge, Provider: 33-57 Leonard urethral 4 WALKIN [place] LEONARD, [place], 44[address] LeonardFormerly [facility], [facility] [address], [place], [place], [place], [address], [place] [address]. tel:[phone] 2019 - [facility] Walk-In Dysuria Referring [facility] [place] Provider: 33-57 Gabriel 4 NDWI [facility] [place], [address], [place] tel:[phone] 2019 - [facility] Fx closed [facility], Orthopedics radius, GLEN. [facility] Henok headDislocatio 3 [address] Leonard Delmi n closed [address], [place], acromioclavicu [place], [place] larWrist [address]. [place], painAftercare, tel:[phone], [place] healing [address] tel:+60 traumatic fx, [phone] upper armAftercare, healing traumatic fx, lower arm 0001 - [facility] Radial head May- [facility], Orthopedics fractureAcromi GLEN. [facility] Henok oclavicular 3 [address], Street, separation [place], [place], [place] [address]. [place], tel:[phone], [place] [address] tel:[phone] 0001 - S Walk-In LumbagoLumbago Referring S [facility], Center Accidental Provider: Sally Zelaya fall NECPlace 3 NDWI [facility] [place], [address], [place] tel:[phone] 0001 - [facility] Urology Chronic renal [facility], insufficiency AHMED. [facility] [address], [place], [place], [place], [address]. [address], [place] tel:+[phone] tel:[phone] 0001 - S Walk-In LumbagoLumbago ZARRINI Referring S [facility], [facility] CHAVA. Provider: Sally Zelaya 2 [address] NDWI [facility], [facility]. [facility], [address]. [place], [place], tel:[phone], [place] [address] tel:[phone] 0001 - [facility] Urology UPJ May- AJIT [facility], obstruction, AHMED. [facility] acquired [address], [facility], [place], [place], [address]. [address], [place] tel:+[phone] tel:[phone] 0001 - [facility] Primary Gout NOSGout Aug- PONTICIELLO [facility] Inc, Care NOS 1-201 SHARIF. Gabriel 2 [address] [place] [place], [place], [place], [place], [place] [address]. [place], [place], tel:[phone], [place] [address] tel:[phone] 0001 - [facility] Primary Gout NOS Han-2 PONTICIELLO [facility], Care 4-201 SHARIF. Hardy 2 [address] [place], [place], [place], [place] [address]. [place], tel:[phone], [place] [address] tel:[phone] [phone] 0001 - [facility] Walk-In Open Apr-0 WALKER [facility], Center woundWound 5-201 RADHA. 1302 Provider: Gabriel open, scalp [address], [facility] Delmi w/o [place], [place], [place], [address]. [place] und open, site tel:[phone] [place], NOS w/o [phone], [place] complicationWo tel:+ und open, site [phone] NOS w/o complication 0001 - [facility] Primary GoutGout NOS Calvin- PONTICIELLO [facility], Care 2-201 SHARIF. Hardy 2 [address] [place], [place], [place], [place] [address]. [place], tel:[phone], [place] [address] tel:[phone] 0001 - [facility] Primary Gout May- PONTICIELLO S Inc, Care NOSHypertensio 6-201 SHARIF. Hardy n, essential 2 116 A Delmi NOSScreening [address] [place], [place], for viral [place], [place], [place] disease [address]. [place], NECGout tel:[phone], [place] NOSHypertensio [address] tel:+60 n, essential [phone] NOS 2019 - [facility] Walk-In Gout NOSGout WALKER Referring [facility], Center NOSGout NOS RADHA. 1302 Provider: 33Yemi Zelaya [address], NDWI [place], [address]. [place] tel:[phone] [place], [address], [place] tel:+ [phone] 0001 [facility] Urology Hypertension, AJIT S Inc, essential NOS AHMED. [facility] [address], [place], [place], [place], [place], [address]. [address], [place] tel:[phone] tel:[phone] [place] [address] Primary Dermatophytosi Nov- PONTICIELLO S Inc, Care s, scalp and SHARIF. Hardy beardHypertens 1 116 A Delmi ion, essential [address], [place], NOSDermatitis [place], [place], [place] NECDermatophyt [address]. [place], osis, scalp tel:[phone], [place] [address] tel:+60 beardHypertens [phone] ion, essential NOS 2019 - [facility] Primary Dermatophytosi Nov- PONTICIELLO S Inc, Care s, scalp and SHARIF. Gabriel beardHypertens 1 116 A [place] ion, essential [address], [place], NOS[facility]ention, [place], [place], [place] [address]. [place], [place], NOS[facility]ronic tel:[phone], [place] [address] tel:[phone] Disease, Stage [id number] IV (severe)Dermat ophytosis, scalp and beardHypertens ion, essential NOSRetention, urine NOS 2019 - [facility] Walk-In Urinary Jul- Referring S [facility], Center retentionReten Provider: [id number] Gabriel tion, urine 1 NDWI [place] NOS GABRIEL. [place], [place], [address], [place] tel:[phone] - [facility] Walk-In GoutGout NOS Sep-0 WALKER Referring [facility], Center 1- RADHA. 1302 Provider: Sally Hardy [address], JAYLENE [place], [place], [address]. [place] tel:[phone] [place], [phone], [place] tel:[phone] - [facility] Primary [facility] Referring [facility], Care capitisCerumen SHARIF. Provider: Sally Zelaya impactionDerma 1 [address] SHARIF Estrada tophytosis, [facility], [facility], scalp and [place], [place], , [address] [place] beardImpacted [address]. [place], [place], cerumen tel:[phone] [facility], [address], [place] [address] [place], [place], tel:[phone]. [phone] tel:[phone] - [facility] Walk-In Urinary Tract Apr- LOWRIE PRADIP. Referring [facility], Center InfectionUreth [facility] 4433 Provider: 33-Hung Zelaya ritis [address] NDTN [place] NECUrethritis E, [place], [place]. [place], [place], [address]. [place] PEREZ tel:[phone] [place], [address], [place] tel:[phone] - [facility] Walk-In DysuriaDysuria Apr- WALKER Referring [facility], Center 2-201 RADHA. 1302 Provider: Kori-Hung Hardy [address], JAYLENE [place], [address]. [place] tel:[phone] [place], [address], [place] tel:[phone] - [facility] Walk-In Bleeding Calvin- WALKER Referring [facility], Center noseEpistaxis RADHA. 1302 Provider: 33-[address], JAYLENE [place] Hardy, [place], [address]. [place] tel:[phone] [place], [address], [place] tel:[phone] 2019 - [facility] Primary Hypertension, Apr-0 [facility] Referring [facility], Care essential 6 SHARIF. Provider: 33-57 Gabriel NOSChronic 1 [address] SHARIFJOSTIN Estrada Kidney [address], [facility] Street, Disease, Stage [place], [place], , [address] [place] [address]. [place], [place], (severe)Dermat tel:[phone], [address], [place] itis NOS [address] [place], tel:[phone]. [phone] tel:[phone] - [facility] Walk-In Urethritis Apr-0 ISABELLA MOSELEY. Referring [facility], Center NECOrchitis/ep - [facility] 4433 Provider: 33-57 Gabriel ididymitis [address] NDWI Delmi NOSUrethritis E, [place], GABRIEL. Street, NECOrchitis/[place], [address]. [place] ididymitis NOS tel:[phone] [place], [address], [place] tel:[phone] - [facility] Primary Chronic renal Feb-2 [facility], Care [address] disease, stage IVErectile [address], ertensionFoot [place] pain, [place], [address], [place] tel:[phone] 2019 - [facility] Primary Calvin[facility] 5-200 [address]. [place] [address], [place] [address], Street, [facility], [address]. [place], [place], tel:[phone], [place] [address] tel:[phone] 2019 - [facility] Primary Disorder, Calvin-2 MICHAEL [facility], Care psychosexual 4-[address]. [place] NOSRenal [address], [place] failure, acute Floor 5, Street, NOS [facility], [address]. [place], [place], tel:[phone], [place] [address] tel:[phone] Family History Family Member Diagnosis Age At [...] type Covered alliance party ID Authorization(s) Blake [id number] Blake Malik d [id number] Medicaid [facility] [id number] Social History Type Description Quantity Date Captured [...] Physical Therapy Ordered: Referrals: Physical Therapy. Location: [facility] Tracing Lathe Set Up Operator & Rehab Ves. Evaluate and treat Referral [...] Referral Referred To: ordered JOHAN COYLE [address] [place], [address] [phone] Ordered: Vascular Surgery REFERRAL WITH JOHAN COYLE AT [facility] Surgery - Vascular Appointment date/timeframe: 1 Month [...] Referral Referred To: ordered FLORY RODRIGUEZ [address] [place], [address] [phone] Ordered: FLORY RODRIGUEZ. Nephrology. Consult and treat. Appointment date/timeframe: 12/29/2010 Referral Referred To: ordered MARTY CAMACHO [facility] [address] [place], [address] [phone] Ordered: MARTY CAMACHO. Urology. Consult and treat. [...] transportation - Thank you for choosing the [facility] Walk In. We hope that you will [...] your kidney functions decreasing Continue care of conference services manager, Related to Chronic kidney disease, fistula site healing well stage 4 (severe) Avoid sexual intercourse until Related to Dysuria cultures return.For future encounters pelase have safe sex.Follow up with primary doctor, urologist, and conference services manager - Thank you for choosing the [facility] Walk In. We hope that you will [...] increase morning dose, continue pm hypertension dose Cream faxed Related to Tinea unguium take antibiotic fully, follow up Related to Other prostatic with conference services manager, and urologist as inflammatory diseases scheduled Patient scheduled for left AVF Related to Chronic kidney disease, creation with Dr. Coyle. Vein stage 5 mapping ordered see educational handouttake Related to Gout of big toe medication as directed - Thank you for choosing the [facility] Walk In. We hope that you will [...] to ER. Thank you for choosing the [facility] Walk In. We hope that you will [...] 2-3 days. Thank you for choosing a [facility] Walk In. We hope and expect that [...] painless range of motion, endurance and function ([facility] PT Gabriel, front counter attendant to schedule).- He is not interested [...] to ER. Thank you for choosing the [facility] Walk In. We hope that you will [...] referral to Related to Hypertension, essential NOS ambulatory care coordinator Given your clinical presentation Related to Chest pain and physical exam, I am sending you to the emergency room to rule out heart infarct.Disclaimer:Thank you for using the [facility] walk-in. We hope that you will be [...] primary care provider, ask at the front counter attendant for a list of local providers [...] come to follow up We will consider conference services manager Related to Chronic renal insufficiency referral after [...] choosing the Related to Chronic Kidney Disease, [place] Stage IV (severe) Walk In. We hope [...]
--- OUTSIDE RECORDS SUMMARY | 2020-01-06 15:47 | XMS REPORT | Continuity of Care Document ---
:1975 Author Organization 0001 - [email or web address] M[facility] Address [address] [place] [address] Phone Care Team Providers Name Role Phone JYOTSNA GALVAN MD Unavailable Unavailable Allergies, Adverse Reactions, Alerts Substance Reaction Status Substance Type Unknown WARNIN allergy(ies) could not be collected because the type is not supported. Please contact [facility] for further details. Medications Medication Instructions [...] essential NOS - Chronic Procedures Procedure Date Office/outpatient visit,est, mod Results Test Name Date and Time Measure Units Reference Range Abnormal Flag Status Comments Unknown Encounters Encounter Practice Location Reason(s) Diagnoses Date Provider Providers Description For Visit Copied on Encounter 0001 - [facility] Ortho Superior GALVAN [employer], Ctr Ortho glenoid labrum JYOTSNA. [facility] lesion of 0 [address], Street, shoulder, [place], [place], [place] subsOther [address]. [place], [facility] tel:[phone], [place] painOther [address] tel:+60 articular [id number] cartilage disorders, right shoulderElevat ed blood-pressure reading, w/o diagnosis of htnIncomplete rotatr-cuff tear/ruptr of r shoulder, not trauma Office/outpa 0001 - S Ortho Right Superior ISABELLA [employer], Ctr Ortho shoulder- glenoid labrum [facility] 4433 visit,est, 3357 (chief lesion of [address] Sean complaint) right E, Leonard, [place], [place], [place], [address]. [place] tel:[phone] [place], [address], [place] tel:[phone] 0001 - [facility] Primary Chronic right Castro-0 TREADWELL S Inc, Care [place] shoulder 3-[address] [place] [address], [facility] Street, painDysuriaEre [place], [place] ctile [address]. [place], dysfunction, tel:[phone], [place] unspecified [address] tel:60 erectile [id number] dysfunction type 0001 - [facility] Primary Castro-0 TREADWELL S Inc, Care [place] 2-202 DANISHA. 507 [address] City [address], [facility], [place], [place] [address]. [place], tel:[phone], [place] [address] tel:[phone] [place] [address] Primary Nov- AMELIA GRACE. S Inc, Care [place] 1- [address] [place] [address] 9 [facility], [place], Street, [address]. [place] tel:+[phone] [place], [address], [place] tel:[phone] [place] [address] Chronic kidney Sep-1 MICHAEL S Inc, Nephrology disease, stage 9-201 [facility]. - 5Hyp chr 9 [address], [place] kidney disease Floor 5, Street, w stage 5 chr [place], [place], [address]. [place], or tel:[phone], [place] ESRDSecondary [address] tel:+60 hyperparathyro [phone] idism of renal originAnemia in chronic kidney diseaseUnspeci fied hydronephrosis Personal history of nicotine dependence 0001 - [facility] Primary Chronic kidney Sep-1 AMELIA GRACE. S Inc, Care [place] disease, stage 8-[address] [place] [address] 5Hypertension 9 [facility] secondary to [place], [place], Street, other renal [address]. [place] disordersOther tel:[phone] [place], specified [phone], [place] disorders of tel:+60 kidney and [id number] ureterPre-op evaluationSupe rior glenoid labrum lesion of right shoulder, subs 0001 - [facility] Primary Encounter for BAKARI S Inc, Care [place] immunization SHARIF. [facility] [address], Sean [facility], Street, [place], [place], [place], [address]. [address], [place] tel:[phone] tel:[phone] 0001 [facility] Ortho Superior Calvin-0 GALVAN S Inc, Ctr Ortho glenoid labrum 4-201 JYOTSNA. [facility] lesion of 9 [address], Street, shoulder, [place], [place] subsOther [address]. [place], sprain of tel:[phone], [place] right shoulder [address] tel:+60 joint, [id number] subsequent encounter 2019 [facility] Primary Separation of Nov- TREADWELL S Inc, Care [place] right DANISHA. [facility] acromioclavicu [address], [place] lar [facility], [facility], subsequent [place], [place] encounter [address]. [place], tel:[phone], [place] [address] tel:[phone] 0001 [facility] Chronic kidney Feb- MICHAEL S Inc, Nephrology disease, stage 5-201 [facility]. Leonard 5Hyp chr 9 [address], Sean kidney disease Floor 5, [place], stage 5 chr [facility] [place], [address]. [facility], [place], or tel:[phone], [place] ESRDSecondary [address] tel:60 hyperparathyro [phone] idism of renal originAnemia in chronic kidney diseasePersona l history of nicotine dependence 0001 - S Ortho Superior Feb-1 GALVAN [email or web address], Ctr Ortho glenoid labrum 1-201 JYOTSNA. [facility] 33 lesion of 9 [address], Street, shoulder, [place], [place] subsUnspecifie [address]. [place], d sprain of tel:[phone], [place] right shoulder [address] tel:+60 joint, subs [id number] encntrElevated blood-pressure reading, w/o diagnosis of htn 0001 - [facility] Urology Chronic kidney b-0 IOFFE S Inc, disease, stage 8-201 EDWARD. [address] [facility], [place] dysfunction [address], Street, due to [place] diseases [place], [place], [place] [address]. [address], [place] elsewhereObstr tel:[phone] tel:+ uctive [phone] uropathy 0001 - [facility] Primary Essential Nov-0 TREADWELL S Inc, Care [place] hypertensionES 7-OctE. [facility] -[address] (end stage 9 [facility], [place] renal [facility], disease)Chroni [place], [place] c right [address]. [place], shoulder tel:[phone], [place] painHyp chr [address] tel:+60 kidney disease [id number] w stage 5 chr kidney disease or ESRDPersonal history of nicotine dependence 0001 - [facility] Primary End stage Oct- TREADWELL S Inc, Care [place] renal disease -OctE. [facility] 57 City 9 [facility], [place] [address], [place], [place] [address]. [place], tel:[phone], [place] [address] tel:+ [phone] 0001 - [facility] Ortho Pain in right LOWRIE PRADIP. [facility] Inc, Ctr O Rad shoulderElevat 6- [facility] 4433 33-[address] [place] blood-pressure E, [facility], [place], [address]. [place] diagnosis of tel:+[phone] [place], htn [address], [place] tel:[phone] 0001 - S Ortho Right anterior LOWRIE PRADIP. S Inc, Ctr Ortho shoulder pain - [facility] 4433 33-[address] Sean E, [place], [place], [address]. [place] tel:+[phone] [place], [address], [place] tel:[phone] 0001 - S Primary Chronic kidney TREADWELL S Inc, Care [place] disease, stage 5-201 DANISHA. 507 57 [facility] 5Essential 9 [facility], Sean hypertensionHy [address], p chr kidney [place], [place] [address]. [place], stage 5 chr tel:[phone], [place] kidney disease [address] tel:+60 or ESRD [id number] 0001 - S Ortho Pain in LOWRIE PRADIP. S Inc, Ctr Ortho unspecified S 4433 33-[address] Sean E, [place], [place], [address]. [place] tel:+[phone] [place], [address], [place] tel:+60 [phone] 0001 - S Ortho Pain in GALVAN S Inc, Ctr Ortho unspecified JYOTSNA. [facility] 33-57 shoulder 9 [address], [place], [place], [place] [address]. [place], tel:[phone], [place] [address] tel:+60 [phone] 0001 - S Chronic kidney MICHAEL S Inc, Nephrology disease, stage 3-201 [facility]. 33-57 5Hyp chr [address], Sean kidney disease Floor 5, Street, w stage 5 chr [place], [place], [address]. [place], or tel:[phone], [place] ESRDUnspecifie [address] tel:+60 d [phone] hydronephrosis 0001 - [facility] Primary Separation of Sep- MILE S Inc, Care [place] right . 507 33-57 City acromioclavicu 8 [facility], [place] lar joint, [facility], sequelaChronic [place], [place] [address]. [place], disease, stage tel:[phone], [place] 5Essential [address] tel:+60 hypertensionHy [id number] p chr kidney disease w stage 5 chr kidney disease or ESRD 0001 - S Urology Hydronephrosis Nov-2 IOFFE S Inc, , unspecified 0-201 EDWARD. 30 33-[address], Sean typeChronic [address], Street, kidney [facility] disease, stage [facility], [place], [place], [place], [address]. [address], [place] (severe)Testic tel:+[phone] tel:+60 ular [phone] painImpotenceI ncomplete bladder emptyingNoctur ia 0001 [facility] Primary Nov-0 TREADWELL S Inc, Care [place] 1-OctE. 507 33-57 City 8 [facility], [place], [place] [address]. [place], tel:[phone], [address] tel:+60 [phone] 0001 [facility] Primary Chronic kidney Oct- TREADWELL [facility], Care [place] disease, stage 6-201 DANISHA. 507 33-57 [facility] 5Erectile 8 [facility], due to [facility] diseases [address]. [place], classified tel:+[phone], elsewhereEssen [address] tel:+60 tial [phone] hypertensionHy pertensive chronic kidney disease w stg 1-4/unsp chr kdnyHyp chr kidney disease w stage 5 chr kidney disease or ESRD 0001 [facility] Walk-In Encounter for Jun- JAZMYN [facility], Center screening for 0-201 YENNI. 1302 E 33-57 Allen other viral 6 [facility] Center[facility], [place], [place], [address]. [place], human tel:[phone], [place] immunodeficien [address] tel:+160 cy virus [phone] 0001 [facility] Primary Essential Aug-0 [facility], Care (primary) 5-201 SHARIF. 33-57 Allen hypertensionCh 6 116 A [place] ronic kidney [facility], disease, stage [place], [place], [place] 5Tinea [address]. [place], corporisHypert tel:[phone], ensive chronic [address] tel:+1-60 kidney disease [id number] w stg 1-4/unsp chr kdnyPersonal history of nicotine dependenceHyp chr kidney disease w stage 5 chr kidney disease or ESRD 0001 [facility] Chronic kidney Apr- QUASEM [facility], Nephrology disease, stage 9-201 [place]. 33-57 5FSGS (focal 6 [facility] [address] [facility] [address], Street, glomeruloscler [facility] [place], [address]. [place], hypertensionOb tel:[phone], [place] structive [address] tel:+60 uropathyHyp [id number] chr kidney disease w stage 5 chr kidney disease or ESRDPersonal history of nicotine dependence 0001 - [facility] Surgery Arm numbness Calvin-1 LINDA S Inc, left 0-201 MYRANDA. 30 -57 6 [facility], [place], [address], [place], [place], [place], [address], [place] [address]. tel:60 tel:[phone] 20470 0001 - [facility] Chronic kidney Calvin-0 [facility], Nephrology disease, stage 9-201 [place]. 5Essential 6 [facility] [address] (primary) Ave Fl 5, Street, hypertensionOb [facility] [place], [address]. [place], uropathyHyp tel:[phone], [place] chr kidney [address] tel:+60 disease w [id number] stage 5 chr kidney disease or ESRDPersonal history of nicotine dependence 0001 - [facility] Walk-In Left arm pain Calvin-0 TOKOS RONAL. iPling, Center 6[address], [facility], [facility], [place], [address]. [place] tel:+[phone] [place], [address], [place] tel:60 [phone] 0001 - [facility] Primary Essential Mar-2 PONTICIELLO S Inc, Care (primary) 8201 SHARIF. 33-57 Gabriel hypertensionCh 6 116 A [place] ronic kidney [address], [place], disease, stage Leonard, [facility] 4 [address]. [place], (severe)Hypert tel:[phone], [place] ensive chronic 58519 tel:+160 kidney disease [id number] w stg 1-4/unsp chr kdnyNicotine dependence, cigarettes, uncomplicated 0001 - [facility] Chronic kidney Mar-0 QUASEM S [facility], Nephrology disease, stage 3-201 [place]. 33-57 4 6 S [address] (severe)Hypert Ave Fl 5, Street, ensive [place], [address]. [place], CKD stage tel:[phone], [place] IVObstructive [address]293 tel:+60 uropathyFocal [id number] segmental glomeruloscler osisNicotine dependence, cigarettes, uncomplicated 0001 - [facility] Walk-In DysuriaEncount TOKOS RONAL. [employer], Center er for [address] 33-57 Gabriel screening for 6 St, [facility] PEDRAZA other viral [place], [place], [place], [address]. [place] tel:[phone] [place], [address], [place] tel:[phone] 0001 - [facility] Primary Other PONTICIELLO S M[facility], Care prostatic SHARIF. 3357 Allen inflammatory 6 [address]inea [address], Street, unguiumEssenti [place], [place] al (primary) [address]. [place], hypertensionPe tel:[phone], [place] rsonal history [address] tel:+60 of nicotine [id number] dependence 0001 - [facility] Surgery Chronic kidney [facility], disease, stage 3-201 MYRANDA. 30 57 5 6 Sean [address] [place], Street, [address], [place], [place], [place], [address], [place] [address]. tel:+60 tel:[phone] 92463 0001 - [facility] Stage 5 [employer], Nephrology chronic kidney 8-201 [place]. 33-57 disease due to 6 [facility] [address], Street, hypertensionCh [place], [address]. [place], disease, stage tel:[phone], [place] 5Obstructive [address] tel:+160 uropathy [phone] 0001 - [facility] Walk-In Gout of big Castro-0 TOKOS RONAL. [employer], Center toe 7-201 [address], [facility], [facility], [place], [address]. [place] tel:[phone] [place], [address], [place] tel:[phone] 0001 - S Walk-In TineaHypertens Dec-2 [facility] Inc, Center ion 3-201 DAVINIA. Gabriel 5 [facility]7 [facility], [place], [place], [place], [address]. [address], [place] tel:+[phone] tel:[phone] 0001 - S Walk-In Dysuria Apr-0 [facility] Inc, Center 9-201 CED. [address] [place] [address], [place], [place], [place], [address]. [address], [place] tel:+[phone] tel:[phone] 0001 - S Chronic Kidney Mar-1 S Inc, Nephrology Disease, Stage 2-201 [address] IV 5 [place] (severe)[facility] UnspecifiedDis [place], [place], [address], [place] hypertensive tel:+60 renal NOS, w/o [id number] RF 0001 - S Pain in Mar-0 BENTLEY S Inc, Orthopedics shoulder 4-201 KIKI. 93 33-[address], [facility], [facility], [address]. [place], tel:[phone], [place] [address] tel:[phone] 0001 - S Walk-In Urinary Mar-0 [facility] Inc, Center frequency 1-201 DAVINIA. 57 [address] [place] [address], [place], [place], [address]. [address], [place] tel:[phone] tel:[phone] 0001 - S Primary Pain in joint, Nov- PONTICIELLO S Inc, Care shoulder 4-201 SHARIF. 3357 Allen regionHyperten 5 116 A Tra [facility]iasFill[facility] Community Medical Centerpk, [place], essential [facility] [address]. [place], tel:[phone], [place] [address] tel:[phone] 0001 - [facility] Walk-In Chest pain Dec-0 [facility], Center Allen 4 [place], [address], [place] tel:[phone] 0001 - [facility] Pain in joint, Nov-2 NINOSKA HENRY. [facility], Orthopedics shoulder 30 [place] 3357 [facility] 4 [place], [place] [address], [place], [place], [place], [address]. [address], [place] tel:[phone] tel:[phone] 0001 - [facility] Urology Varix, scrotal Nov- PAREEK [facility], NATWAR. 30 4 [facility], [place], [address], [place], [place], [place], [address], [place] [address]. tel:+60 tel:[phone] 11445 0001 - [facility] Primary Shoulder pain Nov-1 ON LICENSE OF [facility], Care 0-201 KHUSHBOO. 1302 E -57 Allen 4 [facility], [facility], [address]. [place], tel:[phone], [place] [address] tel:[phone] 0001 - Outpatient - Accidental Nov-0 PONTICIELLO S Inc, Other - [facility] fall NEC 7- SHARIF. 57 4 [address], [place], [place] [address]. [place], tel:[phone], [place] [address] tel:[phone] 0001 - [facility] Primary Shoulder Oct-3 HORNE S Inc, Care painWrist 1-201 KHUSHBOO. 1302 E 33-57 Allen painHypertensi 4 [facility], [facility], Street, NOSAccidental [facility] [place], [address]. [place], stairs or tel:[phone], [place] steps NEC [address] tel:[phone] 0001 - S Primary Gout Oct-2 PONTICIELLO S Inc, Care NOSChronic 0-201 SHARIF. 33-57 Gabriel renal 4 116 A [place] insufficiencyT [facility], [place], esticular [place], [place] painHypertensi [address]. [place], on, essential tel:[phone], [place] NOS [address] tel:[phone] 0001 - S Walk-In Testicular Oct-0 ZARRINI S Inc, Center pain 7-201 CHAVA. 33-57 Allen 4 [address] [facility], [facility], [place], [facility], [address]. [place], tel:[phone], [place] [address] tel:[phone] 0001 - S Walk-In Gout NOS Sep-2 ZARRINI S Inc, Center 6-201 CHAVA. 33-57 Allen 4 [address] [facility], [facility], [place], [facility], [address]. [place], tel:[phone], [place] [address] tel:[phone] 0001 - S Walk-In Gout Sep-1 GIANGRIECO S Inc, Center NOSChronic 6-201 MONISHA. 33-57 Gabriel Kidney 4 [address] [place] Disease, Stage St, Street, IV (severe) [facility], [address]. [place], tel:[phone], [place] [address] tel:[phone] 0001 - S Primary Chronic Kidney May-2 HORNE S Inc, Care Disease, Stage 3-201 KHUSHBOO. 1302 E 33-57 Gabriel IV 4 [address] , [place] (severe)Erecti SP, Street, [place], [address]. [place], ertension, tel:[phone], [place] essential NOS [address] tel:[phone] 0001 - [facility] Walk-In UrethritisDisc Referring S [facility], [place] harge, Provider: Sally Leonard urethral 4 WALKIN Sean [place], Street, [address] [place], [place], [place], [address], [place] [address]. tel: [phone] 2019 - [facility] Walk-In Dysuria Referring S [facility], Center Provider: Sally Allen 4 [address]DW[place], [address], [place] tel: [phone] 2019 - [facility] Fx closed [facility], Orthopedics radius, GLEN. [facility] [place] headDislocatio 3 44[address] [facility] n closed [address], [place], acromioclavicu [place], [place] larWrist [address]. [place], painAftercare, tel:[phone], [place] healing [address] tel:60 traumatic fx, [id number] upper armAftercare, healing traumatic fx, lower arm 0001 - [facility] Radial head [facility], Orthopedics fractureAcromi GLEN. [facility] Henok oclavicular 3 [address], Street, [place], [place] [address]. [place], tel:[phone], [place] [address] tel: [phone] 0001 - S Walk-In LumbagoLumbago Referring S Inc, Center Accidental Provider: Sally Gabriel fall NECPlace 3 NDWI Sean [facility], [address]. Street, [place], [address], [place] tel: [phone] 0001 - [facility] Urology Chronic renal AJIT S Inc, insufficiency AHMED. [facility] [address], [place], [place], [place], [address]. [address], [place] tel:[phone] tel:[phone] 0001 - S Walk-In LumbagoLumbago Nov- ZARRINI Referring S Inc, Center LumbagoLumbago 9 CHAVA. Provider: Carlene Allen 2 [address] [facility], [facility], GABRIEL. Street, [facility], [address]. [place], tel:[phone], [place] [address] tel:[phone] 0001 - S Urology UPJ May- AJIT S Inc, obstruction, 7201 AHMED. [facility] acquired 2 30 [facility] [address], [place], [place], [place], [address]. [address], [place] tel:+[phone] tel:[phone] 0001 - S Primary Gout NOSGout [facility] S Inc, Care NOS 1 SHARIF. Gabriel 2 116 A [facility], [place], [place] [address]. [place], tel:[phone], [place] [address] tel:[phone] 0001 - S Primary Gout NOS Apr- PONTICIELLO S Inc, Care 4201 SHARIF. Allen 2 116 A [facility], [place], [place] [address]. [place], tel:[phone], [place] [address] tel:[phone] 0001 - S Walk-In Open Apr-0 WALKER Referring S Inc, Center woundWound 5-201 RADHA. 1302 Provider: - Gabriel open, scalp [address] , [facility] w/o Gabriel, GABRIEL. [place], [facility], [address]. [place] und nanette, site tel:[phone] [place], NOS w/o [address], [place] complicationWo tel:60 und open, site [id number] NOS w/o complication 0001 - S Primary GoutGout NOS Calvin- PONTICIELLO S Inc, Care 2-201 SHARIF. Allen 2 [address], [place], [place], [place] [address]. [place], tel:[phone], [place] [address] tel:[phone] 0001 - S Primary Gout February- PONTICIELLO S Inc, Care NOSHypertensio 6-201 SHARIF. Gabriel n, essential 2 116 A Sean NOSScreening [facility], [place], for viral [place], [place] disease [address]. [place], NECGout tel:[phone], [place] NOSHypertensio [address] tel:+[phone] n, essential [phone] NOS 0001 - S Walk-In Gout NOSGout February- WALKER Referring S Inc, Center NOSGout NOS 8201 RADHA. 1302 Provider: - Gabriel 2 E [facility] Gabriel, [place], [address]. [place] tel:[phone] [place], [address], [place] tel:[phone] 0001 - [facility] Urology Hypertension, AJIT S Inc, essential NOS 9-201 AHMED. [facility] 57 2 30 [facility] [address], [place], [place], [place], [place], [address]. [address], [place] tel:[phone] tel:[phone] 0001 - S Primary Dermatophytosi Nov- PONTICIELLO S Inc, Care s, scalp and 8201 SHARIF. Allen beardHypertens 1 [address] A Sean ion, essential [address], [place], NOSDermatitis [place], [place] NECDermatophyt [address]. [place], osis, scalp tel:[phone], [place] and [address] tel:+[phone] beardHypertens [phone] ion, essential NOS 0001 - S Primary Dermatophytosi Nov-1 PONTICIELLO S Inc, Care s, scalp and 4201 SHARIF. 33-57 Gabriel beardHypertens 1 [address] A Sean ion, essential [address], [place], NOSRetention, [place], [place] urine [address]. [place], NOSChronic tel:[phone], [place] Kidney [address] tel:+60 Disease, Stage [id number] IV (severe)Dermat ophytosis, scalp and beardHypertens ion, essential NOSRetention, urine NOS 0001 - [facility] Walk-In Urinary Oct- Referring [facility], [place] retentionReten Provider: Kori-uHng Allen tion, urine 1 NDOK Sean NOS [address]. [address], [place], [address], [place] tel:[phone] 0001 - [facility] Walk-In GoutGout NOS Sep-0 WALKER Referring [facility], Center RADHA. 1302 Provider: Kori-Hung Allen 1 E [facility], WANDYOK Sean Allen, [place], [address]. [place] tel:[phone] [place], [address], [place] tel:[phone] [phone] 0001 - [facility] Primary Tinea Aug- [facility] Referring [facility], Care capitisCerumen SHARIF. Provider: Kori-Hung Allen impactionDerma 1 116 A SHARIF Sean tophytosis, [facility], [facility] Street, scalp and [place], [place], , 116 A [place] beardImpacted [address]. [place], cerumen tel:+[phone] Av, [address], [place] [address] [place], tel:+[phone]. [phone] tel:[phone] 8713 - [facility] Walk-In Urinary Tract Apr- LOWRIE PRADIP. Referring [facility] InfectionUreth [facility] 4433 Provider: 33-57 Gabriel ritis [address] NDISIDRA Estrada NECUrethritis E, Leonard, GABRI[address]. [place], [place], [address]. [place] NEC tel:[phone] [place], [phone], [place] tel:[phone] - [facility] Walk-In DysuriaDysuria WALKER Referring [facility] 2 RADHA. 1302 Provider: 33- Allen [address] , [facility] Allen, [place], [address]. [place] tel:[phone] [place], [address], [place] tel:[phone] - [facility] Walk-In Bleeding Mar- WALKER Referring [facility] noseEpistaxis RADHA. 1302 Provider: 33-[address], NDOK Sean Gabriel, [place], [address]. [place] tel:[phone] [place], [phone], [place] tel:[phone] - [facility] Primary Hypertension, Apr-0 [facility] Referring [facility], [facility] essential SHARIF. Provider: - Gabriel NOSChronic 1 [address] SHARIF [facility] Stage [place], [place], , [address] [place] [address]. [place], [place], (severe)Dermat tel:[phone] [facility], [address], [place] [address] [place], [place], tel:[phone] tel:[phone] - [facility] Walk-In Urethritis Jan-0 LOWRIPk [place]. Referring [facility] NECOrchitis/ep [facility] 4433 Provider: Allen ididymitis [address] [facility] NOSUrethritis E, Leonard, STEPHENSON. Street, NECOrchitis/[place], [address]. [place] ididymitis NOS tel:[phone] [place], [address], [place] tel:[phone] - [facility] Primary Chronic renal Feb- [facility] Inc, Care [facility] disease, stage 4- IVErectile 1 [place] [facility], ertensionFoot [place] pain, [place], [address], [place] tel:[phone] - [facility] Primary Calvin-2 MICHAEL [email or web address], Care 5-200 [facility]. [address] [place] [address], Sean [address], Street, [facility], [address]. [place], tel:[phone], [place] [address] tel:[phone] - [facility] Primary Disorder, Calvin-2 MICHAEL [employer], Care psychosexual 4-200 [facility]. 33 [place] NOSRenal [address], Sean failure, acute Floor 5, Street, NOS [facility]iatric [facility], [address]. [place], tel:[phone], [place] [address] tel:[phone] Family History Family Member Diagnosis Age At [...] Insurance type Covered libertarian ID Authorization(s) Blake Willams [id number] Blake [facility] [id number] [place] He [id number] Social History Type Description Quantity Date Captured Comments Alcohol Use Details No Caffeine Use Details tea 1 cup per day Tobacco Use Status Unknown Smoking Status Former smoker Smoking Tobacco Use Cigarette: No Details Available Cigarette: 3 Packs per day Details Vital Signs Date / Height Weight BMI Pulse Blood Temperature Respiratory Body Head BMI Time: Rate Pressure Rate Surface Circumference percentile Area 67.00 189.60 29.6 77 162/86 18 /min -2019 in lbs 9 /min mm[Hg] 8:29 kg/m AM eter (2) Chief Complaint And Reason For Visit No [...] Physical Therapy Ordered: Referrals: Physical Therapy. Location: [facility] Evaluate and treat Referral Ordered: ordered Transplant Surgery (related to Chronic kidney disease, stage 5) Referral Ordered: ordered Referrals: Transplant Surgery. Evaluate and treat Appointment date/timeframe: 4 Weeks Referral Ordered: ordered Transplant Surgery AT [facility] Appointment date/timeframe: 4 Weeks Referral Ordered: ordered Referrals: Orthopedic Surgery. Evaluate and treat Appointment date/timeframe: 10/20/2018 Referral Ordered: ordered CT Abdomen & Pelvis w/o Contrast Appointment date/timeframe: 10/05/2018 Referral Ordered: ordered U/S Arterial Duplex upper extremity unilateral specify side Left Appointment date/timeframe: Stat Referral Ordered: ordered U/S Vascular Vein Mapping Hemodialysis Appointment date/timeframe: Today Referral Referred To: ordered JOHAN ALMENDAREZ [address], [address] [phone] Ordered: Vascular Surgery REFERRAL WITH JOHAN ALMENDAREZ AT [facility] Surgery - Vascular Appointment date/timeframe: 1 [...] Referral Referred To: ordered FLORY RODRIGUEZ [address] [place], [address] [phone] Ordered: FLORY RODRIGUEZ. Nephrology. Consult and treat. Appointment date/timeframe: 12/29/2010 Referral Referred To: ordered MARTY CAMACHO [facility] [address] [place], [address] [phone] Ordered: MARTY CAMACHO. Urology. Consult and treat. Appointment date/timeframe: 12/16/2010 Unknown Immunization Influenza, injectable, quadrivalent, preservative ordered free, split virus Unknown Immunization Pneumococcal conjugate PCV 13 ordered Unknown Immunization TDAP (Boostrix or Adacel) ordered Date Type Problem Goal Intervention Status Start Date Unknown History Of Present Illness Encounter Date Complaint History Of Present Illness Right shoulder- Pt presents today for right shoulder pain. Pt states his surgery was postponed because he started dialysis. He mentions he is having trouble sleeping. he rates his pain 7/10 and he is not taking anything for pain. Functional Status Encounter Date Functional Assessment Cognitive [...] you for choosing the other viral diseases [facility] Walk In. We hope that you [...] transportation - Thank you for choosing the [facility] Walk In. 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 We hope that you [...] follow up Related to Other prostatic with machine design teacher, and urologist as inflammatory diseases scheduled Cream faxed Related to Tinea unguium Patient scheduled for left AVF Related to Chronic kidney disease, creation with Dr. Almendarez. Vein stage 5 mapping ordered see educational handouttake Related to Gout of big toe medication as directed - Thank you for choosing the S Walk [...] to ER. Thank you for choosing the [facility] Walk In. We hope that you [...] 2-3 days. Thank you for choosing a [facility] Walk In. We hope and expect [...] painless range of motion, endurance and function ([facility] PT Gabriel, front office attendant to [...] to ER. Thank you for choosing the [facility] Walk In. 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 We hope that you will [...] come to follow up We will consider machine design teacher Related to Chronic renal insufficiency referral after [...] choosing the Related to Chronic Kidney Disease, [place] Stage IV (severe) Walk In. We hope [...]
--- OUTSIDE RECORDS SUMMARY | 2020-01-06 15:47 | XMS REPORT | Continuity of Care Document ---
:1975 Author Organization 0001 - [employer] Sp[facility] [employer] Address [address] [place] [address] Phone Care Team Providers Name Role Phone PRADIP PITT Unavailable Unavailable Allergies, Adverse Reactions, Alerts Substance Reaction Status Substance Type Unknown WARNIN allergy(ies) could not be collected because the type is not supported. Please contact [facility] for further details. Medications Medication Instructions [...] Providers Description For Visit Copied on Encounter 2019 - [facility] Ortho Procedure and ISABELLA MOSELEY. W-21, Ctr Ortho treatment not [facility] 4433 33-57 carried out [address] Sean for other E, [place], [place], [place], [address]. [place] tel:+[phone] [place], [address], [place] tel:[phone] 2019 - [facility] Ortho Superior GALVAN S Inc, Ctr Ortho glenoid labrum JYOTSNA. [facility] 33-57 lesion of 0 [address], Street, shoulder, [place], [place], [place] subsOther [address]. [place], chronic tel:[phone], [place] painOther [address] tel:+60 articular [phone] cartilage disorders, right shoulderElevat ed blood-pressure reading, w/o diagnosis of htnIncomplete rotatr-cuff tear/ruptr of r shoulder, not trauma 2019 - S Ortho Superior LOWRIE PRADIP. S Inc, Ctr Ortho glenoid labrum [facility] 4433 3357 lesion of [address] Sean right E, [place], [place], [place], [place], [address]. [place] tel:[phone] [place], [address], [place] tel:[phone] 0001 - Physician Oct- JONATHAN S Inc, Services DIANA. [facility] [address] [place], [place] [address]SP, [place], [place], [address]. [address], [place] tel:[phone] tel:[phone] 0001 - [facility] Primary Chronic right Oct-0 [facility], Care [place] shoulder DANISHA. [address] [place] [address] pain[address] [place] [address], [facility], painDysuriaEre [place], [place] ctile [address]. [place], dysfunction, tel:[phone], [place] unspecified [address] tel:+[address] [facility] [phone] dysfunction type 0001 - S Primary Oct-0 TREADWELL S Inc, Care [place] DANISHA. [address] [place] [address], [facility], [place], [place] [address]. [place], tel:[phone], [place] [address] tel:[phone] 0001 - S Primary Aug- AMELIA GRACE. [facility], Care [place] [address] [place] [address] [place] [address], [place], [address]. [place] tel:[phone] [place], [address], [place] tel:[phone] 0001 - [facility] Chronic kidney Sep-1 MICHAEL [facility] Inc, Nephrology disease, stage [facility]. 5Hyp chr 9 [address], [place] kidney disease Floor 5, Street, stage 5 [place], [address]. [place], or tel:[phone], [place] ESRDSecondary [address] tel:[phone] hyperparathyro [phone] idism of renal originAnemia in chronic kidney diseaseUnspeci fied hydronephrosis Personal history of nicotine dependence 0001 - [facility] Primary Chronic kidney Sep- AMELIA GRACE. S Inc, Care [place] disease, stage 8-201 507 [facility], [address] [place] [address] 5Hypertension 9 [facility] secondary to [place], [place], Street, other renal [address]. [place] disordersOther tel:[phone] [place], specified [address], [place] disorders of tel:60 kidney and [id number] ureterPre-op evaluationSupe rior glenoid labrum lesion of right shoulder, subs 0001 - [facility] Primary Encounter for BAKARI S Inc, Care [place] immunization 1 SHARIF. 33-57 [address] , [place] [facility], Street, [place], [place], [address]. [address], [place] tel:[phone] tel: [phone] 0001 - [facility] Ortho Superior Calvin-0 GALVAN S Inc, Ctr Ortho glenoid labrum 4-201 JYOTSNA. [facility] 33-57 lesion of [address] [facility] right [address]kw[address] E, Street, shoulder, [place], [place], [place] subsOther [address]. [place], sprain of tel:[phone], [place] right shoulder [address] tel:60 joint, [phone] subsequent encounter 0001 - [facility] Primary Separation of Nov- MILE S Inc, Care [place] right [address] [place] [address] acromioclavicu 9 [facility] lar joint, [facility], subsequent [place], [place] encounter [address]. [place], tel:[phone], [place] [address] tel:[phone] 0001 - [facility] Chronic kidney b- MICHAEL S Inc, Nephrology disease, stage 5-201 [facility]. 33-57 Leonard 5Hyp chr [address], [place] kidney disease Floor 5, Street, w stage 5 chr [place], [place], [address]. [facility], [place], or tel:[phone], [place] ESRDSecondary [address] tel:[phone] hyperparathyro [phone] idism of renal originAnemia in chronic kidney diseasePersona l history of nicotine dependence 2019 - [facility] Ortho Superior Nov- GALVAN S Inc, Ctr Ortho glenoid labrum JYOTSNA. [facility] lesion of 9 [address], Street, shoulder, [place], [place], [place] subsUnspecifie [address]. [facility], [place], d sprain of tel:[phone], [place] right shoulder [address] tel: joint, subs [phone] encntrElevated blood-pressure reading, w/o diagnosis of htn 2019 - [facility] Urology Chronic kidney Nov- IOFFE [facility], disease, stage 8 EDWARD. 5Erectile [address] [place] [address], [place] dysfunction [address], Street, due to [employer] diseases [place], [place], [place] [address]. [address], [place] elsewhereObstr tel:776 tel: uctive [phone] uropathy 2019 - [facility] Primary Essential Nov- TREADWELL [address]21, Care [place] hypertensionES 7 DANISHA. [address] (end stage 9 [facility], [place] renal [facility], disease)Chroni [place], [place] c right [address]. [place], shoulder tel:[phone], [place] painHyp chr [address] tel:60 kidney disease [id number] w stage 5 chr kidney disease or ESRDPersonal history of nicotine dependence 2019 - [facility] Primary End stage Oct- [employer] [facility], Care [place] renal disease OctE. 5057 City 9 [facility], [place] [address], [place], [place] [address]. [place], tel:[phone], [place] [address] tel: [phone] 0001 - [facility] Ortho Pain in right LOWRIE PRADIP. S Inc, Ctr O Rad shoulderElevat 6 [facility] 4433 33-[address] Sean blood-pressure E, [place], Street, reading, [place], [address]. [place] diagnosis of tel:+[phone] [place], htn [address], [place] tel:[phone] 0001 - S Ortho Right anterior LOWRIE PRADIP. [facility], Ctr Ortho shoulder pain 6-201 S 4433 33-[address] Sean [place], [place], [address]. [place] tel:[phone] [place], [address], [place] tel:[phone] 0001 - [facility] Primary Chronic kidney TREADWELL S Inc, Care [place] disease, stage 5-201 DANISHA. 507 33-57 [facility] 5Essential [address], Sean hypertensionHy [place] Street, p chr kidney [place], [place] [address]. [place], stage 5 chr tel:[phone], [place] kidney disease [address]47 tel:+60 or ESRD [phone] 0001 - S Ortho Pain in LOWJACKELYNE PRADIP. [facility], Ctr Ortho unspecified 5-201 S 4433 33-[address] Sean E, [place], [address]. [place] tel:[phone] [place], [address], [place] tel:[phone] 0001 - S Ortho Pain in GALVAN S Inc, Ctr Ortho unspecified 9-201 JYOTSNA. S 33-57 shoulder 9 [address], Street, [place], [place], [place] [address]. [place], tel:[phone], [place] [address] tel:[phone] 0001 - S Chronic kidney Oct-0 MICHAEL S Inc, Nephrology disease, stage 3-201 FLORY. 33-57 5Hyp chr [address], Sean kidney disease Floor 5, Street, w stage 5 chr [place], [place], [address]. [place], or tel:[phone], [place] ESRDUnspecifie [address] tel:[phone] hydronephrosis 0001 - S Primary Separation of Dec-2 TREADWELL [facility], Care [place] right 7-201 DANISHA. 507 33-57 [facility] acromioclavicu [address], Sean lar joint, [address], sequelaChronic [place], [place] kidney [address]. [place], disease, stage tel:[phone], [place] 5Essential [address] tel:+160 hypertensionHy [phone] p chr kidney disease w stage 5 chr kidney disease or ESRD 0001 - [facility] Urology Hydronephrosis Nov-2 IOFFE S Inc, , unspecified 0-201 EDWARD. 30 33-57 hydronephrosis 8 [facility] typeChronic [address], Street, kidney [facility] disease, stage [facility], [place], [facility], [place], [address]. [address], [place] (severe)Testic tel:+[phone] tel:+60 ular [phone] painImpotenceI ncomplete bladder emptyingNoctur ia 0001 - [facility] Primary Nov-0 TREADWLEL S Inc, Care [place] 1-201 DANISHA. 50 33-57 [facility] 8 [facility], [place], [place] [address]. [place], tel:[phone], [place] [address] tel:[phone] 0001 - [facility] Primary Chronic kidney Oct-2 TREADWELL S Inc, Care [place] disease, stage 6-201 DANISHA. 507 33-57 [facility] 5Erectile 8 [facility] dysfunction [facility], due to [place], [place] diseases [address]. [place], classified tel:[phone], [place] elsewhereEssen [address] tel:+60 tial [phone] hypertensionHy pertensive chronic kidney disease w stg 1-4/unsp chr kdnyHyp chr kidney disease w stage 5 chr kidney disease or ESRD 0001 - [facility] Walk-In Encounter for Sep-2 JAZMYN S Inc, Center screening for 0-201 YENNI. 1302 E 33-57 Gabriel other viral 6 [facility] HospitalEncoun [facility], Street, ter for [place], [place], [address]. [place], human tel:[phone], [place] immunodeficien [address] tel:+60 cy virus [phone] 0001 - [facility] Primary Essential Aug-0 PONTICIELLO S Inc, Care (primary) - SHARIF. 33-57 Gabriel hypertensionCh 6 [address] Sean [address] kidney [address], Street, disease, stage [facility] 5Tinea [address]. [place], corporisHypert tel:[phone], [place] ensive chronic [address] tel:+60 kidney disease [phone] w stg 1-4/unsp chr kdnyPersonal history of nicotine dependenceHyp chr kidney disease w stage 5 chr kidney disease or ESRD 0001 - [facility] Chronic kidney Apr- [facility], Nephrology disease, stage 9-201 [place]. 3357 5FSGS (focal 6 [facility] [address], Street, glomeruloscler [facility] [place] osis)[place], [address]. [place], [place], hypertensionOb tel:[phone], [place] structive [address] tel:+60 uropathyHyp [phone] chr kidney disease w stage 5 chr kidney disease or ESRDPersonal history of nicotine dependence 0001 - [facility] Surgery Arm numbness Calvin- [facility], left 0-201 MYRANDA. 30 33-57 6 [facility], [place], [address], [place], [place], [place], [address], [place] [address]. tel:+ tel:[phone] 2019 - [facility] Chronic kidney Calvin-0 [facility], Nephrology disease, stage [place]. 5Essential 6 [facility] [address] (primary) Ave Fl 5, Street, hypertensionOb [facility] [place], [address]. [place], uropathyHyp tel:[phone], [place] chr kidney [address] tel:+60 disease w [phone] stage 5 chr kidney disease or ESRDPersonal history of nicotine dependence 0001 - [facility] Walk-In Left arm pain Calvin-0 TOKOS RONAL. [facility], Center 6-201 [address] [place] [address], [facility], [place], [address]. [place] tel:[phone] [place], [address], [place] tel:+ [phone] 0001 - [facility] Primary Essential Mar-2 PONTICIELLO [facility] Inc, Care (primary) 8 SHARIF. 33-57 [place] hypertensionCh 6 [address] Sean ronic kidney [address], Street, disease, stage [place], [place], [place] 4 [address]. [place], (severe)Hypert tel:+[phone], [place] ensive chronic [address] tel:+60 kidney disease [phone] w stg 1-4/unsp chr kdnyNicotine dependence, cigarettes, uncomplicated 0001 - [facility] Chronic kidney Mar-0 QUASEM [facility], Nephrology disease, stage 3-201 [place]. 4 6 [facility] [address] (severe)Hypert Ave Fl 5, Street, ensive kidney [place], [address]. [place], CKD stage tel:[phone], [place] IVObstructive [address] tel:+60 uropathyFocal [phone] segmental glomeruloscler osisNicotine dependence, cigarettes, uncomplicated 0001 - [facility] Walk-In DysuriaEncount Nov- TOKOS RONAL. [facility], Center er for [address] Gabriel screening for 6 , YVETTESean other viral [place], [place], [address]. [place] tel:+[phone] [place], [address], [place] tel:+ [phone] 0001 - [facility] Primary Other Castro- PONTICIELAkella S Inc, Care prostatic 7 SHARIF. 33-57 [place] inflammatory 6 [address], Street, unguiumEssenti [place], [place], [place] al (primary) [address]. [place], hypertensionPe tel:[phone], [place] rsonal history [address] tel:+160 of nicotine [phone] dependence 0001 - [facility] Surgery Chronic kidney Castro- [facility] Inc, disease, stage 3-201 MYRANDA. 30 3357 5 [address], [address], [address], [place], [place], [place], [address], [place] [address]. tel:+ tel:[phone] 01850 0001 - S Stage 5 Castro-0 QUASEM [facility] Inc, Nephrology chronic kidney 8-201 [place]. 3357 disease due to 6 [facility] [address], Street, hypertensionCh [place], [address]. [place], disease, stage tel:[phone], [place] 5Obstructive [address] tel:+60 uropathy [phone] 2019 - S Walk-In Gout of big Castro-0 TOKOS RONAL. [facility], Center toe 7-201 [address] [place] [address], [facility], [place] Gabriel, [place], [address]. [place] tel:+[phone] [place], [address], [place] tel:+ [phone] 2019 - [facility] Walk-In TineaHypertens Dec-2 YARDE [facility], Center ion 3-201 DAVINIA. 57 [place] 5 [address] [place], [place], [place], [address]. [address], [place] tel:+[phone] tel:+ [phone] 0001 - [facility] Walk-In Dysuria Apr-0 [facility] Inc, Center 9-201 CED. 57 [place] 5 [address]17 [place], [place], [place], [address]. [address], [place] tel:+[phone] tel:[phone] 0001 - S Chronic Kidney Mar-1 S Inc, Nephrology Disease, Stage 2-201 57 Leonard IV 5 Sean (severe)Hypert Street, [facility] UnspecifiedDis [place], [place], [address], [place] hypertensive tel:+60 renal NOS, w/o [phone] RF 0001 - S Pain in Mar-0 BENTLEY S Inc, Orthopedics shoulder 4-201 KIKI. 93 -57 [place] [address] [place] [address], [facility], [facility], [address]. [place], tel:[phone], [place] [address] tel:[phone] 0001 - [facility] Walk-In Urinary Mar-0 YARDE S Inc, Center frequency DAV[place]IA. [place] 5 [address] [place], [place], [place], [address]. [address], [place] tel:[phone] tel:[phone] 0001 - [facility] Primary Pain in joint, PONTICIELLO S Inc, Care shoulder SHARIF. [facility] 5 116 A [facility], [facility] [address]. [place], tel:[phone], [place] [address] tel:[phone] 0001 - S Walk-In Chest pain Dec- S Inc, Center Gabriel 4 [place], [address], [place] tel:[phone] 0001 - [facility] Pain in joint, NINOSKA HENRY. S Inc, Orthopedics shoulder 30 [place] [address] [place] [address] S455, [place], [place], [place], [address]. [address], [place] tel:[phone] tel:[phone] 0001 - S Urology Varix, scrotal Nov- PAREEK S Inc, NATWAR. [address] [place] [address], [place], [address], [place], [place], [address], [place] [address]. tel:+[phone] tel:[phone] 30104 0001 - [facility] Primary Shoulder pain Nov- [facility] Inc, Care 0 KHUSHBOO. [address] E Gabriel 4 [facility], [facility], [address]. [place], tel:[phone], [place] [address] tel:[phone] 0001 - Outpatient - Accidental Nov-0 PONTICIELLO [facility], Other - [facility] fall NEC 7-201 SHARIF. 33-57 4 [address] Jacques, [place], [place], [place] [address]. [place], tel:[phone], [place] [address] tel:[phone] 0001 - [facility] Primary Shoulder Oct-3 HORNE [facility] Inc, Care painWrist 1-201 KHUSHBOO. 1302 E 33-57 [place] painHypertensi 4 Main [facility], essential [facility], Street, NOSAccidental [facility] [place], [address]. [place], stairs or tel:[phone], [place] steps NEC [address] tel:[phone] 0001 - [facility] Primary Gout Oct-2 PONTICIELLO [facility] Inc, Care NOSChronic 0-201 SHARIF. 3357 [place] renal 4 [address] Jacques, [place], esticular [place], [place], [place] Centerens [address]. [place], , essential tel:[phone], [place] N[place] [address] tel:[phone] 0001 - [facility] Walk-In Testicular Oct-0 ZARRINI [employer] Inc, Center pain 7-201 CHAVA. -57 Gabriel 4 1302 E [facility], [address]. [place], tel:[phone], [place] [address] tel:[phone] 0001 - [facility] Walk-In Gout NOS Sep-2 ZARRINI [facility] Inc, Center 6-201 CHAVA. -57 [place] 4 1302 E [facility], [address]. [place], tel:[phone], [place] [address] tel:[phone] 0001 - [facility] Walk-In Gout Sep-1 GIANGRIECO [facility] Inc, Center NOSChronic 6-201 MONISHA. 33-57 Gabriel Kidney 4 [address] Sean Disease, Stage St, Street, IV (severe) [place], [address]. [place], tel:[phone], [place] [address] tel:[phone] 0001 - [facility] Primary Chronic Kidney February- [facility], Care Disease, Stage 3-201 KHUSHBOO. 1302 E 33-57 [place] IV [address] Sean Kohli (severe)Erecti [facility], Street, [place], [address]. [place], ertension, tel:[phone], [place] essential NOS [address] tel:[phone] 0001 - [facility] Walk-In UrethritisDisc Referring [facility], Provider: Sally Leonard urethral 4 WALKIN Sean [place], [place], [address] [facility] [address], [place], [address], [place] [address]. tel:[phone] 0001 - [facility] Walk-In Dysuria Referring [facility], [place] Provider: Sally Gabriel 4 [place], [address], [place] tel:[phone] 0001 - [facility] Fx closed [facility], Orthopedics radius, [place]. [facility] 33-57 [place] headDislocatio 3 [address] Sean n closed [address], [place], acromioclavicu [place], [place], [place] larWrist [address]. [place], painAftercare, tel:[phone], [place] healing [address] tel:+60 traumatic fx, [phone] upper armAftercare, healing traumatic fx, lower arm 0001 - [facility] Radial head May- [facility], Orthopedics fractureAcromi [place]. [facility] 33-57 [place] oclavicular 3 [address], Street, separation [place], [place], [place] [address]. [place], tel:[phone], [place] [address] tel:[phone] 0001 - S Walk-In [facility] Referring S Inc, Center Accidental Provider: Sally Zelaya fall NECPlace 3 NDWI [facility], [address], [place] tel:[phone] 0001 - S Urology Chronic renal Aug- AJIT S Inc, insufficiency AHMED. [facility] 2 30 [facility] [address], [place], [place], [place], [address]. [address], [place] tel:[phone] tel:[phone] 0001 - S Walk[facility]In [facility] ZARRINI Referring S Inc, [facility] CHAVA. Provider: Sally Zelaya 2 [address] [facility], [facility]. [facility], [address]. [place], tel:[phone], [place] [address] tel:[phone] 0001 - [facility] Urology UPJ May- AJIT S Inc, obstruction, AHMED. [facility] acquired 2 30 [facility] [address], [place], [place], [place], [address]. [address], [place] tel:[phone] tel:[phone] 0001 - S Primary Gout NOSGout May- [facility] S Inc, Care NOS SHARIF. [place] 2 [address] [place], [place], [place] [address]. [place], tel:[phone], [place] [address] tel:[phone] 0001 - S Primary Gout NOS Apr- PONTICIELLO S Inc, Care SHARIF. Gabriel 2 [address] [place] [facility], [place], [place] [address]. [place], tel:[phone], [place] [address] tel:[phone] 0001 - S Walk-In Open Apr-0 WALKER Referring S Inc, Center woundWound 5-201 RADHA. 1302 Provider: 33-57 Gabriel open, scalp [address], [facility] w/o [place], GABRIEL. Street, [place], [address]. [place] und open, site tel:[phone] [place], NOS w/o [address], [place] complicationWo tel:+60 und open, site [phone] NOS w/o complication 0001 - S Primary GoutGout NOS Calvin- PONTICIELLO S Inc, Care 2-201 SHARIF. Gabriel 2 116 A [facility], [place], [place], [place], [place] [address]. [place], tel:[phone], [place] [address] tel:[phone] 0001 - S Primary Gout February- PONTICIELLO S Inc, Care NOSHypertensio 6 SHARIF. [place] n, essential 2 116 A [place] NOSScreening [facility], for viral [facility] disease [address]. [place], NECGout tel:[phone], [place] NOSHypertensio [address] tel:+60 n, essential [phone] NOS 0001 - [facility] Walk-In Gout NOSGout February-0 WALKER Referring S Inc, Center NOSGout NOS 8 RADHA. 1302 Provider: 33- [place] [address], [facility] [place], [place], [address]. [place] tel:+[phone] [place], [address], [place] tel:[phone] 0001 - S Urology Hypertension, AJIT S Inc, essential NOS 9-201 AHMED. [facility] 57 2 30 [facility] [address], [place], [place], [address]. [address], [place] tel:+[phone] tel:[phone] 0001 - [facility] Primary Dermatophytosi Nov-1 [facility], Care s, scalp and SHARIF. [place] beardHypertens 1 [address] Sean ion, essential [address], [place], NOSDermatitis [place], [place], [place] NECDermatophyt [address]. [place], osis, scalp tel:[phone], [place] and [address] tel:+60 beardHypertens [phone] ion, essential NOS 0001 - S Primary Dermatophytosi Nov-1 [facility] Inc, Care s, scalp and SHARIF. [place] beardHypertens 1 [address] Sean ion, essential [address], [place], NOSRetention, [place], [place] urine [address]. [place], NOSChronic tel:[phone], [place] Kidney [address] tel:+60 Disease, Stage [id number] IV (severe)Dermat ophytosis, scalp and beardHypertens ion, essential NOSRetention, urine NOS 0001 - [facility] Walk-In Urinary Oct- Referring [facility], Center retentionReten Provider: Sally Gabriel tion, urine 1 NDWI [place], [address], [place] tel:[phone] 0001 - [facility] Walk-In GoutGout NOS Sep-0 WALKER Referring [facility], Center 1 RADHA. 1302 Provider: Sally [place] [address], JAYLENE Zelaya, [place], [address]. [place] tel:+[phone] [place], [address], [place] tel:[phone] 0001 - [facility] Primary Tinea Aug- [facility] Referring S [facility], Care capitisCerumen SHARIF. Provider: Sally [place] impactionDerma 1 [address] SHARIF [address]ada tophytosis, [address], [facility] [address], scalp and [place], [place], , [address] A [address] beardImpacted [id number]. [place], [place], cerumen tel:[phone] [facility], [address], [place] [address] [place], [place], tel:[phone] tel:[phone] - [facility] Walk-In Urinary Tract LOWRIPk MOSELEY. Referring [facility], Center InfectionUreth [facility] 4433 Provider: Sally Zelaya ritis [address] [facility] NECUrethritis E, Leonard, GABRI[address]. Street, [place], [address]. Davon NEC tel:[phone] [place], [address], [place] tel:[phone] - [facility] Walk-In DysuriaDysuria WALKER Referring [facility], Center RADHA. 1302 Provider: Sally Gabriel [address] , [facility] Gabriel, [place], [address]. Davon tel:[phone] [place], [address], [place] tel:[phone] - [facility] Walk-In Bleeding Calvin- WALKER Referring [facility], Center noseEpistaxis RADHA. 1302 Provider: Sally [place] [address] , [facility] [place], [place], [address]. Davon tel:[phone] [place], [address], [place] tel:[phone] - [facility] Primary Hypertension, Apr-0 [facility] Referring [facility], Care essential SHARIF. Provider: Sally Zelaya NOSChronic 1 [address] Kidney [facility], Disease, Stage [place], [place], , [address] [place] [address]. [place], [place], (severe)Dermat tel:[phone] [facility], [address], [place] itis [place] [address] [place], [place], tel:[phone] tel:[phone] - [facility] Walk-In Urethritis Apr-0 ISABELLA MOSELEY. Referring [facility], Center NECOrchitis/ep [facility] 4433 Provider: 33-57 [place] ididymitis [address] NDWI Sean NOSUrethritis E, Leonard, GABRIEL. Street, NECOrchitis/[place], [address]. Danube ididymitis NOS tel:[phone] [place], [address], [place] tel:[phone] - [facility] Primary Chronic renal Feb-2 S Inc, Care [address] St disease, stage 4-[address], ertensionFoot [place]ube pain, [place], [address], [place] tel:[phone] 2019 - [facility] Primary Calvin-2 MICHAEL S Inc, Care 5-[address] FLORY. [place] [address], Sean Floor 5, Street, [facility], [address]. [place], [place], tel:[phone], [place] [address] tel:[phone] 2019 - [facility] Primary Disorder, Calvin-2 MICHAEL S Inc, Care psychosexual 4-200 [address]. [place] NOSRenal [address], Sean failure, acute Floor 5, Street, [facility], [address]. [place], [place], tel:[phone], [place] [address] tel:[phone] Family History Family Member Diagnosis Age At [...] type Covered libertarian ID Authorization(s) Blake Malik d He [id number] Medicaid [facility] He [id number] Social History Type Description Quantity Date Captured [...] Physical Therapy Ordered: Referrals: Physical Therapy. Location: [facility] [employer]. Evaluate and treat Referral [...] Referral Referred To: ordered JOHAN COYLE [address], [address] [phone] Ordered: Vascular Surgery REFERRAL WITH JOHAN COYLE AT [facility] Surgery - Vascular Appointment date/timeframe: 1 [...] Referral Referred To: ordered FLORY RODRIGUEZ [address] [place], [address] [phone] Ordered: FLORY RODRIGUEZ. Nephrology. Consult and treat. Appointment date/timeframe: 12/29/2010 Referral Referred To: ordered MARTY CAMACHO [facility] [id number] [place], [address] [phone] Ordered: MARTY CAMACHO. Urology. Consult and treat. [...] you for choosing the other viral diseases [facility] Walk In. We hope that you [...] transportation - Thank you for choosing the [facility] Walk In. We hope that you [...] your kidney functions decreasing Continue care of tab cutter, Related to Chronic kidney disease, fistula site healing well stage 4 (severe) Avoid sexual intercourse until Related to Dysuria cultures return.For future encounters pelase have safe sex.Follow up with primary doctor, urologist, and tab cutter - Thank you for choosing the [facility] Walk In. We hope that you [...] follow up Related to Other prostatic with tab cutter, and urologist as inflammatory diseases scheduled Cream faxed Related to Tinea unguium Patient scheduled for left AVF Related to Chronic kidney disease, creation with Dr. Coyle. Vein stage 5 mapping ordered see educational handouttake Related to Gout of big toe medication as directed - Thank you for choosing the [facility] Walk In. We hope that you [...] to ER. Thank you for choosing the [facility] Walk In. We hope that you [...] 2-3 days. Thank you for choosing a [facility] Walk In. 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 We hope that you will [...] a primary care provider, ask at the bowling or skating front desk clerk for a list of local providers who [...] come to follow up We will consider tab cutter Related to Chronic renal insufficiency referral after [...] choosing the Related to Chronic Kidney Disease, Gabriel/[place]/Leonard Stage IV (severe) Walk In. We hope [...]
--- OUTSIDE RECORDS SUMMARY | 2020-01-06 15:47 | XMS REPORT | Continuity of Care Document ---
:1975 Author Organization 0001 - [employer] Address [address] [place] [address] Phone Care Team Providers Name Role Phone JYOTSNA GALVAN MD Unavailable Unavailable Allergies, Adverse Reactions, Alerts Substance Reaction Status Substance Type Unknown WARNIN allergy(ies) could not be collected because the type is not supported. Please contact [facility] for further details. Medications Medication Instructions [...] For Visit Copied on Encounter 2019 - [facility] Ortho Superior MANDY [employer], Ctr Ortho glenoid labrum JYOTSNA. [facility] 3357 lesion of 0 [address], [place], [facility] subsOther [address]. [place], [facility] tel:[phone], [place] painOther [address] tel:+60 articular [phone] cartilage disorders, right shoulderElevat ed blood-pressure reading, w/o diagnosis of htnIncomplete rotatr-cuff tear/ruptr of r shoulder, not trauma 2019 [employer], 33-57 0 [place], [address], [place] tel:[phone] 2019 S Ortho Superior ISABELLA MOSELEY. [employer], Ctr Ortho glenoid labrum S 4433 33-57 lesion of [address] Delmi right E, Leonard, Street, [facility] [place], [place], [address]. [place] tel:[phone] [place], [address], [place] tel:[phone] 0001 - [facility] Primary Chronic right Castro-0 TREADWELL S Inc, Care [place] shoulder 3-OctE. [address] [place] [address] painOther 0 [facility] [address], Del[place] chronic [place] [address], painDysuriaEre [place], [place] ctile [address]. [place], dysfunction, tel:[phone], [place] unspecified [address] tel:60 erectile [phone] dysfunction type 0001 - [facility] Primary Castro-0 TREADWELL S Inc, Care [place] 2-OctE. 507 [facility] City 0 [facility] St, Delmi [facility], [place], Davon [address]. [place], tel:[phone], [place] [address] tel:[phone] [place] [address] Primary Nov- AMELIA GRACE. [facility] Inc, Care [place] 1- [address] [place] [address] 9 [place], [place], Street, [address]. [place]on tel:[phone] [place], [address], [place] tel:+ [phone] [facility] - [facility] Chronic kidney Sep-1 MICHAEL [facility], Nephrology disease, stage 9-201 [facility]. 5Hyp chr 9 [address] [place], [place] kidney disease Floor 5, [place], w stage 5 chr [place], [place], [address]. [place], [place], or tel:[phone], [place] ESRDSecondary [address] tel:60 hyperparathyro [phone] idism of renal originAnemia in chronic kidney diseaseUnspeci fied hydronephrosis Personal history of nicotine dependence 0001 - [facility] Primary Chronic kidney Sep-[address] [facility] Inc, Care [place] disease, stage 8-[address] [place] [address] 5Hypertension 9 [facility] secondary to [place], [place], Street, other renal [address]. [place] disordersOther tel:[phone] [place], [place] [address], [place] disorders of tel:+60 kidney and [phone] ureterPre-op evaluationSupe rior glenoid labrum lesion of right shoulder, subs 0001 - [facility] Primary Encounter for BAKARI [facility], Care [place] immunization SHARIF. 3357 [facility] [address], Delmi [facility], Street, [place], [place], [address]. [address], [place] tel:[phone] tel:[phone] 0001 - [facility] Ortho Superior Calvin-0 GALVAN S Inc, Ctr Ortho glenoid labrum 4-[address] [facility] 33- lesion of 9 [address] [facility] [address], Street, shoulder, [place], [place], [place] subsOther [address]. [place], sprain of tel:[phone], [place] right shoulder [address] tel:60 joint, [phone] subsequent encounter 0001 - [facility] Primary Separation of TREADWELL S Inc, Care [place] right DANISHA. [facility] acromioclavicu [address], [place] lar [facility], Davon Street, subsequent [facility] encounter [address]. [place], tel:[phone], [place] [address] tel:+ [phone] 0001 - [facility] Chronic kidney Nov- MICHAEL S Inc, Nephrology disease, stage 5-201 [facility]. Leonard 5Hyp chr 9 [address], [place]mi kidney disease Floor 5, [place], stage 5 chr [place], [place], [address]. [facility], [place], or tel:[phone], [place] ESRDSecondary [address] tel:+60 hyperparathyro [phone] idism of renal originAnemia in chronic kidney diseasePersona l history of nicotine dependence 0001 - S Ortho Superior Feb- GALVAN [employer], Ctr Ortho glenoid labrum 1-[address] [facility] 33-57 lesion of 9 [address], Street, shoulder, [place], [place], Davon subsUnspecifie [address]. [facility], [place], d sprain of tel:[phone], [place] right shoulder [address] tel:60 joint, subs [phone] encntrElevated blood-pressure reading, w/o diagnosis of htn 0001 - [facility] Urology Chronic kidney Feb-[address] [facility] Inc, disease, stage 8-201 EDWARD. 30 -57 5Erectile 9 [facility] dysfunction [address], Street, due to [place] Mays diseases [place], [place] [address]. [address], [place] elsewhereObstr tel:+[phone] tel:+60 uctive [phone] uropathy 0001 - [facility] Primary Essential Nov-0 TREADWELL S Inc, Care [place] hypertensionES 7- DANISHA. [address] (end stage 9 [facility] renal [facility], disease)Chroni [place], [place], [place] c right [address]. [place], shoulder tel:[phone], [place] painHyp chr [address] tel:+60 kidney disease [id number] w stage 5 chr kidney disease or ESRDPersonal history of nicotine dependence 0001 - [facility] Primary End stage Oct-2 TREADWELL S Inc, Care [place] renal disease OctE. 507 57 City 9 [facility], [place] [address], [place], [place] [address]. [place], [place], tel:[phone], [place] [address] tel:[phone] 0001 - [facility] Ortho Pain in right LOWRIE PRADIP. S Inc, Ctr O Rad shoulderElevat 6- [facility] 4433 33-[address] [place] blood-pressure E, [place], [place], [place], [place], [address]. [place] diagnosis of tel:[phone] [place], htn [address], [place] tel:[phone] 0001 - S Ortho Right anterior LOWRIE PRADIP. [employer], Ctr Ortho shoulder pain [facility] 4433 33-[address] Delmi E, [place], [place], [address]. [place] tel:+[phone] [place], [address], [place] tel:[phone] 0001 - S Primary Chronic kidney TREADWELL [employer] Inc, Care [place] disease, stage 5-201 DANISHA. 507 33-57 City [address], [place] hypertensionHy [place] Street, p chr kidney [facility], [place], [place] [address]. [place], stage 5 chr tel:[phone], [place] kidney disease [address] tel:+60 or ESRD [phone] 0001 - S Ortho Pain in ISABELLA MOSELEY. [facility], Ctr Ortho unspecified 5-201 S 4433 33-[address] Delmi E, Leonard, [place], [address]. [place] tel:+[phone] [place], [address], [place] tel:[phone] 0001 - S Ortho Pain in GALVAN S Inc, Ctr Ortho unspecified JYOTSNA. [facility] 33-57 shoulder 9 [address], [place], [place], [place] [address]. [place], tel:[phone], [place] [address] tel:+[phone] 0001 - S Chronic kidney Oct- MICHAEL S Inc, Nephrology disease, stage 3-201 [facility]. -57 5Hyp chr [address], [place] kidney disease Floor 5, Street, w stage 5 chr [place], [place], [address]. [place], or tel:[phone], [place] ESRDUnspecifie [address] tel:[phone] hydronephrosis 0001 - S Primary Separation of MILE S Inc, Care [place] right . 507 33-57 City acromioclavicu 8 [facility], [place] lar joint, Davon Street, sequelaChronic [place], [place] kidney [address]. [place], disease, stage tel:[phone], [place] 5Essential [address] tel:+160 hypertensionHy [phone] p chr kidney disease w stage 5 chr kidney disease or ESRD 0001 - S Urology Hydronephrosis Nov-2 IOFFE [facility], , unspecified 0-201 EDWARD. 30 [address] [place] [address], [place] typeChronic [address], Street, kidney [place] disease, stage [place], [place], 4 [address]. [address], [place] (severe)Testic tel:+[phone] tel:+60 ular [phone] painImpotenceI ncomplete bladder emptyingNoctur ia 0001 [facility] Primary Nov-0 TREADWELL S Inc, Care [place] 1-201 DANISHA. 507 33-57 City 8 [facility], [facility], [place], [place] [address]. [place], tel:[phone], [place] [address] tel:[phone] [place] [address] Primary Chronic kidney Oct-2 [facility], Care [place] disease, stage 6-201 DANISHA. 507 33-57 [facility] 5Erectile 8 [facility], [facility], due to [place], [place] diseases [address]. [place], classified tel:[phone], [place] elsewhereEssen [address] tel:+60 tial [phone] hypertensionHy pertensive chronic kidney disease w stg 1-4/unsp chr kdnyHyp chr kidney disease w stage 5 chr kidney disease or ESRD [address] [place] [address] Walk-In Encounter for Sep-2 JAZMYN [facility], Center screening for 0-201 YENNI. 1302 E 33-57 [place] other viral 6 [facility], Street, ter for [place], [place], [address]. [place], human tel:[phone], [place] immunodeficien [address] tel:+60 cy virus [phone] [address] [place] [address] Primary Essential Aug-[address] [facility] Inc, Care (primary) 5-201 SHARIF. 33-57 Gabriel hypertensionCh 6 116 A [place] ronic kidney [facility], disease, stage [place], [place] 5Tinea [address]. [place], corporisHypert tel:[phone], [place] ensive chronic [address] tel:+1-60 kidney disease [id number] w stg 1-4/unsp chr kdnyPersonal history of nicotine dependenceHyp chr kidney disease w stage 5 chr kidney disease or ESRD 0001 [facility] Chronic kidney Apr- [facility] Inc, Nephrology disease, stage 9-201 [place]. 5FSGS (focal [address] [facility] [address] Fl [address], Street, glomeruloscler [facility] [place], [address]. [place], hypertensionOb tel:[phone], [place] structive [address] tel:+60 uropathyHyp [phone] chr kidney disease w stage 5 chr kidney disease or ESRDPersonal history of nicotine dependence 0001 - [facility] Surgery Arm numbness Calvin-1 LINDA S Inc, left 0-201 MYRANDA. 30 -57 6 [facility], [place], [address], [place], [place], [place], [address], [place] [address]. tel:+60 tel:[phone] 30372 0001 - [facility] Chronic kidney Calvin-0 QUASEM [facility], Nephrology disease, stage 9-201 [place]. 5Essential [address] [facility] [address] (primary) Ave Fl 5, Street, hypertensionOb [facility] [place], [address]. [place], uropathyHyp tel:[phone], [place] chr kidney [address] tel:+60 disease w [phone] stage 5 chr kidney disease or ESRDPersonal history of nicotine dependence 0001 - [facility] Walk-In Left arm pain Calvin-0 TOKOS RONAL. [facility], Center 6-201 [address], [facility], [place], [address]. [place] tel:+[phone] [place], [address], [place] tel:[phone] 0001 - [facility] Primary Essential Mar-2 PONTICIELLO [facility], Care (primary) 8-201 SHARIF. 33-57 [place] hypertensionCh 6 116 A [address] ronic kidney [address], [place], disease, stage [place], [place], [place] 4 [address]. [place], (severe)Hypert tel:[phone], [place] ensive chronic [address] tel:+[phone] kidney disease [id number] w stg 1-4/unsp chr kdnyNicotine dependence, cigarettes, uncomplicated 0001 - [facility] Chronic kidney Mar-0 Between Digital, Nephrology disease, stage 3-201 [place]. 33-57 4 6 S [address] (severe)Hypert Ave Fl 5, Street, ensive [place], [address]. [place], CKD stage tel:[phone], [place] IVObstructive [address] tel:+60 uropathyFocal [phone] segmental glomeruloscler osisNicotine dependence, cigarettes, uncomplicated 0001 - S Walk-In DysuriaEncount TOKOS RONAL. Heidi Shaulis, Center er for [address] 33-57 [place] screening for 6 St, [facility] PEDRAZA other viral [place], [place], [place], [address]. [place] tel:[phone] [place], [address], [place] tel:[phone] 0001 - [facility] Primary Other PONTICIELLO S Inc, Care prostatic SHARIF. 33-57 Gabriel inflammatory 6 [address] diseasesTinea [address], Street, unguiumEssenti [place], [place], [place] al (primary) [address]. [place], hypertensionPe tel:[phone], [place] rsonal history [address] tel:+60 of nicotine [id number] dependence 0001 - [facility] Surgery Chronic kidney [facility], disease, stage 3-201 MYRANDA. 30 3357 5 6 Delmi [address] [place], Street, [address], [place], [place], [address], [place] [address]. tel:+60 tel:[phone] 15927 0001 - [facility] Stage 5 0 statusboom Heidi Shaulis, Nephrology chronic kidney 8-201 [place]. 33-57 disease due to [address] [facility] [address], Street, hypertensionCh [place], [address]. [place], disease, stage tel:[phone], [place] 5Obstructive [address] tel:+60 uropathy [phone] 0001 - S Walk-In Gout of big Castro-0 TOKOS RONAL. S Inc, Center toe 7201 [address], [facility], [facility], [place], [address]. [place] tel:[phone] [place], [address], [place] tel:[phone] 0001 - S Walk-In TineaHypertens Dec-2 YAE S Inc, Center ion 3-201 DAVINIA. Gabriel 5 4417 [facility], [place], [place], [address]. [address], [place] tel:+[phone] tel:[phone] 0001 - S Walk-In Dysuria Apr-0 [facility] Inc, Center 9-201 CED. Gabriel 5 4417 [facility], [place], [place], [address]. [address], [place] tel:[phone] tel:[phone] 0001 - S Chronic Kidney Mar-1 S Inc, Nephrology Disease, Stage 2-201 57 [address] IV 5 [place] (severe)[facility] UnspecifiedDis [place], ease, [address], [place] hypertensive tel:+160 renal NOS, w/o [phone] RF 0001 - S Pain in Dec-0 BENTLEY S Inc, Orthopedics shoulder 4-201 KIKI. [address] [place], [facility], [facility], [address]. [place], tel:[phone], [place] [address] tel:[phone] 0001 - S Walk-In Urinary Mar-0 YARDE S Inc, Center frequency 1-201 DAVINIA. Gabriel 5 4417 [facility], [place], [place], [address]. [address], [place] tel:[phone] tel:[phone] 0001 - S Primary Pain in joint, Feb-2 PONTICIELLO S Inc, Care shoulder 4- SHARIF. [place] regionHyperten 5 116 A Delmi timothy [place] [facility], [place], [facility] [address]. [place], tel:[phone], [place] [address] tel:[phone] 0001 - S Walk-In Chest pain Dec-0 S [facility], Center 57 Gabriel 4 [place], [address], [place] tel:[phone] 0001 - S Pain in joint, Nov-2 NINOSKA HENRY. [facility], Orthopedics shoulder 30 [place] 33-57 [facility] 4 [place] [address], [place], [place], [place], [address]. [address], [place] tel:[phone] tel:[phone] 0001 - S Urology Varix, scrotal Nov-1 PAREEK [facility], NATWAR. 30 4 [facility], [place], [address], [place], [place], [address], [place] [address]. tel:+[phone] tel:[phone] 68720 0001 - S Primary Shoulder pain Nov-1 [facility], Care 0-201 KHUSHBOO. 1302 E 33-57 Gabriel 4 [facility], [facility], [address]. [place], tel:[phone], [place] [address] tel:[phone] 0001 - Outpatient - Accidental Nov-0 [facility]ENTERAdlyfe S Inc, Other - [facility] fall NEC SAHRIF. 57 4 116 A [place], [facility] [address]. [place], tel:[phone], [place] [address] tel:[phone] 0001 - S Primary Shoulder Oct-3 [facility] Inc, Care painWrist 1-201 KHUSHBOO. 1302 E 33-57 Gabriel painHypertensi [address], [place] on, essential [facility], Street, NOSAccidental [place], [address]. [place], stairs or tel:[phone], [place] steps NEC [address] tel:[phone] 0001 - S Primary Gout Oct-2 PONTICIELLO [facility], Care NOSChronic 0-201 SHARIF. 33-57 [place] renal 4 [address], Street, esticular [place], [place] painHypertensi [address]. [facility], [place], on, essential tel:[phone], [place] NOS [address] tel:[phone] 0001 - S Walk-In Testicular Oct-0 ZARRINI S Inc, Center pain 7-201 CHAVA. 33-57 Gabriel 4 [address] [facility], [facility], Street, [facility], [address]. [place], tel:[phone], [place] [address] tel:[phone] 0001 - S Walk-In Gout NOS Sep-2 ZARRINI S Inc, Center 6-201 CHAVA. 33-57 [place] 4 [address] [facility], [facility], [place], [facility], [address]. [place], tel:[phone], [place] [address] tel:[phone] 0001 - S Walk-In Gout Sep-1 GIANGRIECO S Inc, Center NOSChronic 6-201 MONISHA. 33-57 Gabriel Kidney 4 [address] Delmi Disease, Stage St, Street, IV (severe) [place], [address]. [place], tel:[phone], [place] [address] tel:[phone] 0001 - S Primary Chronic Kidney May-2 HORNE S Inc, Care Disease, Stage 3-201 KHUSHBOO. 1302 E 33-57 [place] IV 4 Main , [place] (severe)Erecti [facility], Street, [place], [address]. [place], ertension, tel:[phone], essential NOS [address] tel:+ [phone] 2019 - [facility] Walk-In UrethritisDisc Referring S [facility], [facility], Provider: Sally Leonard urethral 4 WALKIN [place], Street, [address] [facility] [address], [place], [place], [address], [place] [address]. tel: [phone] 2019 - [facility] Walk-In Dysuria Referring S [facility], Center Provider: 33Yemi [place] 4 [place]DW[place], [address], [place] tel:+ [phone] 0001 - [facility] Fx closed [facility], Orthopedics radius, [place]. [facility] Posen headDislocatio 3 4433 [facility] n closed Pkwy E, [place], acromioclavicu [place], [place], [place] larWrist [address]. [place], painAftercare, tel:[phone], [place] healing [address] tel:60 traumatic fx, [phone] upper armAftercare, healing traumatic fx, lower arm 0001 - [facility] Radial head [facility]ITALTroppus Software, an [employer] [facility], Orthopedics fractureAcromi [place]. [facility] Posen oclavicular 3 [address] [facility] [address], [place], [place], [place] [address]. [place], [place], tel:[phone], [place] [address] tel:+ [phone] 0001 - [facility] Walk-In LumbagoLumbago Referring S [facility], Center Accidental Provider: 33-57 Gabriel fall NECPlace 3 NDWI Delmi of occurrence, [place], [address], [place] tel:+ [phone] 2019 - [facility] Urology Chronic renal Aug- AJIT S Inc, insufficiency AHMED. [facility] [address], [place], [place], [place], [address]. [address], [place] tel:[phone] tel:[phone] 0001 - S Walk-In LumbagoLumbago Aug- ZARRINI Referring S Inc, Center LumbagoLumbago 9 CHAVA. Provider: Sally Kaplanicott 2 [address] [facility], UHSWIC, GABRIEL. Street, [facility], [address]. [place], [place], tel:[phone], [place] [address] tel:[phone] 0001 - S Urology UPJ May- AJIT S Inc, obstruction, [address] [facility] acquired 2 30 [facility] [address], [place], [place], [place], [address]. [address], [place] tel:[phone] tel:[phone] 0001 - S Primary Gout NOSGout May- [facility] Inc, Care NOS 1 SHARIF. Gabriel 2 116 A [facility], [place], [place], [place] [address]. [place], [place], tel:[phone], [place] [address] tel:[phone] 0001 - S Primary Gout NOS Apr- [facility] Inc, Care 4-201 SHARIF. [place] 2 116 [address] [place], [place], [place] [address]. [place], [place], tel:[phone], [place] [address] tel:[phone] 0001 - S Walk-In Open Apr-0 WALKER Referring S Inc, Center woundWound 5-201 RADHA. 1302 Provider: Sally Zelaya open, scalp [address], [facility] w/o GABRIEL Zelaya. Street, [facility], [address]. [place] und [facility], site tel:[phone] [place], NOS w/o [address], [place] complicationWo tel:+ und open, site [phone] NOS w/o complication 0001 - [facility] Primary GoutGout NOS Calvin- PONTICIELLO S Inc, Care 2-201 SHARIF. [place] 2 [address] A [place]mi [place], Street, [place], [place], [place] [address]. [place], tel:[phone], [place] [address] tel:[phone] 0001 - S Primary Gout February- PONTICIELLO S Inc, Care NOSHypertensio 6-201 SHARIF. Gabriel n, essential 2 116 A Delmi NOSScreening [address]ac[address] [place], [place], for viral [place], [place], [place] disease [address]. [place], NECGout tel:[phone], [place] NOSHypertensio [address] tel:+160 n, essential [phone] NOS 0001 - S Walk-In Gout NOSGout February-0 WALKER Referring S Inc, Center NOSGout NOS RADHA. 1302 Provider: [place] 2 E [facility] Gabriel, [place], [address]. [place] tel:+[phone] [place], [address], [place] tel:[phone] 0001 - [facility] Urology Hypertension, AJIT S Inc, essential NOS 9-[address] [facility] 2 30 [facility] [address], [place], [place], [place], [address]. [address], [place] tel:[phone] tel:[phone] 0001 - S Primary Dermatophytosi Nov- PONTICIELLO S Inc, Care s, scalp and 8201 SHARIF. [place] beardHypertens 1 116 A Delmi ion, essential [address]ac[address] [place], [place], NOSDermatitis [place], [place], [place] NECDermatophyt [address]. [place], osis, scalp tel:[phone], [place] and [address] tel:+[phone] beardHypertens [phone] ion, essential NOS 0001 - S Primary Dermatophytosi Nov-1 PONTICIELLO S Inc, Care s, scalp and 4201 SHARIF. 33-57 [place] beardHypertens 1 [address] A Del[place] ion, essential [address], [place], NOSRetention, [place], [place], [place] urine [address]. [place], NOSChronic tel:[phone], [place] Kidney [address] tel:+60 Disease, Stage [id number] IV (severe)Dermat ophytosis, scalp and beardHypertens ion, essential NOSRetention, urine NOS 0001 - [facility] Walk-In Urinary Jul- Referring [facility], [place] retentionReten Provider: 33-57 Gabriel tion, urine 1 NDWI Delmi NOS GABRIEL. [place], [place], [address], [place] tel:[phone] - [facility] Walk-In GoutGout NOS Sep-0 WALKER Referring [facility], [place] RADHA. 1302 Provider: Kori-57 [place] [address] [facility], WANDYNJ Delmi [place], [place], [address]. [place] tel:[phone] [place], [address], [place] tel:[phone] - [facility] Primary Tinea Aug- [facility] Referring [facility] capitisCerumen SHARIF. Provider: Kori-57 Gabriel impactionDerma 1 116 A SHARIFJOSTIN Estrada tophytosis, [address], [facility] Street, scalp and [place], [place], , 116 A [place] beardImpacted [address]. [place], [place], cerumen tel:[phone] [facility], [address], [place] [address] [place], [place], tel:[phone] tel:[phone] - [facility] Walk-In Urinary Tract Apr- LOWRIPk MOSELEY. Referring [facility], Center InfectionUreth [facility] 4433 Provider: 33-57 [place] ritis [address] NDISIDRA Estrada NECUrethritis E, [place], GABRIEL. [place], [place], [address]. [place] NEC tel:[phone] [place], [phone], [place] tel:[phone] - [facility] Walk-In DysuriaDysuria Apr- WALKER Referring [facility], [facility] 2 RADHA. 1302 Provider: 33-57 [place] [address] , [facility] Delmi Gabriel, [place], [address]. Davon tel:[phone] [place], [address], [place] tel:[phone] - [facility] Walk-In Bleeding Calvin- WALKER Referring [facility], [facility] noseEpistaxis RADHA. 1302 Provider: 33-57 [place] [address], [facility] Delmi Gabriel, [place], [address]. Davon tel:[phone] [place], [address], [place] tel:[phone] 2019 - [facility] Primary Hypertension, Apr-0 [facility] Referring [facility], [facility] essential SHARIF. Provider: 33-Hung Zelaya NOSChronic 1 116 A SHARIF Delmi [facility], Disease, Stage [place], [place], , [address] [place] [address]. [place], (severe)Dermat tel:[phone] [facility], [address], [place] itis NOS [address] [place], [place], tel:[phone] tel:[phone] - [facility] Walk-In Urethritis Apr-0 LOWRIE PRADIP. Referring [facility], Center NECOrchitis/ep [facility] 4433 Provider: 33- Gabriel ididymitis [address] [facility] NOSUrethritis E, [place], ALVORD. [place], NECOrchitis/[place], [address]. Dav[place] ididymitis NOS tel:[phone] [place], [address], [place] tel:[phone] - [facility] Primary Chronic renal Feb-[address] [facility] Inc, Care [facility] disease, stage 4-201 33-57 IVErectile 1 Delmi dysfunctionEn[facility], ertensionFoot [place] pain, [place], [address], [place] tel:[phone] 2019 - [facility] Primary Calvin-2 MICHAEL S Inc, Care 5-200 [facility]. [address], [place] Floor [address], [address], [facility], [address]. [place], [place], tel:[phone], [place] [address] tel:[phone] 2019 - [facility] Primary Disorder, Calvin-[address] [facility] Inc, Care psychosexual 4-200 [facility]. [address] NOSRenal [address], [place] failure, acute Floor 5, Street, NOS [facility], [address]. [place], [place], tel:[phone], [place] [address] tel:[phone] Family History Family Member Diagnosis Age At [...] Covered constitution party ID Authorization(s) Blake Malik [facility] [id number] Medicaid [place] He [id number] Social History Type Description Quantity Date Captured [...] Physical Therapy Ordered: Referrals: Physical Therapy. Location: [facility] Absence Management Consultant & Rehab Ves. Evaluate and treat Referral Ordered: ordered Transplant Surgery (related to Chronic kidney disease, stage 5) Referral Ordered: ordered Referrals: Transplant Surgery. Evaluate and treat Appointment date/timeframe: 4 Weeks Referral Ordered: ordered Transplant Surgery AT [facility] Appointment date/timeframe: 4 Weeks Referral Ordered: ordered Referrals: Orthopedic Surgery. Evaluate and treat Appointment date/timeframe: 10/20/2018 Referral Ordered: ordered CT Abdomen & Pelvis w/o Contrast Appointment date/timeframe: 10/05/2018 Referral Ordered: ordered U/S Arterial Duplex upper extremity unilateral specify side Left Appointment date/timeframe: Stat Referral Ordered: ordered U/S Vascular Vein Mapping Hemodialysis Appointment date/timeframe: Today Referral Referred To: ordered JOHAN ALMENDAREZ [address] [facility] [address] [place], [address] [phone] Ordered: Vascular Surgery REFERRAL WITH JOHAN ALMENDAREZ AT [facility] Surgery - Vascular Appointment date/timeframe: [...] Referral Referred To: ordered FLORY RODRIGUEZ [address] [place], [address] [phone] Ordered: FLORY RODRIGUEZ. Nephrology. Consult and treat. Appointment date/timeframe: 12/29/2010 Referral Referred To: ordered MARTY CAMACHO [facility] [address] [place], [address] [phone] Ordered: MARTY CAMACHO. Urology. Consult and treat. [...] transportation - Thank you for choosing the [facility] Walk In. We hope that [...] your kidney functions decreasing Continue care of bilingual office assistant, Related to Chronic kidney disease, fistula site healing well stage 4 (severe) Avoid sexual intercourse until Related to Dysuria cultures return.For future encounters pelase have safe sex.Follow up with primary doctor, urologist, and bilingual office assistant - Thank you for choosing the [facility] Walk In. We hope that [...] follow up Related to Other prostatic with bilingual office assistant, and urologist as inflammatory diseases scheduled Cream faxed Related to Tinea unguium Patient scheduled for left AVF Related to Chronic kidney disease, creation with Dr. Almendarez. Vein stage 5 mapping ordered see educational handouttake Related to Gout of big toe medication as directed - Thank you for choosing the [facility] Walk In. We hope that [...] to ER. Thank you for choosing the [facility] Walk In. We hope that [...] 2-3 days. Thank you for choosing a [facility] Walk In. We hope and [...] painless range of motion, endurance and function ([facility] PT [place], front tender to schedule).- He is not interested in [...] to ER. Thank you for choosing the [facility] Walk In. We hope that [...] referral to Related to Hypertension, essential NOS custodial aide Given your clinical presentation Related to Chest pain and physical exam, I am sending you to the emergency room to rule out heart infarct.Disclaimer:Thank you for using the [facility] walk-in. We hope that you [...] primary care provider, ask at the front tender for a list of local providers who are accepting new patients. X-rays are interpreted by a radiologist, usually within 48 hours. If there is any important difference between the radiologist's interpretation and what you were told today by the provider, you will be notified. If you had cultures done today, the results will be available in 72 hours, depending on the specimen. High today, but you missed your Related to Hypertension, essential NOS pill today. Take daily for 2 weeks, come to follow up Referral to urology Related to Testicular pain We will consider bilingual office assistant Related to Chronic renal insufficiency referral after [...] choosing the Related to Chronic Kidney Disease, [place] Stage IV (severe) Walk In. We hope [...]
[2020-01-06 15:51] LABS: Urine Bacteria Absent (Absent); Urine Red Blood Cell Trace(0-2/hpf) (Absent); Urine Squamous Epithelial Cell Present (Absent); Urine White Blood Cell 1+(6-10/hpf) (Absent)
[2020-01-06 15:53] LABS: Albumin 4.2 g/dL (3.2-5.2); Albumin/Globulin Ratio 1.3 (1-3); BUN/Creatinine Ratio 3.5 (8-20); EGFR African American 4.5 (>60); EGFR Non-African American 3.7 (>60); Globulin 3.3 g/dL (2-4); Total Bilirubin 0.4 mg/dL (0.2-1.0); Total Protein 7.5 g/dL (6.4-8.9)
[2020-01-06 16:10] LABS: Potassium 5.5 mmol/L (3.5-5.0)
[2020-01-06 17:04] VITALS: BP 130/82
[2020-01-07 13:56] LABS: Chlamydia trachomatis NAA Negative (Negative); Neisseria gonorrhoeae (GC) NAA Negative (Negative)
== END | disposition home or self-care (01) ==
LOC: ED 15:01
DX: I12.0 Hypertensive chronic kidney disease with stage 5 chronic kidney disease or end stage renal disease (principal); N18.6 End stage renal disease; R30.0 Dysuria; Z99.2 Dependence on renal dialysis; Z88.6 Allergy status to analgesic agent; Z79.899 Other long term (current) drug therapy
CPT/HCPCS: 36415; 80053; 81003; 81015; 85025; 87086; 87491; 87591; 93005; 99282

== ENCOUNTER 2020-11-19 10:45 | Inpatient (IN) ==
[2020-11-19 12:42] LABS: ABS Eosinophils 0.1 10^3/ul (0-0.6); ABS Lymphocytes 0.9 10^3/ul (1.0-4.8); ABS Monocytes 0.3 10^3/ul (0-0.8); ABS Neutrophils 1.9 10^3/ul (1.5-7.7); Eosinophil % 4.3 %; Hematocrit 29 % (42-52); Hemoglobin 9.7 g/dL (14.0-18.0); Lymphocyte % 27.5 %; Mean Corpuscular HGB Conc 34 g/dL (31-36); Mean Corpuscular Hemoglobin 34 pg (27-31); Mean Corpuscular Volume 99 fL (80-94); Mean Platelet Volume 7.6 fL (7.4-10.4); Nucleated Red Blood Cells % 0.1; Platelet Count 162 10^3/uL (150-450); Red Blood Count 2.88 10^6 /uL (4.18-5.48); Red Cell Distribution Width 13 % (10-15); White Blood Count 3.3 10^3/uL (3.5-10.8)
[2020-11-19 13:01] LABS: Albumin 3.9 g/dL (3.2-5.2); Albumin/Globulin Ratio 1.6 (1-3); C Reactive Protein 2.06 mg/L (<8.01); Calcium 7.1 mg/dL (8.6-10.3); EGFR African American 3.2 (>60); EGFR Non-African American 2.6 (>60); Globulin 2.4 g/dL (2-4); Magnesium 2.2 mg/dL (1.9-2.7); Phosphorus 7.3 mg/dL (2.5-5.0); Total Bilirubin 0.3 mg/dL (0.2-1.0); Total Protein 6.3 g/dL (6.4-8.9)
[2020-11-19 13:26] LABS: BUN/Creatinine Ratio 7.1 (8-20); Potassium 6.3 mmol/L (3.5-5.0)
[2020-11-19] MEDS ORDERED: CALCIUM GLUCONATE 1GM/50ML NS 1 GM/50 ML BAG IV ONE (14:01)
[2020-11-19] MEDS ORDERED: Dextrose 50% Syringe 50 ml 25 GM/50 ML SYRINGE IV PUSH ONE ×2 (14:03→14:04)
[2020-11-19] MEDS ORDERED: Dextrose 50% Syringe 50 ml 25 GM/50 ML SYRINGE IV PUSH PRN (16:08)
[2020-11-19] MEDS ORDERED: Dextrose 50% Syringe 50 ml 25 GM/50 ML SYRINGE ONE (16:08)
[2020-11-19] MEDS: Heparin 5000 UNITS/ML 1 mL VIAL SUBCUT SCH (20:44)
[2020-11-19 22:15] LABS: Calcium 7.2 mg/dL (8.6-10.3); EGFR African American 3.2 (>60); EGFR Non-African American 2.7 (>60)
[2020-11-19 22:16] LABS: Potassium 5.9 mmol/L (3.5-5.0)
[2020-11-19 22:33] LABS: BUN/Creatinine Ratio 7.4 (8-20)
[2020-11-19] MEDS ORDERED: Patiromer POWDER 8.4 GM PAK PO ONE (22:41)
[2020-11-19] MEDS ORDERED: Calcium Carb (TUMS) 500 mg CHEW TAB PO ONE (23:26)
[2020-11-20 05:53] LABS: EGFR African American 3.3 (>60); EGFR Non-African American 2.7 (>60)
[2020-11-20 05:56] LABS: Potassium 5.3 mmol/L (3.5-5.0)
[2020-11-20 06:09] LABS: BUN/Creatinine Ratio 7.4 (8-20)
[2020-11-20] MEDS: Heparin 5000 UNITS/ML 1 mL VIAL SUBCUT SCH ×2 (06:15→15:46)
[2020-11-20 12:57] VITALS: BP 135/72
[2020-11-20] MEDS: Heparin 1,000 UNIT/ML 10 ml (10,000 UNITS) CATHLAB/DIALYSIS DIALYSIS ONE ×3 (13:00→14:55)
[2020-11-22 16:32] LABS: Hepatitis B Surface Antigen Nonreactive (Nonreactive)
[2020-11-22 16:49] LABS: Hepatitis B Surface Ab Immune (Immune)
== END 2020-11-20 16:35 | disposition home or self-care (01) | DRG 640 ==
LOC: ED 10:45 → MEDTELE 10:45 → OBSVTOIN 16:19 → MEDTELE 19:38
PROVIDERS: ADMIT Internal Medicine; ATTEND Internal Medicine

== ENCOUNTER 2021-06-18 07:47 | Observation (INO) ==
[2021-06-18 14:21] LABS: Hepatitis B Surface Ab Immune (Immune)
[2021-06-18 17:26] LABS: Hepatitis B Surface Antigen Nonreactive (Nonreactive)
[2021-06-19] MEDS ORDERED: DILTIAZEM 120 MG PO SCH (09:00)
[2021-06-19 11:21] VITALS: BP 184/97
[2021-06-19 12:12] LABS: EGFR African American 3.7 (>60); Potassium 4.3 mmol/L (3.5-5.0)
[2021-06-19 12:51] LABS: Calcium 6.5 mg/dL (8.6-10.3)
[2021-06-19] MEDS ORDERED: COVID-19 VACCINE, MRNA(MODERNA)/PF 100 MCG/0.5 ML IM ONE (16:00)
== END 2021-06-19 15:25 | disposition home or self-care (01) ==
LOC: MED 07:47 → ED 07:47 → MED 11:07
PROVIDERS: ADMIT Hospitalist; ATTEND Hospitalist

== ENCOUNTER 2021-09-14 11:48 | Inpatient (IN) ==
[2021-09-14 14:37] LABS: Venous Bicarbonate HCO3 10.5 mmol/L (24-28)
[2021-09-14 14:39] LABS: ABS Lymphocytes 0.4 10^3/ul (1.0-4.8); ABS Monocytes 0.2 10^3/ul (0-0.8); ABS Neutrophils 3.7 10^3/ul (1.5-7.7); Eosinophil % 0.1 %; Hematocrit 31 % (42-52); Hemoglobin 10.9 g/dL (14.0-18.0); Lymphocyte % 8.5 %; Mean Corpuscular HGB Conc 35 g/dL (31-36); Mean Corpuscular Hemoglobin 34 pg (27-31); Mean Corpuscular Volume 97 fL (80-94); Mean Platelet Volume 8.1 fL (7.4-10.4); Platelet Count 143 10^3/uL (150-450); Red Blood Count 3.21 10^6 /uL (4.18-5.48); Red Cell Distribution Width 14 % (10-15); White Blood Count 4.3 10^3/uL (3.5-10.8)
[2021-09-14 15:01] LABS: Albumin 3.3 g/dL (3.2-5.2); Albumin/Globulin Ratio 1.2 (1-3); Globulin 2.8 g/dL (2-4); Magnesium 1.9 mg/dL (1.9-2.7); Phosphorus 9.5 mg/dL (2.5-5.0); Total Bilirubin 0.3 mg/dL (0.2-1.0); Total Protein 6.1 g/dL (6.4-8.9)
[2021-09-14 15:13] LABS: Calcium 6.1 mg/dL (8.6-10.3); Potassium 6.1 mmol/L (3.5-5.0)
[2021-09-14] MEDS ORDERED: Sodium Polystyrene ORAL.SUSP 15 GM/60 ML BTL PO ONE (15:22)
[2021-09-14] MEDS ORDERED: Dextrose 50% Syringe 50 ml 25 GM/50 ML SYRINGE IV PUSH ONE (15:24)
[2021-09-14] MEDS: Sodium Bicarb 8.4% Vial 50 ML 150 MEQ in D5W 1000 ml BAG 850 ML IV ONE ×2 (16:02→18:23)
[2021-09-14] MEDS: CALCIUM GLUCONATE 1GM/50ML NS 1 GM/50 ML BAG IV ONE ×2 (16:02→17:07)
[2021-09-14] MEDS: Dextrose 50% Syringe 50 ml 25 GM/50 ML SYRINGE IV PUSH ONE ×2 (16:03→17:04)
[2021-09-14] MEDS ORDERED: tadalafiL 5 MG TABLET (NF) PO PRN (16:39)
[2021-09-14 17:45] LABS: eGFR CKD-EPI 1.5 (>60)
[2021-09-14] MEDS: Sodium Bicarb 8.4% Vial 50 ML 150 MEQ in D5W 1000 ml BAG 850 ML IV SCH ×2 (18:24→19:09)
[2021-09-14 22:42] LABS: Potassium 5.6 mmol/L (3.5-5.0)
[2021-09-14 22:58] LABS: eGFR CKD-EPI 1.5 (>60)
[2021-09-15 06:32] LABS: ABS Lymphocytes 0.4 10^3/ul (1.0-4.8); ABS Monocytes 0.3 10^3/ul (0-0.8); ABS Neutrophils 2.1 10^3/ul (1.5-7.7); Eosinophil % 1.6 %; Hematocrit 27 % (42-52); Hemoglobin 9.5 g/dL (14.0-18.0); Lymphocyte % 14.7 %; Mean Corpuscular HGB Conc 35 g/dL (31-36); Mean Corpuscular Hemoglobin 34 pg (27-31); Mean Corpuscular Volume 96 fL (80-94); Mean Platelet Volume 7.8 fL (7.4-10.4); Platelet Count 137 10^3/uL (150-450); Red Blood Count 2.83 10^6 /uL (4.18-5.48); Red Cell Distribution Width 14 % (10-15); White Blood Count 2.9 10^3/uL (3.5-10.8)
[2021-09-15 06:48] LABS: Potassium 4.7 mmol/L (3.5-5.0)
[2021-09-15 06:58] LABS: Calcium 5.3 mg/dL (8.6-10.3)
[2021-09-15 07:09] LABS: eGFR CKD-EPI 1.5 (>60)
[2021-09-15] MEDS ORDERED: Heparin 1,000 UNIT/ML 10 ml (10,000 UNITS) CATHLAB/DIALYSIS DIALYSIS ONE ×2 (08:00→15:30)
[2021-09-15] MEDS: Sodium Bicarb 8.4% Vial 50 ML 150 MEQ in D5W 1000 ml BAG 850 ML IV SCH (08:51)
[2021-09-15] MEDS: Heparin 1,000 UNIT/ML 10 ml (10,000 UNITS) CATHLAB/DIALYSIS DIALYSIS ONE ×2 (10:16→11:22)
[2021-09-15 13:13] LABS: Hepatitis B Surface Antigen Nonreactive (Nonreactive)
[2021-09-15 13:19] LABS: Hepatitis B Core IgM Nonreactive (Nonreactive)
[2021-09-15 13:31] LABS: Hepatitis B Surface Ab Immune (Immune)
[2021-09-15] MEDS ORDERED: Metoclopramide 5 MG/ML VIAL (10 mg) IV PRN (15:03)
[2021-09-16 06:40] LABS: Hematocrit 26 % (42-52); Mean Corpuscular HGB Conc 35 g/dL (31-36); Mean Corpuscular Hemoglobin 33 pg (27-31); Mean Corpuscular Volume 95 fL (80-94); Mean Platelet Volume 7.8 fL (7.4-10.4); Platelet Count 134 10^3/uL (150-450); Red Cell Distribution Width 14 % (10-15); White Blood Count 1.8 10^3/uL (3.5-10.8)
[2021-09-16 06:56] LABS: eGFR CKD-EPI 2.1 (>60)
[2021-09-16 07:05] LABS: Calcium 5.1 mg/dL (8.6-10.3)
[2021-09-16] MEDS ORDERED: Calcium CHLORIDE 10% SYRINGE 1 GM/10 ML IV ONE (11:11)
[2021-09-16 12:04] LABS: Phosphorus 7.9 mg/dL (2.5-5.0)
[2021-09-16] MEDS: Heparin 1,000 UNIT/ML 10 ml (10,000 UNITS) CATHLAB/DIALYSIS DIALYSIS ONE ×3 (13:25→15:09)
[2021-09-16 14:27] LABS: Vitamin D Total 25(OH) 9.6 ng/mL (20-50)
[2021-09-16 18:26] LABS: Calcium 6.5 mg/dL (8.6-10.3); Potassium 3.4 mmol/L (3.5-5.0)
[2021-09-17] MEDS: Heparin 1,000 UNIT/ML 10 ml (10,000 UNITS) CATHLAB/DIALYSIS DIALYSIS ONE ×3 (09:20→11:10)
[2021-09-17 15:30] LABS: ABS Eosinophils 0.1 10^3/ul (0-0.6); ABS Lymphocytes 0.4 10^3/ul (1.0-4.8); ABS Monocytes 0.3 10^3/ul (0-0.8); ABS Neutrophils 1.6 10^3/ul (1.5-7.7); Eosinophil % 4.2 %; Hematocrit 28 % (42-52); Lymphocyte % 16.2 %; Mean Corpuscular HGB Conc 35 g/dL (31-36); Mean Corpuscular Hemoglobin 33 pg (27-31); Mean Corpuscular Volume 94 fL (80-94); Mean Platelet Volume 7.3 fL (7.4-10.4); Platelet Count 169 10^3/uL (150-450); Red Cell Distribution Width 13 % (10-15); White Blood Count 2.4 10^3/uL (3.5-10.8)
[2021-09-17 15:53] LABS: Calcium 6.5 mg/dL (8.6-10.3); Phosphorus 4.2 mg/dL (2.5-5.0); Potassium 3.7 mmol/L (3.5-5.0); eGFR CKD-EPI 4.4 (>60)
[2021-09-17 16:02] LABS: INR 1.01 (0.86-1.15)
[2021-09-18] MEDS: Heparin 1,000 UNIT/ML 10 ml (10,000 UNITS) CATHLAB/DIALYSIS DIALYSIS ONE ×3 (09:25→11:28)
[2021-09-18 13:33] VITALS: BP 148/99
== END 2021-09-18 17:44 | disposition left against medical advice (07) | DRG 682 ==
LOC: EDHOLD 11:48 → ED 11:48 → MED 20:23 → SUATTDRO 09-16 14:20
PROVIDERS: ADMIT Internal Medicine; ATTEND Hospitalist

== ENCOUNTER 2021-11-15 20:38 | Observation (INO) ==
[2021-11-15 21:06] LABS: ABS Basophils 0.1 10^3/ul (0-0.2); ABS Eosinophils 0.1 10^3/ul (0-0.6); ABS Lymphocytes 0.8 10^3/ul (1.0-4.8); ABS Monocytes 0.5 10^3/ul (0-0.8); ABS Neutrophils 4.6 10^3/ul (1.5-7.7); Hematocrit 27 % (42-52); Hemoglobin 9.1 g/dL (14.0-18.0); Lymphocyte % 12.7 %; Mean Corpuscular HGB Conc 34 g/dL (31-36); Mean Corpuscular Hemoglobin 35 pg (27-31); Mean Corpuscular Volume 100 fL (80-94); Mean Platelet Volume 7.1 fL (7.4-10.4); Platelet Count 208 10^3/uL (150-450); Red Blood Count 2.64 10^6 /uL (4.18-5.48); Red Cell Distribution Width 14 % (10-15)
[2021-11-15 21:23] LABS: Albumin 4.1 g/dL (3.2-5.2); Albumin/Globulin Ratio 1.4 (1-3); C Reactive Protein 12.99 mg/L (<8.01); Calcium 7.7 mg/dL (8.6-10.3); Total Bilirubin 0.4 mg/dL (0.2-1.0); Total Protein 7.1 g/dL (6.4-8.9)
[2021-11-15] MEDS ORDERED: Dextrose 50% Syringe 50 ml 25 GM/50 ML SYRINGE IV PUSH ONE ×2 (21:29)
[2021-11-15 21:30] LABS: Potassium 7.8 mmol/L (3.5-5.0)
[2021-11-15] MEDS ORDERED: Calcium Gluconate 2 GM in NS 0.9% 100 ml BAG 100 ML IVPB ONE (21:30)
[2021-11-15] MEDS: Patiromer POWDER 8.4 GM PAK PO SCH (21:55)
[2021-11-15 22:15] LABS: eGFR CKD-EPI 1.6 (>60)
[2021-11-16] MEDS ORDERED: Albuterol HFA INHALER 8 gm MDI INH ONE (06:27)
[2021-11-16] MEDS ORDERED: Calcium Gluconate 2 GM in NS 0.9% 100 ml BAG 100 ML IVPB ONE (06:28)
[2021-11-16] MEDS ORDERED: Dextrose 50% Syringe 50 ml 25 GM/50 ML SYRINGE IV PUSH ONE (06:28)
[2021-11-16] MEDS ORDERED: Cholecalciferol (VIT D3) 1,000 unit TAB PO SCH (09:00)
[2021-11-16] MEDS ORDERED: cloNIDine 0.3 MG PATCH 0.3 MG/24 HR 7 DAY PATCH TRANSDERM SCH (09:00)
[2021-11-16] MEDS: Heparin 1,000 UNIT/ML 10 ml (10,000 UNITS) CATHLAB/DIALYSIS DIALYSIS ONE ×4 (09:30→12:39)
[2021-11-16] MEDS: Patiromer POWDER 8.4 GM PAK PO SCH (11:31)
[2021-11-16 12:52] VITALS: BP 201/120
[2021-11-16] MEDS ORDERED: LORazepam 2 mg VIAL 1 ml ONE (13:30)
[2021-11-16] MEDS ORDERED: Lorazepam PYXIS KEY ONE (13:30)
[2021-11-16] MEDS ORDERED: Labetalol IV 5 MG/ML 20 ml VIAL ONE (13:40)
[2021-11-16] MEDS ORDERED: Labetalol IV 5 MG/ML 20 ml VIAL IV PUSH ONE (13:41)
[2021-11-16] MEDS ORDERED: Labetalol IV 5 MG/ML 20 ml VIAL IV PUSH PRN (14:46)
[2021-11-16 14:57] LABS: ABS Lymphocytes 0.4 10^3/ul (1.0-4.8); ABS Monocytes 0.2 10^3/ul (0-0.8); ABS Neutrophils 3.3 10^3/ul (1.5-7.7); Eosinophil % 0.5 %; Hematocrit 28 % (42-52); Lymphocyte % 9.6 %; Mean Corpuscular HGB Conc 32 g/dL (31-36); Mean Corpuscular Hemoglobin 33 pg (27-31); Mean Corpuscular Volume 103 fL (80-94); Mean Platelet Volume 7.8 fL (7.4-10.4); Platelet Count 190 10^3/uL (150-450); Red Blood Count 2.69 10^6 /uL (4.18-5.48); Red Cell Distribution Width 14 % (10-15); White Blood Count 3.9 10^3/uL (3.5-10.8)
[2021-11-16 15:11] LABS: Troponin I 0.05 ng/mL (<0.03)
[2021-11-16 15:40] LABS: Blood Urea Nitrogen 84 mg/dL (6-24); Calcium 8.6 mg/dL (8.6-10.3); Chloride 97 mmol/L (101-111); Glucose 96 mg/dL (70-100); Magnesium 2.2 mg/dL (1.9-2.7); Phosphorus 7.1 mg/dL (2.5-5.0); Potassium 4.4 mmol/L (3.5-5.0); Sodium 137 mmol/L (135-145); eGFR CKD-EPI 3.2 (>60)
[2021-11-16 15:43] LABS: Anion Gap 26 mmol/L (2-11); CO2 Carbon Dioxide 14 mmol/L (22-32)
[2021-11-16 16:08] LABS: Hepatitis B Surface Antigen Nonreactive (Nonreactive)
[2021-11-16 16:25] LABS: Hepatitis B Surface Ab Immune (Immune)
== END 2021-11-16 15:33 | disposition left against medical advice (07) ==
LOC: EDHOLD 20:38 → ED 20:38 → MEDTELE 11-16 08:58
PROVIDERS: ADMIT Internal Medicine; ATTEND Surgery Surgical Critical Care